=== PATIENT | female | born 1965 | race Caucasian/White ===

== ENCOUNTER 2017-04-07 17:56 | Observation (INO) ==
--- NOTE | 2017-04-07 18:27 | Emergency Department Note ---
START Narrative - START START: I examined this patient and my medical decision-making was reviewed with the Resident Physician. I agree with the documented findings, disposition and treatment plan as described except to the extent set forth below. 51-year-old female presents emergency room for chest pain and syncope. She states that having chest pain last evening. Worse today. So she with 3 fainting spells that she describes them while attempting to stand. She states she has a history of coronary artery disease with one stent placed in 2012. She had a chemical stress test done on Wednesday. This was done not for chest pain but was done for preoperative clearance for an upcoming gastric bypass surgery. She felt fine up until last evening. She has not had any heart catheterization since 2012. She is having some chest discomfort at this time that radiates to her left jaw and back and left shoulder. I feel in the setting of 3 fainting episodes as well as chest pain today that she needs to be admitted for observation.
[2017-04-07] MEDS ORDERED: 0.9 % Sodium Chloride 1,000 ML IVC ONE (18:29)
[2017-04-07] MEDS ORDERED: Aspirin 325 MG TABLET PO ONE (18:29)
--- NOTE | 2017-04-07 18:54 | Emergency Department Note ---
Disposition Clinical Impression: Chest pain Qualifiers: Chest pain type: unspecified Qualified Code(s): R07.9 - Chest pain, unspecified Syncope Qualifiers: Syncope type: unspecified Qualified Code(s): R55 - Syncope and collapse Disposition: Still a Patient Condition: Good Referrals: Gonzalo Jones DO [Primary Care Provider] - Forms: ED Satisfaction Letter Chest Pain HPI - General Chief Complaint: ED Chest Pain Stated Complaint: Chest pain Time Seen by Provider: 04/07/17 18:06 Source: patient Limitations: no limitations Vital Signs Reviewed: Yes Nursing Notes Reviewed: Yes - History of Present Illness HPI Narrative: Ms. Maldonado is 51-year-old female with a past medical history of hypertension, CVA, and SVT presents to the ED for chest pain and syncope. She also states she has a history of coronary artery disease with one stent placed in 2012. She states that she had chest pain last evening that worsened today. She describes the chest pain as heavy pressure in the middle of her chest that radiates to her back and up to the left side of her jaw. She also stated that she had three fainting episodes last night after she had sex with her . She denies any head trauma and stated that each fainting spell lasted for no more than 30 seconds. She also had a chemical stress test done on Wednesday for preoperative clearance for an upcoming gastric bypass surgery. 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 Del Rio, and he recommended that she comes to the ED. She admits continued chest pain and shortness of breath. She denies any fever, headaches, palpitations, abdominal pain, nausea and vomiting, constipation, diarrhea,and weaknesses. Onset (ago): day(s) (one day) Duration: constant Onset: during rest Severity scale (1-10): 8 Pain Radiation: back, jaw/teeth Improves with: nothing Worsens with: nothing Associated symptoms: Reports: dyspnea. Denies: nausea, vomiting, diaphoresis, palpitations, fever - Related Data Home Medications Medication Instructions Recorded Confirmed Atenolol [Tenormin] 25 mg PO DAILY 04/23/15 03/22/17 Escitalopram [Lexapro] 20 mg PO HS 04/23/15 03/22/17 Fenofibrate [Tricor] 54 mg PO BID 04/23/15 03/22/17 Insulin Glargine,Hum.rec.anlog 30 unit SQ HS 04/23/15 03/22/17 [Lantus Solostar] Lamotrigine [Lamictal] 100 mg PO HS 04/23/15 03/22/17 Levothyroxine [Synthroid] 25 mcg PO QAM 04/23/15 03/22/17 Liraglutide [Victoza 2-Aravind] 1.8 mg SQ DAILY 04/23/15 03/22/17 Loxapine Succinate [Loxapine] 10 mg PO HS 04/23/15 03/22/17 Pravastatin Sodium [Pravachol] 40 mg PO HS 04/23/15 03/22/17 Topiramate [Topamax] 50 mg PO BID 04/23/15 03/22/17 Trospium Chloride 20 mg PO HS 04/23/15 03/22/17 Aspirin 81 mg PO DAILY 01/06/16 03/22/17 Benztropine [Cogentin] 0.5 mg PO BID 01/06/16 03/22/17 Insulin ASPART [Novolog Flexpen] 5 unit SQ TIDWM 01/06/16 03/22/17 Etanercept [Enbrel] 50 mg SQ MO 03/08/16 03/22/17 Folic Acid 1 mg PO DAILY 03/08/16 03/22/17 Pioglitazone [Actos] 30 mg PO DAILY 07/06/16 03/22/17 Famotidine [Pepcid] 40 mg PO BID 10/14/16 03/22/17 LORazepam [Ativan] 0.5 mg PO DAILY PRN 10/14/16 03/22/17 Loratadine [Claritin] 10 mg PO DAILY 10/14/16 03/22/17 Meclizine HCl [Verticalm] 25 mg PO BID PRN 10/14/16 03/22/17 Montelukast [Singulair] 10 mg PO QPM 10/14/16 03/22/17 Multivitamin [Multi-Day Vitamins] 1 each PO DAILY 10/14/16 03/22/17 Nitroglycerin [Nitrostat] 0.4 mg SL Q3MIN PRN 10/14/16 03/22/17 SUMAtriptan succinate [Imitrex] 50 - 100 mg PO DAILY PRN 10/14/16 03/22/17 Cholecalciferol (Vitamin D3) 4,000 unit PO QDPC 12/25/16 03/22/17 [Vitamin D3] Methotrexate [Otrexup] 15 mg PO TH 12/25/16 03/22/17 Promethazine HCl 12.5 mg PO Q4-6H PRN 12/25/16 03/22/17 Allergies Allergy/AdvReac Type Severity Reaction Status Date / Time adenosine [From Adenocard] AdvReac Hypertensio Verified 03/22/17 12:35 n azithromycin AdvReac Nausea, Verified 03/22/17 12:35 rash diazepam AdvReac See Verified 03/22/17 12:35 Comments diltiazem AdvReac See Verified 03/22/17 12:35 Comments duloxetine [From Cymbalta] AdvReac See Verified 03/22/17 12:35 Comments Erythromycin Base AdvReac See Verified 03/22/17 12:35 [From Rolando-Tab] Comments metformin AdvReac flu like Verified 03/22/17 12:35 symptoms sertraline [From Zoloft] AdvReac "makes me Verified 03/22/17 12:35 cry" Verapamil AdvReac Hypertensio Verified 03/22/17 12:35 n Constitutional: Denies: fever, chills, weakness, weight change Eyes: Denies: eye pain, eye discharge, vision change ENT ED: Denies: ear pain, throat pain, dental pain, hearing loss, epistaxis, congestion, dysphagia Cardiovascular: Reports: as per HPI, chest pain. Denies: palpitations, syncope Respiratory: Reports: dyspnea. Denies: cough, wheezes, hemoptysis, stridor Gastrointestinal: Denies: abdominal pain, nausea, vomiting, diarrhea, constipation, hematemesis, melena, hematochezia Genitourinary: Denies: dysuria, frequency, hematuria, discharge Musculoskeletal: Denies: back pain, neck pain, arthralgia, myalgia Integumentary: Denies: rash, abrasion, lesions Neurological: Denies: headache, weakness, numbness, paresthesias, confusion, abnormal gait, vertigo Psychiatric: Denies: anxiety, depression, suicidal thoughts, homicidal thoughts , auditory hallucinations, visual hallucinations Endocrine: Denies: fatigue Hematological/Lymphatic: Denies: easy bleeding, easy bruising Allergic/Immunologic: Denies: facial swelling, urticaria Chest Pain PMH - Past Medical History Medical history: Reports: arthritis, asthma, coronary artery disease, diabetes, fibromyalgia, GERD, hyperlipidemia, hypertension, migraine, thyroid disease, valvular heart disease, other Surgical history: Reports: angioplasty/stent, breast surgery, cholecystectomy, herniorrhaphy, hip replacement, hysterectomy, orthopedic, other, pacemaker/AICD Psychiatric history: Reports: anxiety, depression 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 - Social History Smoking Status: Never smoker Alcohol use: Reports: none Drug use: Reports: none Physical Exam - General Limitations: no limitations General appearance: alert - Head Head exam: atraumatic, normocephalic, normal inspection - Eye Eye exam: Present: normal appearance, PERRL, EOMI - Expanded Eye Exam Pupils: Left: reactive - ENT ENT exam: normal exam, normal oropharynx, mucous membranes moist - Expanded ENT Exam External ear exam: Present: normal external inspection Mouth exam: Present: normal external inspection Teeth exam: Present: normal inspection Throat exam: Present: normal inspection - Neck Neck exam: Present: normal inspection, full ROM, trachea midline - Chest Chest inspection: Present: normal inspection, symmetric chest wall rise - Respiratory Respiratory exam: Present: normal lung sounds bilaterally. Absent: respiratory distress, wheezes - Cardiovascular Cardiovascular exam: Present: regular rate, normal rhythm, normal heart sounds. Absent: rubs, gallop, clicks - Abdominal Exam Abdominal exam: Present: soft, Non-Tender. Absent: tenderness, distention, guarding, rebound, rigidity - Extremities Exam Extremities exam: Present: normal inspection, full ROM. Absent: tenderness, pedal edema - Expanded Upper Extremity Exam Shoulder exam: Present: normal inspection, full ROM Arm exam: Present: normal inspection, full ROM Elbow exam: Present: normal inspection, full ROM Forearm/Wrist exam: Present: normal inspection, full ROM Hand exam: Present: normal inspection, full ROM Vascular exam: Normal: capillary refill, radial pulse - Expanded Lower Extremity Exam Hip/Pelvis exam: Present: normal inspection, full ROM Upper leg exam: Present: normal inspection, full ROM Knee exam: Present: normal inspection, full ROM Lower leg exam: Present: full ROM, swelling (+1 pitting edema in the bilateral lower extremities) Ankle exam: Present: normal inspection, full ROM Foot/toe exam: Present: normal inspection, full ROM Neurovascular/Tendon exam: Absent: motor deficit, sensory deficit, tendon deficit - Back Exam Back exam: Present: normal inspection, full ROM. Absent: tenderness - Neurological Exam Neurological exam: Present: alert, oriented X3, CN II-XII intact - Expanded Neurological Exam Patient oriented to: Present: person, place, time Cranial nerves: EOM function (II, III, IV, ): Normal, facial sensation (V): Normal, facial palsy (VII): Normal Cerebellar function: finger to nose: Normal Coma Scale Eye Opening: Spontaneous Coma Scale Motor Response: Obeys Commands Coma Scale Verbal Response: Oriented Coma Scale Total: 15 - Psychiatric Psychiatric exam: Present: normal affect, normal mood - Skin Skin exam: Present: warm, dry, intact, normal color Course Vital Signs Temperature 97.4 F L 04/07/17 17:59 Pulse Rate 83 04/07/17 17:59 Respiratory Rate 18 04/07/17 17:59 Blood Pressure 152/104 04/07/17 17:59 O2 Sat by Pulse Oximetry 100 04/07/17 17:59 Temperature 97.4 F L 04/07/17 17:59 Pulse Rate 83 04/07/17 17:59 Respiratory Rate 18 04/07/17 17:59 Blood Pressure 152/104 04/07/17 17:59 O2 Sat by Pulse Oximetry 100 04/07/17 17:59 Oxygen Delivery Oxygen Delivery Room Air Chest Pain - MDM Narrative Medical decision making narrative: Ms. Maldonado is 51-year-old female with a past medical history of hypertension, CVA, and SVT presents to the ED for chest pain and syncope. She also states she has a history of coronary artery disease with one stent placed in 2012. She states that she had chest pain last evening that worsened today. She describes the chest pain as heavy pressure in the middle of her chest that radiates to her back and up to the left side of her jaw. Imaging is still pending. Will sign out patient to night team. - Medical Records Medical records reviewed: Yes I reviewed the patient's medical records. - EKG Data EKG attestation: Yes I reviewed and interpreted this EKG. EKG shows normal: sinus rhythm Rate: normal Rhythm: NSR [place]/QRS: normal Interpretation: no acute changes
[2017-04-07] MEDS: Nitroglycerin 0.4 MG TAB.SUBL SL PRN ×3 (19:00→19:31)
[2017-04-07 19:06] LABS: Basophils % 0.4 %; Eosinophils # 0.2 K/mcL (0.0-0.6); Eosinophils % 3.1 %; Hematocrit 38.5 % (35.3-44.9); Hemoglobin 12.2 g/dL (11.5-15.4); Immature Granulocytes % 0.4 % (0-4); Lymphocytes # 2.4 K/mcL (0.6-4.6); Lymphocytes % 48.9 %; Mean Corpuscular HGB Conc 31.7 g/dL (31.6-35.5); Mean Corpuscular Hemoglobin 30.4 pg (28.0-33.3); Mean Platelet Volume 10.6 fL (9.4-12.4); Monocytes # 0.5 K/mcL (0.0-1.3); Monocytes % 9.2 %; Neutrophils # 1.9 K/mcL (1.6-8.9); Platelet Count 138 K/mcL (140-400); Red Blood Count 4.01 M/mcL (3.82-4.97); Red Cell Distribution Width 13.9 % (11.5-14.5)
[2017-04-07 19:11] LABS: Prothrombin Time 10.4 Seconds (9.4-12.1)
[2017-04-07 19:13] LABS: Activated Partial Thrombo Time 29.4 Seconds (26.0-36.0)
[2017-04-07 19:18] LABS: BUN/Creatinine Ratio 14 (6-26); Blood Urea Nitrogen 16 mg/dL (7-20); Calcium 9.3 mg/dL (8.6-10.8); Carbon Dioxide 22 mEq/L (19-29); Chloride 110 mEq/L (98-109); Glucose 190 mg/dL (70-99); Osmolality,Calculated 298 (280-300); Sodium 141 mEq/L (136-145); eGFR For African Americans > 60 (> 60); eGFR For Non-African Americans 50 (> 60)
[2017-04-07 19:28] LABS: Platelet Clumps Few (Not Present); Platelet Estimate Normal (Normal)
[2017-04-07 19:55] LABS: Bilirubin,Urine Negative (Negative); Blood,Urine Negative (Negative); Clarity,Urine Clear (Clear); Color,Urine Yellow (Yellow); Glucose,Urine (UA) 100 mg/dL (Normal); Ketones,Urine Negative (Negative); Leukocyte Esterase,Urine Negative (Negative); Nitrite,Urine Negative (Negative); Protein,Urine Negative (Neg-Trace); Specific Gravity,Urine 1.011 (1.010-1.025); Urobilinogen,Urine Normal (Normal)
--- NOTE | 2017-04-07 20:05 | Emergency Department Note ---
Disposition Clinical Impression: Chest pain Qualifiers: Chest pain type: unspecified Qualified Code(s): R07.9 - Chest pain, unspecified Syncope Qualifiers: Syncope type: unspecified Qualified Code(s): R55 - Syncope and collapse Disposition: Admitted As Inpatient Condition: Good Referrals: Gonzalo Jones DO [Primary Care Provider] - Forms: ED Satisfaction Letter Time of Disposition: 20:56 General Adult HPI - General Chief complaint: ED Chest Pain Stated complaint: Chest pain Time Seen by Provider: 04/07/17 18:06 Source: patient Limitations: no limitations Nursing Notes Reviewed: Yes Vital Signs Reviewed: Yes - History of Present Illness Pain Scale: 6 - Related Data Home Medications Medication Instructions Recorded Confirmed Atenolol [Tenormin] 25 mg PO DAILY 04/23/15 04/07/17 Escitalopram [Lexapro] 20 mg PO HS 04/23/15 04/07/17 Fenofibrate [Tricor] 54 mg PO BID 04/23/15 04/07/17 Insulin Glargine,Hum.rec.anlog 30 unit SQ HS 04/23/15 04/07/17 [Lantus Solostar] Lamotrigine [Lamictal] 100 mg PO HS 04/23/15 04/07/17 Levothyroxine [Synthroid] 25 mcg PO QAM 04/23/15 04/07/17 Liraglutide [Victoza 2-Aravind] 1.8 mg SQ DAILY 04/23/15 04/07/17 Loxapine Succinate [Loxapine] 10 mg PO HS 04/23/15 04/07/17 Pravastatin Sodium [Pravachol] 40 mg PO HS 04/23/15 04/07/17 Topiramate [Topamax] 50 mg PO BID 04/23/15 04/07/17 Trospium Chloride 20 mg PO HS 04/23/15 04/07/17 Aspirin 81 mg PO DAILY 01/06/16 04/07/17 Benztropine [Cogentin] 0.5 mg PO BID 01/06/16 04/07/17 Insulin ASPART [Novolog Flexpen] 5 unit SQ TIDWM 01/06/16 04/07/17 Etanercept [Enbrel] 50 mg SQ MO 03/08/16 04/07/17 Folic Acid 1 mg PO DAILY 03/08/16 04/07/17 Pioglitazone [Actos] 30 mg PO DAILY 07/06/16 04/07/17 Famotidine [Pepcid] 40 mg PO BID 10/14/16 04/07/17 LORazepam [Ativan] 0.5 mg PO DAILY PRN 10/14/16 04/07/17 Loratadine [Claritin] 10 mg PO DAILY 10/14/16 04/07/17 Meclizine HCl [Verticalm] 25 mg PO BID PRN 10/14/16 04/07/17 Montelukast [Singulair] 10 mg PO QPM 10/14/16 04/07/17 Multivitamin [Multi-Day Vitamins] 1 each PO DAILY 10/14/16 04/07/17 Nitroglycerin [Nitrostat] 0.4 mg SL Q5M PRN 10/14/16 04/07/17 SUMAtriptan succinate [Imitrex] 50 mg PO DAILY PRN MDD 100 mg 10/14/16 04/07/17 Cholecalciferol (Vitamin D3) 4,000 unit PO DAILY 12/25/16 04/07/17 [Vitamin D3] Methotrexate [Otrexup] 15 mg PO TH 12/25/16 04/07/17 Promethazine HCl 12.5 mg PO Q4-6H PRN 12/25/16 04/07/17 Amitriptyline [Elavil] 25 mg PO HS 04/07/17 04/07/17 Meloxicam [Meloxicam] 15 mg PO DAILY 04/07/17 04/07/17 Orphenadrine Citrate 100 mg PO HS 04/07/17 04/07/17 SUMAtriptan succinate [Imitrex] 6 mg SQ DAILY PRN 04/07/17 04/07/17 Allergies Allergy/AdvReac Type Severity Reaction Status Date / Time adenosine [From Adenocard] AdvReac Hypertensio Verified 03/22/17 12:35 n azithromycin AdvReac Nausea, Verified 03/22/17 12:35 rash diazepam AdvReac See Verified 03/22/17 12:35 Comments diltiazem AdvReac See Verified 03/22/17 12:35 Comments duloxetine [From Cymbalta] AdvReac See Verified 03/22/17 12:35 Comments Erythromycin Base AdvReac See Verified 09/11/17 12:35 [From Rolando-Tab] Comments metformin AdvReac flu like Verified 03/22/17 12:35 symptoms sertraline [From Zoloft] AdvReac "makes me Verified 03/22/17 12:35 cry" Verapamil AdvReac Hypertensio Verified 03/22/17 12:35 n All systems ED: reviewed and negative except as stated. Constitutional: Denies: fever, chills, weakness, weight change Eyes: Denies: eye pain, eye discharge, vision change ENT ED: Denies: ear pain, throat pain, dental pain, hearing loss, epistaxis, congestion, dysphagia Cardiovascular: Reports: as per HPI, chest pain. Denies: palpitations, syncope Respiratory: Reports: dyspnea. Denies: cough, wheezes, hemoptysis, stridor Gastrointestinal: Denies: abdominal pain, nausea, vomiting, diarrhea, constipation, hematemesis, melena, hematochezia Genitourinary: Denies: dysuria, frequency, hematuria, discharge Musculoskeletal: Denies: back pain, neck pain, arthralgia, myalgia Integumentary: Denies: rash, abrasion, lesions Neurological: Denies: headache, weakness, numbness, paresthesias, confusion, abnormal gait, vertigo Psychiatric: Denies: anxiety, depression, suicidal thoughts, homicidal thoughts , auditory hallucinations, visual hallucinations Endocrine: Denies: fatigue Hematological/Lymphatic: Denies: easy bleeding, easy bruising Allergic/Immunologic: Denies: facial swelling, urticaria Past Medical History - Past Medical History Attestation: Yes The following information was validated with the patient. 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 Cardiac workup has been ordered and was pending. Her workup is basically normal. Patient advised that she had 3 episodes of postcoital syncope yesterday. She denies any seizure-like activity. She states she does have a history of pseudoseizures however has not had one of these in 3 years. She also has a history of tachycardia that she takes a beta florin for. She denies feeling like her heart was racing or a fluttering feeling prior to the syncope. She did have full resolution and was completely awake between syncopal episodes. She states ever since she has had a chest pain that is a heaviness to the left side of her chest. This was partially relieved by nitroglycerin here. She did receive aspirin. She refuses any additional nitroglycerin at this time. She does have a history of one stent and a CVA. She had a cardiac stress test approximately 3 months ago. She states this was normal however she got very dizzy and was lightheaded afterwards. She states that she does have a known 40% stenosis to one of her arteries. Patient is resting comfortably in bed at this time. Due to patient' s known ACS and continue chest pain we will admit her to the hospital. She is agreeable to this. Vital Signs Temperature 97.4 F L 04/07/17 17:59 Pulse Rate 83 04/07/17 17:59 Respiratory Rate 18 04/07/17 17:59 Blood Pressure 152/104 04/07/17 17:59 O2 Sat by Pulse Oximetry 100 04/07/17 17:59 Temperature 97.4 F L 04/07/17 17:59 Pulse Rate 75 04/07/17 19:56 Respiratory Rate 14 04/07/17 19:56 Blood Pressure 129/80 04/07/17 19:56 O2 Sat by Pulse Oximetry 100 04/07/17 19:56 Oxygen Delivery Oxygen Delivery Room Air Medical Decision Making - Medical Records Medical records reviewed: Yes I reviewed the patient's medical records. - Lab Data Lab results reviewed: Yes I reviewed the patient's lab results. Result diagrams: 04/07/17 18:59 04/07/17 18:59 Lab Results 04/07/17 04/07/17 04/07/17 Range/Units 18:59 18:59 18:59 WBC 4.9 (4.3-11.1) K/mcL RBC 4.01 (3.82-4.97) M/mcL Hgb 12.2 (11.5-15.4) g/dL Hct 38.5 (35.3-44.9) % MCV 96.0 (83.0-100.0) fL MCH 30.4 (28.0-33.3) pg MCHC 31.7 (31.6-35.5) g/dL RDW 13.9 (11.5-14.5) % Plt Count 138 L (140-400) K/mcL MPV 10.6 (9.4-12.4) fL Immature Gran % 0.4 (0-4) % Seg Neutrophils % 38.0 % Lymphocytes % 48.9 % Monocytes % 9.2 % Eosinophils % 3.1 % Basophils % 0.4 % Neutrophils # 1.9 (1.6-8.9) K/mcL Lymphocytes # 2.4 (0.6-4.6) K/mcL Monocytes # 0.5 (0.0-1.3) K/mcL Eosinophils # 0.2 (0.0-0.6) K/mcL Basophils # 0.0 (0.0-0.2) K/mcL Platelet Estimate Normal (Normal) Clumped Platelets Few A (Not Present) PT 10.4 (9.4-12.1) Seconds INR 1.0 APTT 29.4 (26.0-36.0) Seconds Sodium 141 (136-145) mEq/L Potassium 4.0 (3.5-4.5) mEq/L Chloride 110 H (98-109) mEq/L Carbon Dioxide 22 (19-29) mEq/L BUN 16 (7-20) mg/dL Creatinine 1.15 H (0.57-1.11) mg/dL Est GFR ( Amer) > 60 (> 60) Est GFR (Non-Af Amer) 50 L (> 60) BUN/Creatinine Ratio 14 (6-26) Glucose 190 H (70-99) mg/dL Calculated Osmolality 298 (280-300) Calcium 9.3 (8.6-10.8) mg/dL Troponin I (0-0.03) ng/mL Urine Color (Yellow) Urine Clarity (Clear) Urine pH (5.0-8.0) pH Units Ur Specific [place] (1.010-1.025) Urine Protein (Neg-Trace) mg/dL Urine Glucose (UA) (Normal) mg/dL Urine Ketones (Negative) mg/dL Urine Blood (Negative) Urine Nitrite (Negative) Urine Bilirubin (Negative) Urine Urobilinogen (Normal) mg/dL Ur Leukocyte Esterase (Negative) Ur Culture Indicated? (NO) Urine Test (Negative) 04/07/17 04/07/17 04/07/17 Range/Units 18:59 19:45 19:45 WBC (4.3-11.1) K/mcL RBC (3.82-4.97) M/mcL Hgb (11.5-15.4) g/dL Hct (35.3-44.9) % MCV (83.0-100.0) fL MCH (28.0-33.3) pg MCHC (31.6-35.5) g/dL RDW (11.5-14.5) % Plt Count (140-400) K/mcL MPV (9.4-12.4) fL Immature Gran % (0-4) % Seg Neutrophils % % Lymphocytes % % Monocytes % % Eosinophils % % Basophils % % Neutrophils # (1.6-8.9) K/mcL Lymphocytes # (0.6-4.6) K/mcL Monocytes # (0.0-1.3) K/mcL Eosinophils # (0.0-0.6) K/mcL Basophils # (0.0-0.2) K/mcL Platelet Estimate (Normal) Clumped Platelets (Not Present) PT (9.4-12.1) Seconds INR APTT (26.0-36.0) Seconds Sodium (136-145) mEq/L Potassium (3.5-4.5) mEq/L Chloride (98-109) mEq/L Carbon Dioxide (19-29) mEq/L BUN (7-20) mg/dL Creatinine (0.57-1.11) mg/dL Est GFR ( Amer) (> 60) Est GFR (Non-Af Amer) (> 60) BUN/Creatinine Ratio (6-26) Glucose (70-99) mg/dL Calculated Osmolality (280-300) Calcium (8.6-10.8) mg/dL Troponin I 0.01 (0-0.03) ng/mL Urine Color Yellow (Yellow) Urine Clarity Clear (Clear) Urine pH 7.0 (5.0-8.0) pH Units Ur Specific [place] 1.011 (1.010-1.025) Urine Protein Negative (Neg-Trace) mg/dL Urine Glucose (UA) 100 H (Normal) mg/dL Urine Ketones Negative (Negative) mg/dL Urine Blood Negative (Negative) Urine Nitrite Negative (Negative) Urine Bilirubin Negative (Negative) Urine Urobilinogen Normal (Normal) mg/dL Ur Leukocyte Esterase Negative (Negative) Ur Culture Indicated? NO (NO) Urine Test Negative (Negative) - Radiology Data Radiology results reviewed: Yes I reviewed the patient's radiology results. Chest X-Ray 04/07/17 18:19 IMPRESSION: No acute abnormality. D/ / 04/07/2017 18:46:58 Shiraz Ruffin MD / norman Interpreting Provider: Shiraz Ruffin MD - EKG Data EKG #1 EKG attestation: Yes I reviewed and interpreted this EKG. EKG results narrative: Normal sinus rhythm at a rate of 80. LA interval is 189. QRS duration is 89. QT is 385. QTC is 421. No signs of acute ischemia. No previous EKG to compare to. No delta waves consistent with the WPW or any signs of [place]. Attestation Statement - Attestation Attestation: I, Marcell Walter MD, personally evaluated this patient and discussed their management with the resident physician. I reviewed the resident's note and agree with the documented findings, medical decision making, and plan of care. This patient was signed out at shift change from Dr. Louie and Dr. Carl. Please refer to their notes for complete details of history and physical examination. At shift change patient is awaiting lab results. Patient presented with a complaint of 3 syncopal episodes last night over a 30 minute period. She also complains of some left-sided chest pain radiating to the left side of the neck. Chest pain was improved with nitroglycerin and aspirin. Patient has a known history of coronary artery disease and has a coronary artery stent. She also has a history of syncope in the distant past secondary to tachycardia. She did not notice any palpitations with the syncopal episodes last night. She states that she just became very weak and dizzy and lightheaded and passed out for several seconds. No fall or injury from the passing out episodes. On examination patient is a well-developed obese female in no acute distress. She is alert and oriented 3. There is no cyanosis or diaphoresis. Chest is nontender to palpation. Breath sounds are clear and equal bilaterally. Heart regular rate and rhythm. Abdomen soft and nontender with normal bowel sounds. No gross focal neurological deficits. Labs reviewed. Chest x-ray negative. No acute abnormality on EKG. Dr. Clark discussed with neurology, Dr. Desir, and he recommended admission by the hospitalist. The hospitalist, Dr. Rodriguez, was consulted and accepted admission of the patient.
[2017-04-07] MEDS ORDERED: Ketorolac 30 MG/ML VIAL IVP PRN (21:25)
[2017-04-07] MEDS ORDERED: *HR* Morphine 2 MG/ML SYRINGE IVP PRN (21:25)
[2017-04-07] MEDS ORDERED: Naloxone 0.4 MG/ML INJ IVP PRN (21:25)
[2017-04-07] MEDS ORDERED: 0.9 % Sodium Chloride 1,000 ML IVC SCH (21:30)
--- NOTE | 2017-04-07 21:56 | Internal Med History&Physical ---
Date of Encounter: 04/07/17 Time of Encounter: 21:30 Assessment and Plan (1) Syncope Current visit: Yes Status: Acute patient presented to the hospital with 3 episodes of syncope. These episodes happened after patient had intercourse with her . -Patient admits to having one prior syncopal episode in 1993 due to a rapid heart rate. -Carotid ultrasound -Echocardiogram -EEG -Orthostatic vital signs -Fluids; saline 100 mL/h -Consult to cardiology. Qualifiers: Syncope type: unspecified Qualified Code(s): R55 - Syncope and collapse (2) Chest pain Current visit: No Status: Resolved Chest pain improved with the administration of ventricles are in. -EKG showed no acute abnormalities. -Chest x-ray showed no acute findings. -Continue to monitor. -Cardiology has been consulted. Qualifiers: Chest pain type: chest pain due to myocardial ischemia Qualified Code(s): I20.8 - Other forms of angina pectoris (3) Diabetes Current visit: No Status: Acute Continue patient's home insulin. -Patient presented with a glucose of 190. -Hemoglobin A1c has been ordered. Qualifiers: Diabetes mellitus type: type 2 Diabetes mellitus complication status: with circulatory complication Diabetes mellitus complication detail: with other circulatory complications Diabetes mellitus terminal worker insulin use: with terminal worker use Qualified Code(s): E11.59 - Type 2 diabetes mellitus with other circulatory complications; Z79.4 - superintendent terminal (current) use of insulin (4) Hypertension Current visit: No Status: Acute Patient presented to the hospital with a blood pressure of 152/104. -Continue home meds. Qualifiers: Hypertension type: essential hypertension Qualified Code(s): I10 - Essential (primary) hypertension (5) DVT prophylaxis Current visit: No Status: Acute Internal Medicine - H&P: HPI Chief complaint: chest pain Admitted From: Home History of present illness: Jose Antonio Maldonado is a 51 year old female with a past medical history of hypertension , CVA, and SVT who presented to the emergency department this evening with a chief complaint of chest pain and syncope. Patient states that when she was at home, she experienced 3 episodes of syncope after intercourse with her . She also began to experience chest pain which she described as a crushing, pressure-like pain that radiated into her back and up into the left side of her jaw. Her fainting episodes lasted approximately 30 seconds. She states that right before she experienced a syncopal episodes, she felt as though she was spinning. She did not have any memory loss after the incident, and did not have any neurologic deficits. Patient does admit that this syncopal episode has happened to her once before in 1993. She states that when it happened back then, it was due to a rapid heart rate. Patient was given nitroglycerin, which did improve her chest pain. Patient states that since her arrival at the hospital she has gotten better. She denies feeling any dizziness or weakness. Admission vitals were as follows: Temperature was 97.4, pulse was 83 bpm, respiratory rate was 18, blood pressure was 152/104, and O2 saturation was 100. Patient had an elevated glucose at 190. Chest x-ray was performed and showed no acute findings. Full cardiac workup was ordered. EKG is now pending. Patient does have a history of coronary artery disease. Patient received a chemical stress test on Wednesday for preoperative clearance for an upcoming gastric bypass surgery. Her chest pain began, patient contacted her clinical safety specialist, Dr. Del Rio, who told her to come to the ER. Patient denies any nausea, vomiting, diaphoresis, weakness, visual changes, or palpitations. Past Med Surg Social Fam HX - Past Medical History Medical history: arthritis, asthma, coronary artery disease, diabetes, fibromyalgia, GERD, hyperlipidemia, hypertension, migraine, thyroid disease, valvular heart disease, other Psychiatric history: anxiety, depression - Past Surgical History Surgical History: angioplasty/stent, breast surgery, cholecystectomy, herniorrhaphy, hip replacement, hysterectomy, orthopedic, other, pacemaker/AICD - Social History Smoking Status: Never smoker Smokeless Tobacco Status: No Alcohol use: none Drug use: none - Family History Mother Living Status: Hx Family Cardiac Disorders: Yes (HTN, CHF) Hx Family Respiratory Disorders: Yes (copd) Hx Family Cancer: Yes (leukemia) Hx Family Endocrine Disorder: Yes (dm) Father Hx Family Cardiac Disorders: Yes (HTN) Hx Family Respiratory Disorders: Yes (copd, emphysema) Hx Family Cancer: Yes (prostate cancer) Internal Medicine - H&P: Meds Atenolol [Tenormin] 25 mg PO DAILY 04/23/15 [History] Escitalopram [Lexapro] 20 mg PO HS 04/23/15 [History] Fenofibrate [Tricor] 54 mg PO BID 04/23/15 [History] Insulin Glargine,Hum.rec.anlog [Lantus Solostar] 30 unit SQ HS 04/23/15 [History ] Lamotrigine [Lamictal] 100 mg PO HS 04/23/15 [History] Levothyroxine [Synthroid] 25 mcg PO QAM 04/23/15 [History] Liraglutide [Victoza 2-Aravind] 1.8 mg SQ DAILY 04/23/15 [History] Loxapine Succinate [Loxapine] 10 mg PO HS 04/23/15 [History] Pravastatin Sodium [Pravachol] 40 mg PO HS 04/23/15 [History] Topiramate [Topamax] 50 mg PO BID 04/23/15 [History] Trospium Chloride 20 mg PO HS 04/23/15 [History] Aspirin 81 mg PO DAILY 01/06/16 [History] Benztropine [Cogentin] 0.5 mg PO BID 01/06/16 [History] Insulin ASPART [Novolog Flexpen] 5 unit SQ TIDWM 01/06/16 [History] Etanercept [Enbrel] 50 mg SQ MO 03/08/16 [History] Folic Acid 1 mg PO DAILY 03/08/16 [History] Pioglitazone [Actos] 30 mg PO DAILY 07/06/16 [History] Famotidine [Pepcid] 40 mg PO BID 10/14/16 [History] LORazepam [Ativan] 0.5 mg PO DAILY PRN 10/14/16 [History] Loratadine [Claritin] 10 mg PO DAILY 10/14/16 [History] Meclizine HCl [Verticalm] 25 mg PO BID PRN 10/14/16 [History] Montelukast [Singulair] 10 mg PO QPM 10/14/16 [History] Multivitamin [Multi-Day Vitamins] 1 each PO DAILY 10/14/16 [History] Nitroglycerin [Nitrostat] 0.4 mg SL Q5M PRN 10/14/16 [History] SUMAtriptan succinate [Imitrex] 50 mg PO DAILY PRN MDD 100 mg 10/14/16 [History] Cholecalciferol (Vitamin D3) [Vitamin D3] 4,000 unit PO DAILY 12/25/16 [History] Methotrexate [Otrexup] 15 mg PO TH 12/25/16 [History] Promethazine HCl 12.5 mg PO Q4-6H PRN 12/25/16 [History] Amitriptyline [Elavil] 25 mg PO HS 04/07/17 [History] Meloxicam [Meloxicam] 15 mg PO DAILY 04/07/17 [History] Orphenadrine Citrate 100 mg PO HS 04/07/17 [History] SUMAtriptan succinate [Imitrex] 6 mg SQ DAILY PRN 04/07/17 [History] 3 Allergy/AdvReac Type Severity Reaction Status Date / Time adenosine [From Adenocard] AdvReac Hypertensio Verified 03/22/17 12:35 n azithromycin AdvReac Nausea, Verified 03/22/17 12:35 rash diazepam AdvReac See Verified 03/22/17 12:35 Comments diltiazem AdvReac See Verified 03/22/17 12:35 Comments duloxetine [From Cymbalta] AdvReac See Verified 03/22/17 12:35 Comments Erythromycin Base AdvReac See Verified 03/22/17 12:35 [From Rolando-Tab] Comments metformin AdvReac flu like Verified 03/22/17 12:35 symptoms sertraline [From Zoloft] AdvReac "makes me Verified 03/22/17 12:35 cry" Verapamil AdvReac Hypertensio Verified 03/22/17 12:35 n All Systems PM: A 10-system review of systems was performed and is negative for pertinent findings except as documented above in the HPI. - Constitutional Constitutional: no chills, no fever(s), no night sweats - EENT Eyes: no change in vision, no discharge, no pain, no photophobia Nose, mouth and throat: no neck pain - Cardiovascular Cardiovascular ROS IM: chest pain, no diaphoresis, no dyspnea, no palpitations - Respiratory Respiratory: no cough, no dyspnea, no dyspnea on exertion, no wheezing - Gastrointestinal Gastrointestinal: no nausea, no vomiting - Neurological Neurological ROS: no dizziness, no vertigo, no weakness - Constitutional Vitals: Temp Pulse Resp BP Pulse Ox 97.6 F 77 16 145/83 98 04/07/17 21:45 04/07/17 21:45 04/07/17 21:45 04/07/17 21:45 04/07/17 21:45 General appearance: Present: A&O X 3 - Expanded Neck Exam Neck exam: Absent: carotid bruit - Respiratory Respiratory exam: Present: CTAB. Absent: accessory muscle use, rales, rhonchi, wheezes - Cardiovascular Cardiovascular exam: Present: RRR, +S1, +S2. Absent: diastolic murmur, gallop, rubs, systolic murmur - Psychiatric Psychiatric exam: Present: normal mood Internal Med - H&P Results - Labs CBC & Chem 7: 04/07/17 18:59 04/07/17 18:59
--- NOTE | 2017-04-07 22:24 | Event Note ---
Date of Encounter: 04/07/17 Time of Encounter: 22:22 Patient seen and examined with bacteriologist medical. Patient presents with 3 syncopal episodes and intermittent chest pain. Will rule out acute coronary syndrome. r/o arrhythmias. EKG shows no ST segment shifts and initial troponin is normal . check Serial troponin. Cardiology consultation. For the syncopal episodes, did not seem to have a prodrome. Will also check echocardiogram carotid Doppler's, EEG, orthostatic vitals. Gentle hydration. Patient is full code. Observation admission
[2017-04-07] MEDS: 0.9 % Sodium Chloride 1,000 ML IVC SCH (23:34)
[2017-04-08] MEDS ORDERED: lamoTRIgine 100 MG TABLET PO ONE ×2 (00:47→01:45)
[2017-04-08] MEDS ORDERED: *HR* Enoxaparin 100 MG/ML SYRINGE SQ ONE (01:00)
[2017-04-08 01:30] LABS: Basophils % 0.6 %; Eosinophils # 0.2 K/mcL (0.0-0.6); Eosinophils % 3.5 %; Hemoglobin 11.3 g/dL (11.5-15.4); Immature Granulocytes % 0.2 % (0-4); Lymphocytes # 2.6 K/mcL (0.6-4.6); Lymphocytes % 53.4 %; Mean Corpuscular HGB Conc 32.3 g/dL (31.6-35.5); Mean Corpuscular Hemoglobin 30.7 pg (28.0-33.3); Mean Corpuscular Volume 95.1 fL (83.0-100.0); Monocytes # 0.4 K/mcL (0.0-1.3); Monocytes % 8.6 %; Neutrophils # 1.7 K/mcL (1.6-8.9); Platelet Count 209 K/mcL (140-400); Red Blood Count 3.68 M/mcL (3.82-4.97); Segmented Neutrophils % 33.7 %
[2017-04-08 01:36] LABS: BUN/Creatinine Ratio 16 (6-26); Blood Urea Nitrogen 18 mg/dL (7-20); Calcium 8.6 mg/dL (8.6-10.8); Carbon Dioxide 21 mEq/L (19-29); Chloride 112 mEq/L (98-109); Glucose 232 mg/dL (70-99); Magnesium 1.8 mg/dL (1.6-2.6); Osmolality,Calculated 303 (280-300); Potassium 3.7 mEq/L (3.5-4.5); Sodium 142 mEq/L (136-145); eGFR For African Americans > 60 (> 60); eGFR For Non-African Americans 51 (> 60)
[2017-04-08 01:40] LABS: Hemoglobin A1C 7.4 %
[2017-04-08] MEDS ORDERED: NON-FORMULARY MEDICATION 1 EACH EACH (Insulin Aspart [Novolog Flexpen] 5 UNIT) SQ SCH (08:00)
[2017-04-08] MEDS: Insulin LISPRO 300 UNITS/3 ML VIAL SQ SCH ×3 (08:02→17:51)
[2017-04-08] MEDS: Levothyroxine 25 MCG TABLET PO SCH (08:14)
[2017-04-08] MEDS: Topiramate 25 MG TABLET PO SCH ×2 (08:14→22:01)
[2017-04-08] MEDS: Fenofibrate 54 MG TABLET PO SCH ×2 (08:14→21:46)
[2017-04-08] MEDS: Aspirin 81 MG TAB.CHEW PO SCH (08:14)
[2017-04-08] MEDS: Famotidine 20 MG TABLET PO SCH ×2 (08:14→21:47)
[2017-04-08] MEDS: Folic Acid 1 MG TABLET PO SCH (08:14)
--- NOTE | 2017-04-08 09:30 | Cardiology Consult Note ---
<Kiran Berumen - Last Filed: 04/08/17 12:21> Date of Encounter: 04/08/17 Time of Encounter: 08:30 Assessment and Plan (1) Chest pain Current Visit: Yes Status: Acute Per Cardiology: History of CAD with stenting to OM2 2012, negative stress test April 2015, repeat catheterization in May 2015 for recurrent chest pain which showed patent stent and otherwise nonobstructive CAD with mid-distal OM1 50% and proximal RCA 20% lesions. Patient seen again in March 2016 with recurrent chest pain and had pending outpatient catheterization ordered-- catheterization at that time showed mid LAD 40%, patent OM2 stenting. Now with negative nuclear stress test March 2017. Troponins negative 3. Atypical chest pain symptoms occurring at rest. Reports recent 2 falls and reported rib fxs x 2 to right chest wall. We had discussion regarding potential further ischemic evaluation, however patient and family agreeable to monitor and observe and f/u as outpatient. On aspirin, statin, beta florin. Intolerant to nitrates due to headaches. Previous inability to take Ranexa due to cost constraints. Discussed with Dr. Fernández, Cardiology to s/o, re-consult PRN, f/u scheduled. Qualifiers: Chest pain type: unspecified Qualified Code(s): R07.9 - Chest pain, unspecified (2) Syncope Current Visit: Yes Status: Acute Per Cardiology: Orthostatics pending. Carotid duplex and EEG pending-- ordered by primary service. Last echo February 2016 showed EF 60-65%, mild diastolic dysfunction, no significant valvular abnormality, NSWMA. Current echo with no significant findings and EF 60%, mild MR. Symptoms appear to be vasovagal in nature-- occurred with position changes after sexual intercourse and had had some dizziness with position changes. No events on tele. Cardiology will s/o. Qualifiers: Syncope type: unspecified Qualified Code(s): R55 - Syncope and collapse (3) Elevated d-dimer Current Visit: Yes Status: Acute Per Cardiology: Mild D-Dimer elevated in the 500's-- hx of mild D-dimer in the past. Has VQ pending per primary service. Has CKD stage 3A. Had recent falls an trauma. Discussion w patient/family: The assessment and plan as outlined above was discussed with the patient and/or family members who expressed understanding and agreement. All questions were answered. Thank you for involving us in the care of your patient. Please call with any questions. History of Present Illness Consult date: 04/08/17 Consult reason: CP, Syncope Chief complaint: Dizziness, CP History of present illness: Ms. Maldonado is a 51 year old female with a relevant past medical history of CAD , diabetes mellitus type 2, hypothyroidism, GERD, hypertension, hyperlipidemia, chronic back pain with stimulator, and history of CVA September 2015. Cardiology consult for chest pain and dizziness and syncope 3. Patient had recent trauma with reported rib fractures 2 to her right side over the past few weeks when she was tripped and pulled by her dog. She had recurrence of this event week later with subsequent reported finger fracture as well. She reports this past weekend with active shopping with friends with no symptoms. After sexual intercourse with her she developed episode of dizziness with loss of consciousness for about 30 seconds upon standing. This occurred on 2 other occasions within the same time frame and she reportedly came to within about 30 seconds according to . Denies any loss of bowel or bladder, denies any seizure-like activity. Blood sugar was in the 130s and systolic blood pressure in the 150s. The next day patient reported left-sided midsternal chest heaviness that lasted for a few hours and eventually subsided. She denied any accompanying symptomatology at that time. She reports hospital stay 2 episodes of lightheadedness upon standing. She has been off asa and plavix for the past 6 months-- reportedly not resumed after a surgery. They confirm last stenting in 2012. Denies any active bleeding or blood loss. Past Med Surg Social Fam HX - Past Medical History Attestation: Yes The following information was validated with the patient. Source: patient, old records reviewed, obtained from family Medical history: arthritis, asthma, coronary artery disease, diabetes, fibromyalgia, GERD, hyperlipidemia, hypertension, migraine, thyroid disease, valvular heart disease, other Psychiatric history: anxiety, depression - Past Surgical History Surgical History: angioplasty/stent, breast surgery, cholecystectomy, herniorrhaphy, hip replacement, hysterectomy, orthopedic, other, pacemaker/AICD - Social History Smoking Status: Never smoker Smokeless Tobacco Status: No Alcohol use: none Drug use: none - Family History Mother Living Status: Age at : 79 Cause of : COPD Hx Family Cardiac Disorders: Yes (HTN, CHF) Hx Family Respiratory Disorders: Yes (copd) Hx Family Cancer: Yes (leukemia) Hx Family GI Disorders: No Hx Family Genitourinary Disorders: No Hx Family Endocrine Disorder: Yes (dm) Hx Family Musculoskeletal Disorders: No Hx Family Neuromuscular Disorders: No Hx Family Neurologic Disorders: No Hx Family HEENT Disorders: No Hx Family Autoimmune Disorders: No Hx Family Reproductive Disorders: No Hx Family Psychosocial Disorders: No Hx Family Medical Disorders: No Father Living Status: Still Living Hx Family Cardiac Disorders: Yes (HTN) Hx Family Respiratory Disorders: Yes (copd, emphysema) Hx Family Cancer: Yes (prostate cancer) Hx Family GI Disorders: No Hx Family Genitourinary Disorders: No Hx Family Endocrine Disorder: No Hx Family Musculoskeletal Disorders: No Hx Family Neuromuscular Disorders: No Hx Family Neurologic Disorders: No Hx Family HEENT Disorders: No Hx Family Autoimmune Disorders: No Hx Family Reproductive Disorders: No Hx Family Psychosocial Disorders: No Hx Family Medical Disorders: No Medications and Allergies Atenolol [Tenormin] 25 mg PO DAILY 04/23/15 [History] Escitalopram [Lexapro] 20 mg PO HS 04/23/15 [History] Fenofibrate [Tricor] 54 mg PO BID 04/23/15 [History] Insulin Glargine,Hum.rec.anlog [Lantus Solostar] 30 unit SQ HS 04/23/15 [History ] Lamotrigine [Lamictal] 100 mg PO HS 04/23/15 [History] Levothyroxine [Synthroid] 25 mcg PO QAM 04/23/15 [History] Liraglutide [Victoza 2-Aravind] 1.8 mg SQ DAILY 04/23/15 [History] Loxapine Succinate [Loxapine] 10 mg PO HS 04/23/15 [History] Pravastatin Sodium [Pravachol] 40 mg PO HS 04/23/15 [History] Topiramate [Topamax] 50 mg PO BID 04/23/15 [History] Trospium Chloride 20 mg PO HS 04/23/15 [History] Aspirin 81 mg PO DAILY 01/06/16 [History] Benztropine [Cogentin] 0.5 mg PO BID 01/06/16 [History] Insulin ASPART [Novolog Flexpen] 5 unit SQ TIDWM 01/06/16 [History] Etanercept [Enbrel] 50 mg SQ MO 03/08/16 [History] Folic Acid 1 mg PO DAILY 03/08/16 [History] Pioglitazone [Actos] 30 mg PO DAILY 07/06/16 [History] Famotidine [Pepcid] 40 mg PO BID 10/14/16 [History] LORazepam [Ativan] 0.5 mg PO DAILY PRN 10/14/16 [History] Loratadine [Claritin] 10 mg PO DAILY 10/14/16 [History] Meclizine HCl [Verticalm] 25 mg PO BID PRN 10/14/16 [History] Montelukast [Singulair] 10 mg PO QPM 10/14/16 [History] Multivitamin [Multi-Day Vitamins] 1 each PO DAILY 10/14/16 [History] Nitroglycerin [Nitrostat] 0.4 mg SL Q5M PRN 10/14/16 [History] SUMAtriptan succinate [Imitrex] 50 mg PO DAILY PRN MDD 100 mg 10/14/16 [History] Cholecalciferol (Vitamin D3) [Vitamin D3] 4,000 unit PO DAILY 12/25/16 [History] Methotrexate [Otrexup] 15 mg PO TH 12/25/16 [History] Promethazine HCl 12.5 mg PO Q4-6H PRN 12/25/16 [History] Amitriptyline [Elavil] 25 mg PO HS 04/07/17 [History] Meloxicam [Meloxicam] 15 mg PO DAILY 04/07/17 [History] Orphenadrine Citrate 100 mg PO HS 04/07/17 [History] SUMAtriptan succinate [Imitrex] 6 mg SQ DAILY PRN 04/07/17 [History] 3 Allergy/AdvReac Type Severity Reaction Status Date / Time adenosine [From Adenocard] AdvReac Hypertensio Verified 03/22/17 12:35 n azithromycin AdvReac Nausea, Verified 03/22/17 12:35 rash diazepam AdvReac See Verified 03/22/17 12:35 Comments diltiazem AdvReac See Verified 03/22/17 12:35 Comments duloxetine [From Cymbalta] AdvReac See Verified 03/22/17 12:35 Comments Erythromycin Base AdvReac See Verified 03/22/17 12:35 [From Rolando-Tab] Comments metformin AdvReac flu like Verified 03/22/17 12:35 symptoms sertraline [From Zoloft] AdvReac "makes me Verified 03/22/17 12:35 cry" Verapamil AdvReac Hypertensio Verified 03/22/17 12:35 n All Systems Review: A 10-system review of systems was performed and is negative for pertinent findings except as documented above in the HPI. - Cardiovascular Cardiovascular: as per HPI, chest pain at rest, lightheadedness, syncope Physical Examination Vital Signs, Last 4 Hours Temp Pulse Resp BP Pulse Ox 04/08/17 07:50 97.8 F 82 16 144/89 96 General: Conversant, No Apparent Distress HEENT: Atraumatic, Normocephaly, Mucus Membranes Moist Neck: No JVD, Normal carotid pulses Cardiac: Reg Rate and Rhythm, Normal S1 and S2, No Murmur Lungs: Normal Breath Sounds, No Wheeze, Rales, Rhonchi Neuro: Alert and responsive, No focal deficits noted Abdomen: Soft, Non-Tender Skin: No rashes noted on visualized skin Musculoskeletal: No Chest Wall Tenderness Extremities: No Clubbing, No Cyanosis, No Edema, Normal Pulses Results 04/08/17 01:06 04/08/17 01:06 Lab Results Laboratory Tests 04/07/17 04/07/17 04/07/17 18:59 18:59 22:49 INR 1.0 D-Dimer 508 H Creatinine Est GFR (Non-Af Amer) Hemoglobin A1c Magnesium Troponin I 0.01 04/08/17 04/08/17 04/08/17 01:06 01:06 01:06 INR D-Dimer Creatinine 1.13 H Est GFR (Non-Af Amer) 51 L Hemoglobin A1c 7.4 H Magnesium 1.8 Troponin I 0.00 04/08/17 06:32 INR D-Dimer Creatinine Est GFR (Non-Af Amer) Hemoglobin A1c Magnesium Troponin I 0.02 ITS Impressions Chest X-Ray 04/07/17 18:19 IMPRESSION: No acute abnormality. D/ / 04/07/2017 18:46:58 Shiraz Ruffin MD / norman Interpreting Provider: Shiraz Ruffin MD Active Medications Amitriptyline HCl (Elavil) 25 mg PO HS [facility] Stop: 10/08/17 21:01 Aspirin (Aspirin) 81 mg PO DAILY REJI Stop: 10/08/17 09:01 Last Admin: 04/08/17 08:14 Dose: 81 mg Atenolol (Tenormin) 25 mg PO DAILY REJI Stop: 10/08/17 09:01 Last Admin: 04/08/17 08:14 Dose: 25 mg Famotidine (Pepcid) 40 mg PO BID [facility] PRN Reason: Protocol Stop: 10/08/17 09:01 Last Admin: 04/08/17 08:14 Dose: 40 mg Fenofibrate (Tricor) 54 mg PO BID [facility] PRN Reason: Protocol Stop: 10/08/17 09:01 Last Admin: 04/08/17 08:14 Dose: 54 mg Folic Acid (Folic Acid) 1 mg PO DAILY [facility] Stop: 10/08/17 09:01 Last Admin: 04/08/17 08:14 Dose: 1 mg Sodium Chloride (0.9 % Sodium Chloride) 1,000 mls @ 100 mls/hr IVC .Q10H [facility] Stop: 10/07/17 22:31 Last Admin: 04/07/17 23:34 Dose: 100 mls/hr Insulin Detemir (Levemir) 20 unit SQ HS [facility] Stop: 10/08/17 21:01 Insulin Human Lispro (Humalog) 0 units SQ TIDAC [facility] PRN Reason: Protocol Stop: 10/08/17 07:31 Lamotrigine (Lamictal) 100 mg PO HS [facility] Stop: 10/08/17 21:01 Levothyroxine Sodium (Synthroid) 25 mcg PO QAM [facility] Stop: 10/08/17 09:01 Last Admin: 04/08/17 08:14 Dose: 25 mcg Nitroglycerin (Nitroglycerin) 0.4 mg SL Q5MIN PRN PRN Reason: Chest Pain Stop: 10/07/17 18:28 Last Admin: 04/07/17 19:31 Dose: 0.4 mg Simvastatin (Zocor) 20 mg PO HS [facility] Stop: 10/08/17 21:01 Topiramate (Topamax) 50 mg PO BID [facility] Stop: 10/08/17 09:01 Last Admin: 04/08/17 08:14 Dose: 50 mg - Imaging and Cardiology Stress Test: report reviewed Echo: report reviewed Cardiac cath: report reviewed - EKG Interpretation EKG results cardiology: personally reviewed, normal ECG, sinus rhythm, no diagnostic ischemia, other (24-hour tele reviewed: avg heart rate 81, lowest heart rate 64, sinus rhythm, no significant events noted) Consult Discharge Plan - Plan Referrals: Gonzalo Jones, [Primary Care Provider] - <Brady Fernández Liudmila - Last Filed: 04/08/17 16:59> Date of Encounter: 04/08/17 Assessment and Plan Discussion w patient/family: The assessment and plan as outlined above was discussed with the patient and/or family members who expressed understanding and agreement. All questions were answered. Thank you for involving us in the care of your patient. Please call with any questions. History of Present Illness History of present illness: Ms. Maldonado is a 51 year old female All Systems Review: A 10-system review of systems was performed and is negative for pertinent findings except as documented above in the HPI. Physical Examination Vital Signs, Last 4 Hours Temp Pulse Pulse Pulse Pulse Resp BP 04/08/17 15:49 74 80 81 04/08/17 14:48 97.8 F 81 18 143/83 BP BP BP Pulse Ox 04/08/17 15:49 146/87 127/79 129/81 04/08/17 14:48 95 Results 04/08/17 01:06 04/08/17 01:06 Lab Results 04/07/17 04/08/17 04/08/17 22:49 01:06 01:06 WBC 4.9 Hgb 11.3 L Hct 35.0 L Plt Count 209 D D-Dimer 508 H Sodium 142 Potassium 3.7 Chloride 112 H Carbon Dioxide 21 BUN 18 Creatinine 1.13 H Glucose 232 H Calcium 8.6 Magnesium 1.8 Troponin I 04/08/17 04/08/17 01:06 06:32 WBC Hgb Hct Plt Count D-Dimer Sodium Potassium Chloride Carbon Dioxide BUN Creatinine Glucose Calcium Magnesium Troponin I 0.00 0.02 - Attending Attestation PT seen and examined, chart reviewed independently, essentially agree with findings documented, my evaluation as follows: IMP/Plan 1. Syncope: Pt had several syncopal events after changing position from lying to standing on way to restroom. Orthostatics positive for 26 mm drop in systolic pressure lying to standing, mildly symptomatic. Suspect orthostatic hypotension etiology of syncopal events. Symptoms have resolved over the course of testing today. Long conversation with pt and about increasing fluid intake, monitoring daily weights, suggested compression stockings, pt declines. Will monitor symptoms closely with postional changed. 2. CAD - stable class 1 angina, negative stress imaging 2016, has ruled out for acute myocardial necrosis by EKG and enzematic criteria. 3. BEH: contolled on current medication 4. GERD - well controlled on current PPI 5. Hyperlipidemia, reports is at goal on current meds.
--- NOTE | 2017-04-08 11:38 | Internal Med Progress Note ---
Date of Encounter: 04/08/17 Time of Encounter: 11:22 - Assessment and plan (1) CAD (coronary artery disease) Current Visit: No Status: Chronic Assessment and plan: Jose Antonio Maldonado is a 51 y/o female with PMH CAD, HTN, diabetes and hx syncope secondary to tachycardia who presented to [facility] 04/07/2017 with complaints of syncope and chest pain. She was placed in observation status for Cardiology evaluation and further work-up of syncope. CAD: with stenting in 2012; most recent [facility] 03/2016 showed mid LAD 40%, patent stent . Outpatient nuclear stress test 04/05/2017 negative. Presented with chest pain that occurred after sexual intercourse. ASA given in ED. Has been off antiplatelets for 6 months (had hernia repair and nerve stimulator placed and did not know to restart ASA, plavix). Serial troponins negative. EKG without acute ST changes. Cont home ASA, statin. Cardiology consulted. Qualifiers: Coronary Disease-Associated Artery/Lesion type: [place] artery [place] vs. transplanted heart: [place] heart Associated angina: with unstable angina Qualified Code(s): I25.110 - Atherosclerotic heart disease of [place] coronary artery with unstable angina pectoris (2) Syncope Current Visit: Yes Status: Acute Assessment and plan: presented with 3 syncopal episodes with witnessed + LOC on day of presentation. Hx similar sx;s in 1995, had + tilt table test at [facility] at that time. Was placed on BB with no sx recurrence until now. Head CT negative. Etiology unknown at this time. Echo, carotids, EEG, V/Q scan pending. Cont home BB Qualifiers: Syncope type: unspecified Qualified Code(s): R55 - Syncope and collapse (3) CKD (chronic kidney disease) stage 3, GFR 30-59 ml/min Current Visit: No Status: Chronic Assessment and plan: per hx. Cr 1.13 which appears at baseline. Avoid nephrotoxic agents. Intermittently monitor (4) Diabetes Current Visit: No Status: Acute Assessment and plan: per hx. Hgb A1c 7.4. Cont home long-acting. Add SSI. Monitor blood sugars and titrate PRN Qualifiers: Diabetes mellitus type: type 2 Diabetes mellitus complication status: with circulatory complication Diabetes mellitus complication detail: with other circulatory complications Diabetes mellitus skilled nursing insulin use: with skilled nursing use Qualified Code(s): E11.59 - Type 2 diabetes mellitus with other circulatory complications; Z79.4 - detention (current) use of insulin (5) DVT prophylaxis Current Visit: No Status: Acute Assessment and plan: heparin - Time Spent With Patient less than 15 minutes - Subjective Interval history: Seen and examined at bedside, says she feels better, no chest pain, no SOB. Still with some lightheadedness and dizziness with standing. - Constitutional Vitals: Temp Pulse Resp BP Pulse Ox 97.6 F 72 16 152/85 99 04/08/17 10:48 04/08/17 10:48 04/08/17 10:48 04/08/17 10:48 04/08/17 10:48 General appearance: Present: A&O X 3, morbidly obese - Head Head exam: Present: atraumatic, normocephalic - Eye Eye exam: Present: PERRL, conjuntiva pink, sclera anicteric Pupils: Present: PERRL - Neck Neck exam general surgery: Present: supple, trachea midline. Absent: lymphadenopathy - Respiratory Respiratory exam: Present: CTAB. Absent: accessory muscle use, rales, rhonchi, wheezes - Cardiovascular Cardiovascular exam: Present: RRR, +S1, +S2. Absent: diastolic murmur, gallop, rubs, systolic murmur - GI/Abdominal GI/Abdominal exam: Present: normal bowel sounds, soft, no peritoneal signs. Absent: distended, tenderness - Extremities Exam Extremities exam: Present: warm, radial pulses palpable and symmetrical. Absent : calf tenderness, cyanotic, pedal edema - Neurological Exam Neurological exam: Present: CN II-XII intact, oriented X3, no focal deficits. Absent: pronater drift, facial droop, speech deficit - Skin Skin exam: Present: dry, intact Internal Medicine: Result - Labs CBC & Chem 7: 04/08/17 01:06 04/08/17 01:06 Labs: Short CBC 04/08/17 Range/Units 01:06 WBC 4.9 (4.3-11.1) K/mcL Hgb 11.3 L (11.5-15.4) g/dL Hct 35.0 L (35.3-44.9) % Plt Count 209 D (140-400) K/mcL Neutrophils # 1.7 (1.6-8.9) K/mcL BMP 04/08/17 01:06 Sodium 142 Potassium 3.7 Chloride 112 H Carbon Dioxide 21 BUN 18 Creatinine 1.13 H Glucose 232 H Calcium 8.6 Cardiac Enzymes 04/08/17 04/08/17 Range/Units 01:06 06:32 Troponin I 0.00 0.02 (0-0.03) ng/mL - ABG Interpretation ABG results: PT/INR, D-dimer PT 10.4 Seconds (9.4-12.1) 04/07/17 18:59 D-Dimer 508 ng/mLFEU (0-500) H 04/07/17 22:49 Consult Discharge Plan - Plan Referrals: Gonzalo Jones DO [Primary Care Provider] -
[2017-04-08] MEDS ORDERED: Lidocaine -MPF 1% 2 ML VIAL ID PRN (12:08)
--- NOTE | 2017-04-08 14:57 | Carotid Imaging Report ---
Carotid Duplex Patient Name:Jose Antonio Maldonado Order Number:[id number] Procedure Date:04/08/2017 Date:1965Age:51 yrs Gender:Female Location:[facility] Room #: 3B37 Jazz Musician:Lily Whiting Referring MD:Brett Reich MD Reading MD:Jaret Foster MD , [facility] Risk Factors Yes/No Hypertension Yes Diabetes Yes Hypercholesterolemia Yes Smoking Current No Hx of TIA Yes Hx of CVA Yes Impressions: Findings: Bilateral carotid systems essentially normal. Findings Carotid Duplex: Right: The right proximal common carotid artery has a PSV of 60 cm/s and a EDV of 16 cm/s. The right mid common carotid artery has a PSV of 53 cm/s and a EDV of 20 cm/s. The right distal common carotid artery has a PSV of 54 cm/s and a EDV of 19 cm/s. The right bifurcation has a PSV of 52 cm/s and a EDV of 20 cm/s. The right proximal internal carotid artery has a PSV of 65 cm/s and a EDV of 18 cm/s. The right mid internal carotid artery has a PSV of 68 cm/s and a EDV of 27 cm/s. The right distal internal carotid artery has a PSV of 68 cm/s and a EDV of 27 cm/s. The right eca has a PSV of 59 cm/s and a EDV of 12 cm/s. The right vertebral artery has a PSV of 39 cm/s and a EDV of 15 cm/s. Left: The left proximal common carotid artery has a PSV of 56 cm/s and a EDV of 18 cm/s. The left mid common carotid artery has a PSV of 76 cm/s and a EDV of 30 cm/s. The left distal common carotid artery has a PSV of 68 cm/s and a EDV of 25 cm/s. The left bifurcation has a PSV of 70 cm/s and a EDV of 27 cm/s. The left proximal internal carotid artery has a PSV of 73 cm/s and a EDV of 30 cm/s. The left mid internal carotid artery has a PSV of 83 cm/s and a EDV of 32 cm/s. The left distal internal carotid artery has a PSV of 85 cm/s and a EDV of 39 cm/s. The left eca has a PSV of 64 cm/s and a EDV of 15 cm/s. The left vertebral artery has a PSV of 35 cm/s and a EDV of 13 cm/s. Carotid Results Right PSV EDV Assessment Proximal CCA 60 16 Normal Mid CCA 53 20 Normal Distal CCA 54 19 Normal Bifurcation 52 20 Normal Proximal ICA 65 18 Normal Mid ICA 68 27 Normal Distal ICA 68 27 Normal ECA 59 12 Normal Vertebral Artery 39 15 Normal Left PSV EDV Assessment Proximal CCA 56 18 Normal Mid CCA 76 30 Normal Distal CCA 68 25 Normal Bifurcation 70 27 Normal Proximal ICA 73 30 Normal Mid ICA 83 32 Normal Distal ICA 85 39 Normal ECA 64 15 Normal Vertebral Artery 35 13 Normal Ratio's Right ICA/CCA Ratio: 1.30 ICA/CCA Values: 68/53 Left ICA/CCA Ratio: 1.12 ICA/CCA Values: 85/76 Updated by Jaret Foster MD, FACS on 04/08/2017 2:50:59 PM Jaret Foster MD electronically signed on 04/08/2017 2:51:53 PM with status of Final
--- NOTE | 2017-04-08 15:10 | EEG/EMG/Oth Biometrics Report ---
EEG Procedure Report Date of procedure: 04/08/17 EEG Procedure: Routine EEG Procedure Note: This is a report of a 21 channel bipolar and referential montage EEG. Posterior dominant rhythm of 8 Hz moderate voltage alpha frequencies at an apartment symmetrically in the posterior head regions. This rhythm attenuates symmetrically to eye opening. Hyperventilation is not performed any recording. Periods of drowsiness and stage II sleep were identified as reference by dropout of the posterior dominant rhythm and emergence of vertex activity K complexes and spindles. Photic stimulation is performed and produces a symmetric driving response. The EKG rhythm strip reveals normal sinus rhythm at 66 bpm. Impressions: This EEG recording is within normal limits. There is no evidence of epileptiform activity identified during the study. Comment: A normal EEG does not preclude a diagnosis of seizure or epilepsy. If the clinical suspicion for seizure activity is high, serial EEGs perhaps a prolonged recording may increase the yield. Please correlate clinically.
--- NOTE | 2017-04-08 15:31 | Event Note ---
Date of Encounter: 04/08/17 Time of Encounter: 15:30 - Cardiology Event Note Carotid duplex noted to show bilateral normal findings. EEG results noted-- Impressions: This EEG recording is within normal limits. There is no evidence of epileptiform activity identified during the study. VQ scan low probability for PE. Recommend obtain orthostatics as ordered and record.
[2017-04-08] MEDS: *HR* Heparin 5,000 UNIT/ML VIAL SQ SCH ×2 (15:56→21:47)
[2017-04-08] MEDS: 0.9 % Sodium Chloride 1,000 ML IVC SCH (15:56)
--- NOTE | 2017-04-08 17:28 | Event Note ---
Date of Encounter: 04/08/17 Time of Encounter: 17:27 She was evaluated by cardiology and cardiac etiology ruled out. She does have history of CVA and has been off antiplatelets for approximately 6 months. Obtain brain MRI to rule out acute infarct. Neurology consulted as well
--- NOTE | 2017-04-08 17:56 | Neurology - Consult Note ---
Date of Encounter: 04/08/17 Time of Encounter: 17:52 Assessment and Plan (1) Spell of altered consciousness Current Visit: Yes Status: Acute Patient has experienced apparently a few episodes of altered consciousness of unknown etiology. Not certain however whether or not she completely lost consciousness. The differential diagnosis in this instance I believe would include syncope, versus a nonepileptic seizure. Certainly does not seem to be consistent with a tonic-clonic or partial seizure. Apparently she was not hypoglycemic. There is no trauma involved. She states that she was not particularly winded however one might expect that after intercourse she might at least be tachycardic. Perhaps this was simply a hyperventilation type syndrome. In regard I will obtain a CTA of the head and neck. She cannot have an MRI because she has a spinal stimulator. We will rule out a tortuous basilar artery. She is on telemetry hopefully if she has any arrhythmias we might be able to identify this. Ultimately if these events persist perhaps a loop recorder might be considered. (2) Syncope Current Visit: Yes Status: Acute Qualifiers: Syncope type: unspecified Qualified Code(s): R55 - Syncope and collapse History of Present Illness HPI: Ms. Maldonado is a 51 year old female who is being seen for neurologic consultation secondary to syncope. She states that she passed out the first time on Wednesday night which was 2 nights ago. This occurred at about 9:30 in the evening. She states that she had a normal day all day long that day. She states that the episode of syncope occurred right after she has been at intercourse. She states that afterwards she sat up at the side of the bed". She was rocking back and forth" she denied any nausea denied any diaphoresis denied chest pain or palpitations or headache. She denied extreme exertion. She states that she was unconscious for roughly 1 minute. Then her was able to arouse her and apparently she fell unconscious again for about a minute. He checked her blood sugar after the second time she lost consciousness apparently was normal. Then she arouse and passed out a third time for about a minute. No seizure activity was witnessed. He did manage to check her vital signs and her blood pressure was 157/78, heart rate was 80. She states that prior to the episode she had a slight headache however is nothing intense. She states that she still feels woozy and has felt like this all day. She denies any new stressors. She is however on Lexapro for depression, she is on Topamax for migraine headaches. She does have a history of psychogenic nonepileptic seizures. I did read an EEG recorded on her earlier today and it was normal. Past Med Surg Social Fam HX - Past Medical History Medical history: arthritis, asthma, coronary artery disease, diabetes, fibromyalgia, GERD, hyperlipidemia, hypertension, migraine, thyroid disease, valvular heart disease, other Psychiatric history: anxiety, depression - Past Surgical History Surgical History: angioplasty/stent, breast surgery, cholecystectomy, herniorrhaphy, hip replacement, hysterectomy, orthopedic, other, pacemaker/AICD - Social History Smoking Status: Never smoker Smokeless Tobacco Status: No Alcohol use: none Drug use: none - Family History Mother Living Status: Age at : 79 Cause of : COPD Hx Family Cardiac Disorders: Yes (HTN, CHF) Hx Family Respiratory Disorders: Yes (copd) Hx Family Cancer: Yes (leukemia) Hx Family GI Disorders: No Hx Family Genitourinary Disorders: No Hx Family Endocrine Disorder: Yes (dm) Hx Family Musculoskeletal Disorders: No Hx Family Neuromuscular Disorders: No Hx Family Neurologic Disorders: No Hx Family HEENT Disorders: No Hx Family Autoimmune Disorders: No Hx Family Reproductive Disorders: No Hx Family Psychosocial Disorders: No Hx Family Medical Disorders: No Father Living Status: Still Living Hx Family Cardiac Disorders: Yes (HTN) Hx Family Respiratory Disorders: Yes (copd, emphysema) Hx Family Cancer: Yes (prostate cancer) Hx Family GI Disorders: No Hx Family Genitourinary Disorders: No Hx Family Endocrine Disorder: No Hx Family Musculoskeletal Disorders: No Hx Family Neuromuscular Disorders: No Hx Family Neurologic Disorders: No Hx Family HEENT Disorders: No Hx Family Autoimmune Disorders: No Hx Family Reproductive Disorders: No Hx Family Psychosocial Disorders: No Hx Family Medical Disorders: No Medications and Allergies Atenolol [Tenormin] 25 mg PO DAILY 04/23/15 [History] Escitalopram [Lexapro] 20 mg PO HS 04/23/15 [History] Fenofibrate [Tricor] 54 mg PO BID 04/23/15 [History] Insulin Glargine,Hum.rec.anlog [Lantus Solostar] 30 unit SQ HS 04/23/15 [History ] Lamotrigine [Lamictal] 100 mg PO HS 04/23/15 [History] Levothyroxine [Synthroid] 25 mcg PO QAM 04/23/15 [History] Liraglutide [Victoza 2-Aravind] 1.8 mg SQ DAILY 04/23/15 [History] Loxapine Succinate [Loxapine] 10 mg PO HS 04/23/15 [History] Pravastatin Sodium [Pravachol] 40 mg PO HS 04/23/15 [History] Topiramate [Topamax] 50 mg PO BID 04/23/15 [History] Trospium Chloride 20 mg PO HS 04/23/15 [History] Aspirin 81 mg PO DAILY 01/06/16 [History] Benztropine [Cogentin] 0.5 mg PO BID 01/06/16 [History] Insulin ASPART [Novolog Flexpen] 5 unit SQ TIDWM 01/06/16 [History] Etanercept [Enbrel] 50 mg SQ MO 03/08/16 [History] Folic Acid 1 mg PO DAILY 03/08/16 [History] Pioglitazone [Actos] 30 mg PO DAILY 07/06/16 [History] Famotidine [Pepcid] 40 mg PO BID 10/14/16 [History] LORazepam [Ativan] 0.5 mg PO DAILY PRN 10/14/16 [History] Loratadine [Claritin] 10 mg PO DAILY 10/14/16 [History] Meclizine HCl [Verticalm] 25 mg PO BID PRN 10/14/16 [History] Montelukast [Singulair] 10 mg PO QPM 10/14/16 [History] Multivitamin [Multi-Day Vitamins] 1 each PO DAILY 10/14/16 [History] Nitroglycerin [Nitrostat] 0.4 mg SL Q5M PRN 10/14/16 [History] SUMAtriptan succinate [Imitrex] 50 mg PO DAILY PRN MDD 100 mg 10/14/16 [History] Cholecalciferol (Vitamin D3) [Vitamin D3] 4,000 unit PO DAILY 12/25/16 [History] Methotrexate [Otrexup] 15 mg PO TH 12/25/16 [History] Promethazine HCl 12.5 mg PO Q4-6H PRN 12/25/16 [History] Amitriptyline [Elavil] 25 mg PO HS 04/07/17 [History] Meloxicam [Meloxicam] 15 mg PO DAILY 04/07/17 [History] Orphenadrine Citrate 100 mg PO HS 04/07/17 [History] SUMAtriptan succinate [Imitrex] 6 mg SQ DAILY PRN 04/07/17 [History] 3 Allergy/AdvReac Type Severity Reaction Status Date / Time adenosine [From Adenocard] AdvReac Hypertensio Verified 03/22/17 12:35 n azithromycin AdvReac Nausea, Verified 03/22/17 12:35 rash diazepam AdvReac See Verified 03/22/17 12:35 Comments diltiazem AdvReac See Verified 03/22/17 12:35 Comments duloxetine [From Cymbalta] AdvReac See Verified 03/22/17 12:35 Comments Erythromycin Base AdvReac See Verified 03/22/17 12:35 [From Rolando-Tab] Comments metformin AdvReac flu like Verified 03/22/17 12:35 symptoms sertraline [From Zoloft] AdvReac "makes me Verified 03/22/17 12:35 cry" Verapamil AdvReac Hypertensio Verified 03/22/17 12:35 n All Systems: A 10-system review of systems was performed and is negative for pertinent findings except as documented above in the HPI. Review of Systems: 10 point review of systems is consistent with a history of present illness and otherwise negative. Physical Examination - Vital Signs Vital Signs: Initial Vital Signs Temp Pulse Resp BP Pulse Ox 97.4 F L 83 18 152/104 100 04/07/17 17:59 04/07/17 17:59 04/07/17 17:59 04/07/17 17:59 04/07/17 17:59 - Neurologic Detailed motor examination: full strength in all major muscle groups Motor examination - right side: 55: deltoids, biceps, triceps, wrist flexion, wrist extension, senior software tester, hip flexors, tibialis Anterior, quadriceps, toe extension (EHL), plantarflexion Motor examination - left side: 5/5: deltoids, biceps, triceps, wrist flexion, wrist extension, hip flexors, senior software tester, quadriceps, tibialis Anterior, toe extension (EHL), plantarflexion Mental Status Examination: awake, alert, oriented to person, oriented to place, oriented to time, follows commands appropriately, answers questions appropriately, no agnosia, no aphasia, no aproxia Cranial nerve examination: PERRL, EOMI, visual cordoba intact, corneal reflexes brisk symmetrically, sensory to face intact, mastication intact, no facial asymmetry is present, no dysarthria, hearing is intact symmetrically, soft palate elevates bilaterally upon phonation, gag reflex intact, flexes SCM and trapezius muscles symmetrically with full power, tongue protrudes midline, no atrophy or facial fasiculations present Cerebellar examination: no dysmetria, performs finger to nose and heel to gama symmetrically without ataxia, no gait ataxia, no truncal ataxia, no difficulty with rapid alternating movements Results - Laboratory Findings CBC and BMP: 04/08/17 01:06 04/08/17 01:06 Abnormal lab findings: Abnormal lab results RBC 3.68 M/mcL (3.82-4.97) L 04/08/17 01:06 Hgb 11.3 g/dL (11.5-15.4) L 04/08/17 01:06 Hct 35.0 % (35.3-44.9) L 04/08/17 01:06 Clumped Platelets Few (Not Present) A 04/07/17 18:59 D-Dimer 508 ng/mLFEU (0-500) H 04/07/17 22:49 Chloride 112 mEq/L (98-109) H 04/08/17 01:06 Creatinine 1.13 mg/dL (0.57-1.11) H 04/08/17 01:06 Est GFR (Non-Af Amer) 51 (> 60) L 04/08/17 01:06 Glucose 232 mg/dL (70-99) H 04/08/17 01:06 POC Glucose 156 (58-89) H 04/08/17 14:52 Hemoglobin A1c 7.4 % (-5.6) H 04/08/17 01:06 Calculated Osmolality 303 (280-300) H 04/08/17 01:06 Urine Glucose (UA) 100 mg/dL (Normal) H 04/07/17 19:45 Consult Discharge Plan - Plan Referrals: Gonzalo Jones DO [Primary Care Provider] -
--- NOTE | 2017-04-08 19:41 | Electrocardiograph Report ---
[place] [id number] Test Date: 2017-04-07 Pat Name: Jose Antonio Maldonado Department: 103 Room: 3B Gender: F Disbursing Officer: MSC : 1965 Requested By: Jefferson Louie Order Number: [id number] Reading MD: Fili Moran MD Measurements Intervals [place] Rate: 80 P: 33 RI: 189 QRS: 30 QRSD: 89 T: 44 QT: 385 QTc: 421 Interpretive Statements SINUS RHYTHM BASELINE ARTIFACT Electronically Signed On 04-08-2017 19:40:19 EDT by Fili Moran MD
[2017-04-08] MEDS ORDERED: lamoTRIgine 100 MG TABLET PO SCH (21:00)
[2017-04-08] MEDS ORDERED: Insulin DETEMIR 100 UNIT/ML X5UNITS SQ SCH (21:00)
[2017-04-09 04:35] LABS: Hematocrit 34.5 % (35.3-44.9); Hemoglobin 11.2 g/dL (11.5-15.4); Mean Corpuscular HGB Conc 32.5 g/dL (31.6-35.5); Mean Corpuscular Volume 95.6 fL (83.0-100.0); Mean Platelet Volume 10.4 fL (9.4-12.4); Platelet Count 206 K/mcL (140-400); Red Blood Count 3.61 M/mcL (3.82-4.97); Red Cell Distribution Width 14.1 % (11.5-14.5)
[2017-04-09 04:51] LABS: Alanine Aminotransferase 22 Units/L (0-55); Albumin 3.1 g/dL (3.5-5.0); Albumin/Globulin Ratio 1.1 (1.1-2.2); Alkaline Phosphatase 74 Units/L (38-126); Aspartate Amino Transferase 14 Units/L (5-34); BUN/Creatinine Ratio 18 (6-26); Bilirubin,Total 0.2 mg/dL (0.2-1.2); Blood Urea Nitrogen 16 mg/dL (7-20); Calcium 8.6 mg/dL (8.6-10.8); Carbon Dioxide 19 mEq/L (19-29); Chloride 113 mEq/L (98-109); Globulin 2.8 g/dL (2.4-3.5); Glucose 111 mg/dL (70-99); Osmolality,Calculated 292 (280-300); Potassium 3.5 mEq/L (3.5-4.5); Sodium 140 mEq/L (136-145); Total Protein 5.9 g/dL (6.0-8.3); eGFR For African Americans > 60 (> 60); eGFR For Non-African Americans > 60 (> 60)
[2017-04-09] MEDS: 0.9 % Sodium Chloride 1,000 ML IVC SCH (05:13)
[2017-04-09] MEDS: *HR* Heparin 5,000 UNIT/ML VIAL SQ SCH (05:14)
[2017-04-09] MEDS: Insulin LISPRO 300 UNITS/3 ML VIAL SQ SCH (08:36)
[2017-04-09] MEDS: Folic Acid 1 MG TABLET PO SCH (08:42)
[2017-04-09] MEDS: Levothyroxine 25 MCG TABLET PO SCH (08:42)
[2017-04-09] MEDS: Topiramate 25 MG TABLET PO SCH (08:42)
[2017-04-09] MEDS: Famotidine 20 MG TABLET PO SCH (08:42)
[2017-04-09] MEDS: Aspirin 81 MG TAB.CHEW PO SCH (08:42)
[2017-04-09] MEDS: Fenofibrate 54 MG TABLET PO SCH (08:42)
[2017-04-09 11:30] VITALS: BP 132/84
--- NOTE | 2017-04-09 11:52 | Internal Med Progress Note ---
Date of Encounter: 04/09/17 Time of Encounter: 11:48 - Constitutional Vitals: Temp Pulse Resp BP Pulse Ox 98.1 F 81 14 132/84 96 04/09/17 11:04/09/17 11:29 04/09/17 11:29 04/09/17 11:04/09/17 11:29 General appearance: Present: A&O X 3, morbidly obese Internal Medicine: Result - Labs CBC & Chem 7: 04/09/17 03:43 04/09/17 03:43 Labs: Short CBC 04/09/17 Range/Units 03:43 WBC 4.6 (4.3-11.1) K/mcL Hgb 11.2 L (11.5-15.4) g/dL Hct 34.5 L (35.3-44.9) % Plt Count 206 (140-400) K/mcL BMP 04/09/17 03:43 Sodium 140 Potassium 3.5 Chloride 113 H Carbon Dioxide 19 BUN 16 Creatinine 0.88 Glucose 111 H Calcium 8.6 Liver Function 04/09/17 Range/Units 03:43 Total Bilirubin 0.2 (0.2-1.2) mg/dL AST 14 (5-34) Units/L ALT 22 (0-55) Units/L Alkaline Phosphatase 74 (38-126) Units/L Albumin 3.1 L (3.5-5.0) g/dL - ABG Interpretation ABG results: PT/INR, D-dimer PT 10.4 Seconds (9.4-12.1) 04/07/17 18:59 D-Dimer 508 ng/mLFEU (0-500) H 04/07/17 22:49 - Impressions Impressions Neck CTA 04/08/17 18:03 IMPRESSION: No flow limiting stenosis or branch occlusion identified within the neck. D/ / Frank Lopez MD / Frank Lopez MD Interpreting Provider: Frank Lopez MD Consult Discharge Plan - Plan Referrals: Gonzalo Jones DO [Primary Care Provider] -
--- NOTE | 2017-04-09 11:56 | Discharge Summary ---
<Vita Damon H - Last Filed: 04/09/17 13:50> Date of Encounter: 04/09/17 Time of Encounter: 10:45 - Discharge Diagnosis (1) Spell of altered consciousness Priority: Primary Status: Acute (2) Diabetes Priority: Secondary Status: Acute Qualifiers: Diabetes mellitus type: type 2 Diabetes mellitus complication status: with circulatory complication Diabetes mellitus complication detail: with other circulatory complications Diabetes mellitus supervisor intermediates insulin use: with supervisor intermediates use Qualified Code(s): E11.59 - Type 2 diabetes mellitus with other circulatory complications; Z79.4 - [facility] (current) use of insulin (3) CAD (coronary artery disease) Priority: Secondary Status: Chronic Qualifiers: Coronary Disease-Associated Artery/Lesion type: ute artery [place] vs. transplanted heart: ute heart Associated angina: with unstable angina Qualified Code(s): I25.110 - Atherosclerotic heart disease of ute coronary artery with unstable angina pectoris (4) GERD (gastroesophageal reflux disease) Priority: Secondary Status: Acute Qualifiers: Esophagitis presence: without esophagitis Qualified Code(s): K21.9 - Gastro -esophageal reflux disease without esophagitis (5) CKD (chronic kidney disease) stage 3, GFR 30-59 ml/min Priority: Secondary Status: Chronic (6) DVT prophylaxis Priority: Secondary Status: Acute - Discharge Medications Prescriptions: Amitriptyline [Elavil] 10 mg PO HS #5 tablet Home Medications: Atenolol [Tenormin] 25 mg PO DAILY 04/23/15 [History] Escitalopram [Lexapro] 20 mg PO HS 04/23/15 [History] Fenofibrate [Tricor] 54 mg PO BID 04/23/15 [History] Insulin Glargine,Hum.rec.anlog [Lantus Solostar] 30 unit SQ HS 04/23/15 [History ] Lamotrigine [Lamictal] 100 mg PO HS 04/23/15 [History] Levothyroxine [Synthroid] 25 mcg PO QAM 04/23/15 [History] Liraglutide [Victoza 2-Aravind] 1.8 mg SQ DAILY 04/23/15 [History] Loxapine Succinate [Loxapine] 10 mg PO HS 04/23/15 [History] Pravastatin Sodium [Pravachol] 40 mg PO HS 04/23/15 [History] Topiramate [Topamax] 50 mg PO BID 04/23/15 [History] Trospium Chloride 20 mg PO HS 04/23/15 [History] Aspirin 81 mg PO DAILY 01/06/16 [History] Benztropine [Cogentin] 0.5 mg PO BID 01/06/16 [History] Insulin ASPART [Novolog Flexpen] 5 unit SQ TIDWM 01/06/16 [History] Etanercept [Enbrel] 50 mg SQ MO 03/08/16 [History] Folic Acid 1 mg PO DAILY 03/08/16 [History] Pioglitazone [Actos] 30 mg PO DAILY 07/06/16 [History] Famotidine [Pepcid] 40 mg PO BID 10/14/16 [History] LORazepam [Ativan] 0.5 mg PO DAILY PRN 10/14/16 [History] Loratadine [Claritin] 10 mg PO DAILY 10/14/16 [History] Meclizine HCl [Verticalm] 25 mg PO BID PRN 10/14/16 [History] Montelukast [Singulair] 10 mg PO QPM 10/14/16 [History] Multivitamin [Multi-Day Vitamins] 1 each PO DAILY 10/14/16 [History] Nitroglycerin [Nitrostat] 0.4 mg SL Q5M PRN 10/14/16 [History] SUMAtriptan succinate [Imitrex] 50 mg PO DAILY PRN MDD 100 mg 10/14/16 [History] Cholecalciferol (Vitamin D3) [Vitamin D3] 4,000 unit PO DAILY 12/25/16 [History] Methotrexate [Otrexup] 15 mg PO TH 12/25/16 [History] Promethazine HCl 12.5 mg PO Q4-6H PRN 12/25/16 [History] Meloxicam 15 mg PO DAILY 04/07/17 [History] Orphenadrine Citrate 100 mg PO HS 04/07/17 [History] SUMAtriptan succinate [Imitrex] 6 mg SQ DAILY PRN 04/07/17 [History] Amitriptyline [Elavil] 10 mg PO HS #5 tablet 04/09/17 [Rx] Allergies/Adverse Reactions: 3 Allergy/AdvReac Type Severity Reaction Status Date / Time adenosine [From Adenocard] AdvReac Hypertensio Verified 03/22/17 12:35 n azithromycin AdvReac Nausea, Verified 03/22/17 12:35 rash diazepam AdvReac See Verified 03/22/17 12:35 Comments diltiazem AdvReac See Verified 03/22/17 12:35 Comments duloxetine [From Cymbalta] AdvReac See Verified 03/22/17 12:35 Comments Erythromycin Base AdvReac See Verified 03/22/17 12:35 [From Rolando-Tab] Comments metformin AdvReac flu like Verified 03/22/17 12:35 symptoms sertraline [From Zoloft] AdvReac "makes me Verified 03/22/17 12:35 cry" Verapamil AdvReac Hypertensio Verified 03/22/17 12:35 n Procedures/tests Complete & Pending: Procedures Performed prior 72 hours Category Date Time Status CT angio neck [CT] Routine Cat Scan 04/08/17 18:03 Completed NM pul vent and perfuse [NM] Routine Exams 04/08/17 10:50 Completed EV carotid duplex imaging BI Routine Y 04/08/17 22:21 Completed EV echocardiogram Routine Y 04/08/17 01:04 Completed Date of admission: 04/07/17 21:19 Primary care physician: Gonzalo Jones DO Consults: 04/07/17 22:21 Consult to Cardiology [CONS] Routine Comment: Consulting Provider: Cardiology [facility] Reason for Consult: chest pain and syncopal episodes Call Completed: No 04/08/17 00:54 Consult to Occupational Therapy [CONS] Routine Comment: Evaluate, develop and implement POC Reason for Consult: weakness Consult to Physical Therapy [CONS] Routine Comment: Evaluate, develop and implement POC Reason for Consult: weakness 04/08/17 12:08 Consult to Invasive Line Access Team [CONS] Routine Reason for Consult: limited vascular access. Curent IV was in axilary area. Line Type: EPIV PICC line indications: Limited vascular access 04/08/17 13:10 Consult to Interpret Exam [CONS] Routine Consulting Provider: Raheem Desir Consult to Interpret Exam: Interpret EEG 04/08/17 17:24 Consult to Neurology [CONS] Routine Consulting Provider: Neurology [facility] Reason for Consult: Syncope with + LOC Call Completed: Yes - Patient Status Disposition: Home, Self-Care Condition: Good Functional capacity at discharge: independent ambulation Overall status at discharge: patient is back to baseline - Discharge Instructions Instructions: Amitriptyline (By mouth) Follow Up With: Gonzalo Jones DO [Primary Care Provider] - 04/14/17 11:30 am Additional Instructions: Please follow-up with your primary care provider in the next week about a Holter monitor. We have decreased your Elavil from 25 mg daily 10 mg daily. After you finish the five-day course of this new lowered dose, you may discontinue this medication. If you have any symptoms, please see your primary care provider. If you develop any recurrence of lightheadedness or dizziness, chest pain or shortness of breath, nausea or vomiting, please return to the emergency department. - Diet and Activity Activity: resume usual activities as tolerated Diet: low fat, low cholesterol Hospital course: Ms. Maldonado is a 51 year old female with past medical history of coronary artery disease, hypertension, diabetes, depression, psychogenic nonepileptic seizures, migraine, and history of syncopal episodes. She presented to the emergency department 2 days ago after having 3 syncopal episodes directly after intercourse. She described these syncopal episodes as less than a minute in time. She does state she lost consciousness, and that her was there to catch her in the bed. Shortly after her syncopal episode, she did describe chest pain which she claimed was crushing and pressure-like and radiated into her back as well as up to the left side of her jaw. In the emergency department , she had a negative cardiac workup including ECG evaluation, chest x-ray, and troponins. Patient's most recent echocardiogram shows no significant findings and an ejection fraction of 60%. Cardiology evaluated the patient and thought her symptoms appear to be vasovagal in nature as they occurred with positional changes after sexual intercourse. There have been no events on telemetry during this hospitalization. Patient had an outpatient stress test on the Wednesday prior to admission which was normal. Patient does have a remote history of CVA, however, she discontinued use of her plavix and ASA 6 months ago as she had back surgery. She never resumed these medications as she is preparing for gastric bypass surgery and possible right hip replacement. As such, neurology was consulted about her apparent syncopal episodes. As patient was not hypoglycemic, there was no trauma involved, and she did not experience any tachycardic after her intercourse, they deduced that it could have perhaps been caused by a hyperventilation type syndrome. They ordered a CTA of the head and neck as patient could not have an MRI due to a spinal stimulator. They aim to rule out a tortuous basilar artery which was ruled out by CT of the neck. As the patient's extensive workup was essentially negative, after discussions with the patient, she made it perfectly clear that she would like to be discharged home. She desired to follow-up with her primary care provider regarding the use of a Holter monitor. We reviewed her medications extensively, and found that perhaps her amitriptyline could be contributing to some orthostatic hypotension, albeit mild. As patient was on a very low dose, we agreed to taper her off this medication on an outpatient basis over the next 5 days. Patient expressed understanding and stated she would follow up with her primary care provider about this taper. All questions were answered and patient was resting comfortably at the time of discharge. - Time Spent with Patient Total time spent providing and/or coordinating discharge services: Greater than 30 minutes (40 minutes.) - Constitutional Vitals: Temp Pulse Resp BP Pulse Ox 98.1 F 81 14 132/84 96 04/09/17 11:29 04/09/17 11:29 04/09/17 11:29 04/09/17 11:29 04/09/17 11:29 General appearance: Present: A&O X 3, morbidly obese - Respiratory Respiratory exam: Present: CTAB. Absent: accessory muscle use, rales, rhonchi, wheezes - Cardiovascular Cardiovascular exam: Present: RRR, +S1, +S2. Absent: diastolic murmur, gallop, rubs, systolic murmur - GI/Abdominal GI/Abdominal exam: Present: soft, no peritoneal signs. Absent: distended, tenderness - Extremities Exam Extremities exam: Present: warm, radial pulses palpable and symmetrical. Absent : calf tenderness, cyanotic, pedal edema - Neurological Exam Neurological exam: Present: alert. Absent: motor sensory deficit, no focal deficits, facial droop - Psychiatric Psychiatric exam: Present: normal affect, normal mood - Skin Skin exam: Present: dry, intact, warm <Jr Mistry - Last Filed: 04/09/17 13:58> Date of Encounter: 04/09/17 Procedures/tests Complete & Pending: Procedures Performed prior 72 hours Category Date Time Status CT angio neck [CT] Routine Cat Scan 04/08/17 18:03 Completed NM pul vent and perfuse [NM] Routine Exams 04/08/17 10:50 Completed EV carotid duplex imaging BI Routine Y 04/08/17 22:21 Completed EV echocardiogram Routine Y 04/08/17 01:04 Completed Date of admission: 04/07/17 21:19 Primary care physician: Gonzalo Jones DO Consults: 04/07/17 22:21 Consult to Cardiology [CONS] Routine Comment: Consulting Provider: Cardiology [facility] Reason for Consult: chest pain and syncopal episodes Call Completed: No 04/08/17 00:54 Consult to Occupational Therapy [CONS] Routine Comment: Evaluate, develop and implement POC Reason for Consult: weakness Consult to Physical Therapy [CONS] Routine Comment: Evaluate, develop and implement POC Reason for Consult: weakness 04/08/17 12:08 Consult to Invasive Line Access Team [CONS] Routine Reason for Consult: limited vascular access. Curent IV was in axilary area. Line Type: EPIV PICC line indications: Limited vascular access 04/08/17 13:10 Consult to Interpret Exam [CONS] Routine Consulting Provider: Raheem Desir Consult to Interpret Exam: Interpret EEG 04/08/17 17:24 Consult to Neurology [CONS] Routine Consulting Provider: Neurology [facility] Reason for Consult: Syncope with + LOC Call Completed: Yes Hospital course: Ms. Maldonado is a 51 year old female - Time Spent with Patient Total time spent providing and/or coordinating discharge services: - Constitutional Vitals: Temp Pulse Resp BP Pulse Ox 98.1 F 81 14 132/84 96 04/09/17 11:29 04/09/17 11:29 04/09/17 11:29 04/09/17 11:29 04/09/17 11:29 - Attending Attestation Syncope Symptoms consistent with orthostatic hypotension although the patiens sbp dropped only 17 points. Advised to taper down and discontinue Elavil. The patient prefers to discuss with her PCP the option of having a Holter. I examined this patient and my medical decision-making was reviewed with the Resident Physician. I agree with the documented findings, disposition and treatment plan as described except to the extent set forth below.
[2017-04-10 19:41] LABS: CK-MB (CK isoenzymes) 0 % (0-4); CK-MM (CK-isoenzymes) 86 % (96-100)
[2017-04-10 19:41] LABS: CK-MB (CK isoenzymes) 0 % (0-4); CK-MM (CK-isoenzymes) 92 % (96-100)
[2017-04-12 09:22] LABS: CK Total (Ck Isoenzymes) 41 U/L (20-180); CK-BB (CK isoenzymes) 6 % (0-0)
[2017-04-12 09:23] LABS: CK Total (Ck Isoenzymes) 38 U/L (20-180); CK-BB (CK isoenzymes) 0 % (0-0)
== END 2017-04-09 12:37 | disposition home or self-care (01) ==
LOC: EMEROO 17:56 → 3BNU 17:56
PROVIDERS: ADMIT Internal Medicine Hematology & Oncology; ATTEND Registered Nurse

== ENCOUNTER 2017-06-05 17:42 | Observation (INO) ==
[2017-06-05] MEDS ORDERED: Aspirin 81 MG TAB.CHEW PO ONE (17:45)
--- NOTE | 2017-06-05 17:50 | Emergency Department Note ---
Disposition Clinical Impression: Chest pain Qualifiers: Chest pain type: unspecified Qualified Code(s): R07.9 - Chest pain, unspecified Disposition: Admitted As Inpatient Condition: Good Time of Disposition: 17:53 Chest Pain HPI - General Chief Complaint: ED Chest Pain Stated Complaint: C/P Time Seen by Provider: 06/05/17 17:45 Source: patient Mode of arrival: ambulatory Limitations: no limitations Vital Signs Reviewed: Yes Nursing Notes Reviewed: Yes - History of Present Illness HPI Narrative: 52-year-old female with a history of previous stent done in 2012 a comes in complaining of chest pain that she says a similar character to what she had prior to requiring a stent. Does have risk factors of previous stent, diabetes, hypertension, high cholesterol, positive family history. Pt complaint: chest pain Onset (ago): Just [employer] Duration: intermittent Onset: during rest Pain Location: left chest Severity: moderate Quality: tightness, aching Pain Radiation: LUE Improves with: nitroglycerin Worsens with: movement Associated symptoms: Denies: diaphoresis, dyspnea, fever, cough Treatments prior to arrival chest pain: none - Related Data Home Medications Medication Instructions Recorded Confirmed Atenolol [Tenormin] 25 mg PO DAILY 04/23/15 05/10/17 Escitalopram [Lexapro] 20 mg PO HS 04/23/15 05/10/17 Insulin Glargine,Hum.rec.anlog 30 unit SQ HS 04/23/15 05/10/17 [Lantus Solostar] Lamotrigine [Lamictal] 100 mg PO HS 04/23/15 05/10/17 Levothyroxine [Synthroid] 25 mcg PO QAM 04/23/15 05/10/17 Liraglutide [Victoza 2-Aravind] 1.8 mg SQ DAILY 04/23/15 05/10/17 Loxapine Succinate [Loxapine] 10 mg PO HS 04/23/15 05/10/17 Pravastatin Sodium [Pravachol] 40 mg PO HS 04/23/15 05/10/17 Topiramate [Topamax] 50 mg PO BID 04/23/15 05/10/17 Trospium Chloride 20 mg PO HS 04/23/15 05/10/17 Insulin ASPART [Novolog Flexpen] 5 unit SQ TIDWM PRN 01/06/16 05/10/17 Etanercept [Enbrel] 50 mg SQ MO 03/08/16 05/10/17 Folic Acid 1 mg PO DAILY 03/08/16 05/10/17 Pioglitazone [Actos] 30 mg PO DAILY 07/06/16 05/10/17 LORazepam [Ativan] 0.5 mg PO DAILY PRN 10/14/16 05/10/17 Loratadine [Claritin] 10 mg PO DAILY 10/14/16 05/10/17 Meclizine HCl [Verticalm] 25 mg PO BID PRN 10/14/16 05/10/17 Multivitamin [Multi-Day Vitamins] 1 each PO DAILY 10/14/16 05/10/17 Nitroglycerin [Nitrostat] 0.4 mg SL Q5M PRN 10/14/16 05/10/17 Cholecalciferol (Vitamin D3) 4,000 unit PO DAILY 12/25/16 05/10/17 [Vitamin D3] Methotrexate [Otrexup] 15 mg PO TH 12/25/16 05/10/17 Orphenadrine Citrate 100 mg PO HS 04/07/17 05/10/17 SUMAtriptan succinate [Imitrex] 6 mg SQ DAILY PRN 04/07/17 05/10/17 Levothyroxine [Synthroid] 25 mcg PO 0630 05/10/17 05/10/17 Oxycodone HCl/Acetaminophen 1 tab PO Q6H PRN 05/10/17 05/10/17 [Percocet 5-325 mg Tablet] Previous Rx's Medication Instructions Recorded Phenazopyridine HCl [Pyridium] 200 mg PO TID #6 tab 05/07/17 Allergies Allergy/AdvReac Type Severity Reaction Status Date / Time diltiazem Allergy See Verified 06/05/17 17:52 Comments adenosine [From Adenocard] AdvReac Hypertensio Verified 06/05/17 17:52 n azithromycin AdvReac Nausea, Verified 06/05/17 17:52 rash diazepam AdvReac See Verified 06/05/17 17:52 Comments duloxetine [From Cymbalta] AdvReac See Verified 06/05/17 17:52 Comments Erythromycin Base AdvReac See Verified 06/05/17 17:52 [From Rolando-Tab] Comments isosorbide [From Imdur] AdvReac Headache Verified 06/05/17 17:52 metformin AdvReac flu like Verified 06/05/17 17:52 symptoms sertraline [From Zoloft] AdvReac "makes me Verified 06/05/17 17:52 cry" Verapamil AdvReac Hypertensio Verified 06/05/17 17:52 n All systems ED: reviewed and negative except as stated. Constitutional: Denies: fever, chills, weakness, weight change Eyes: Denies: eye pain, eye discharge, vision change ENT ED: Denies: ear pain, throat pain, dental pain, hearing loss, epistaxis, congestion, dysphagia Cardiovascular: Reports: chest pain. Denies: palpitations, dyspnea on exertion , edema, syncope Respiratory: Denies: cough, dyspnea, wheezes, hemoptysis, stridor Gastrointestinal: Denies: abdominal pain, nausea, vomiting, diarrhea, constipation, hematemesis, melena, hematochezia Genitourinary: Denies: dysuria, frequency, hematuria, discharge Musculoskeletal: Denies: back pain, neck pain, arthralgia, myalgia Integumentary: Denies: rash, abrasion, lesions Neurological: Denies: headache, weakness, numbness, paresthesias, confusion, abnormal gait, vertigo Psychiatric: Denies: anxiety, depression, suicidal thoughts, homicidal thoughts , auditory hallucinations, visual hallucinations Endocrine: Denies: fatigue Hematological/Lymphatic: Denies: easy bleeding, easy bruising Allergic/Immunologic: Denies: facial swelling, urticaria Chest Pain PMH - Past Medical History Medical history: Reports: arthritis, asthma, diabetes, GERD, hyperlipidemia, hypertension, migraine, RA, seizures, thyroid disease Surgical history: Reports: angioplasty/stent, breast surgery, cholecystectomy, herniorrhaphy, hip replacement, hysterectomy, orthopedic, other Psychiatric history: Reports: anxiety, bipolar, depression 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 - Social History Smoking Status: Never smoker Alcohol use: Reports: none Drug use: Reports: none Physical Exam - General Limitations: no limitations General appearance: alert, in no apparent distress - Head Head exam: atraumatic, normocephalic, normal inspection - Eye Eye exam: Present: normal appearance, PERRL, EOMI - ENT ENT exam: normal exam, normal oropharynx, mucous membranes moist - Neck Neck exam: Present: normal inspection, full ROM, trachea midline - Chest Chest inspection: Present: normal inspection, symmetric chest wall rise - Respiratory Respiratory exam: Present: normal lung sounds bilaterally - Cardiovascular Cardiovascular exam: Present: regular rate, normal rhythm, normal heart sounds - Abdominal Exam Abdominal exam: Present: soft, Non-Tender. Absent: tenderness, distention, guarding, rebound, rigidity - Extremities Exam Extremities exam: Present: normal inspection - Expanded Lower Extremity Exam Neurovascular/Tendon exam: Absent: motor deficit, sensory deficit, tendon deficit Gait: observed and normal - Back Exam Back exam: Present: normal inspection, full ROM. Absent: tenderness - Neurological Exam Neurological exam: Present: alert, oriented X3 - Psychiatric Psychiatric exam: Present: normal affect, normal mood - Skin Skin exam: Present: warm, dry, intact, normal color Course - Reevaluation(s) Reevaluation #1: 52-year-old the cardiac history comes in complaining of chest pain. Initial EKG shows no acute change. Patient will be admitted for further evaluation and treatment. Time: 18:29 - Consultations Consultation #1: Discussed with Dr. Argueta, admit. Time: 18:26 Vital Signs Temperature 97.7 F 06/05/17 17:45 Pulse Rate 75 06/05/17 17:45 Respiratory Rate 18 06/05/17 17:45 Blood Pressure 153/87 06/05/17 17:45 O2 Sat by Pulse Oximetry 100 06/05/17 17:45 Temperature 97.7 F 06/05/17 17:45 Pulse Rate 75 06/05/17 17:45 Respiratory Rate 18 06/05/17 17:45 Blood Pressure 153/87 06/05/17 17:45 O2 Sat by Pulse Oximetry 100 06/05/17 17:45 Oxygen Delivery Oxygen Delivery Room Air Chest Pain - Lab Data Result diagrams: 06/05/17 18:07 06/05/17 18:07 Lab Results 06/05/17 06/05/17 06/05/17 Range/Units 18:07 18:07 18:07 WBC 7.1 (4.3-11.1) K/mcL RBC 4.54 (3.82-4.97) M/mcL Hgb 14.4 (11.5-15.4) g/dL Hct 44.0 (35.3-44.9) % MCV 96.9 (83.0-100.0) fL MCH 31.7 (28.0-33.3) pg MCHC 32.7 (31.6-35.5) g/dL RDW 14.0 (11.5-14.5) % Plt Count 256 (140-400) K/mcL MPV 9.5 (9.4-12.4) fL Immature Gran % 0.3 (0-4) % Seg Neutrophils % 49.8 % Lymphocytes % 44.1 % Monocytes % 4.4 % Eosinophils % 1.0 % Basophils % 0.4 % Neutrophils # 3.5 (1.6-8.9) K/mcL Lymphocytes # 3.1 (0.6-4.6) K/mcL Monocytes # 0.3 (0.0-1.3) K/mcL Eosinophils # 0.1 (0.0-0.6) K/mcL Basophils # 0.0 (0.0-0.2) K/mcL PT 9.9 (9.4-12.1) Seconds INR 0.9 APTT 28.8 (26.0-36.0) Seconds Sodium 138 (136-145) mEq/L Potassium 4.2 (3.5-4.5) mEq/L Chloride 100 (98-109) mEq/L Carbon Dioxide 25 (19-29) mEq/L BUN 21 H (7-20) mg/dL Creatinine 1.10 (0.57-1.11) mg/dL Est GFR ( Amer) > 60 (> 60) Est GFR (Non-Af Amer) 52 L (> 60) BUN/Creatinine Ratio 19 (6-26) Glucose 140 H (70-99) mg/dL Calculated Osmolality 291 (280-300) Calcium 9.8 (8.6-10.8) mg/dL - Radiology Data Radiology results reviewed: Yes I reviewed the patient's radiology results. Chest X-Ray 06/05/17 17:45 IMPRESSION: No acute abnormality. D/ / Mike Reynoso MD / Mike Reynoso MD Interpreting Provider: Mike Reynoso MD - EKG Data EKG attestation: Yes I reviewed and interpreted this EKG. EKG shows normal: sinus rhythm Rate: normal Rhythm: NSR Interpretation: no acute changes Heart Score - Score History: Moderately Suspicious EKG: Normal Age: 45-65 Risk Factors: Equal/Greater than 3 risk factor or history of atherosclerotic disease Troponin: Less than normal limit HEART Score Total: 4
[2017-06-05 18:17] LABS: Basophils % 0.4 %; Eosinophils # 0.1 K/mcL (0.0-0.6); Hemoglobin 14.4 g/dL (11.5-15.4); Immature Granulocytes % 0.3 % (0-4); Lymphocytes # 3.1 K/mcL (0.6-4.6); Lymphocytes % 44.1 %; Mean Corpuscular HGB Conc 32.7 g/dL (31.6-35.5); Mean Corpuscular Hemoglobin 31.7 pg (28.0-33.3); Mean Corpuscular Volume 96.9 fL (83.0-100.0); Mean Platelet Volume 9.5 fL (9.4-12.4); Monocytes # 0.3 K/mcL (0.0-1.3); Monocytes % 4.4 %; Neutrophils # 3.5 K/mcL (1.6-8.9); Platelet Count 256 K/mcL (140-400); Red Blood Count 4.54 M/mcL (3.82-4.97); Segmented Neutrophils % 49.8 %
[2017-06-05 18:19] LABS: INR 0.9; Prothrombin Time 9.9 Seconds (9.4-12.1)
[2017-06-05 18:22] LABS: Activated Partial Thrombo Time 28.8 Seconds (26.0-36.0)
[2017-06-05 18:27] LABS: BUN/Creatinine Ratio 19 (6-26); Blood Urea Nitrogen 21 mg/dL (7-20); Calcium 9.8 mg/dL (8.6-10.8); Carbon Dioxide 25 mEq/L (19-29); Chloride 100 mEq/L (98-109); Glucose 140 mg/dL (70-99); Osmolality,Calculated 291 (280-300); Potassium 4.2 mEq/L (3.5-4.5); Sodium 138 mEq/L (136-145); eGFR For African Americans > 60 (> 60); eGFR For Non-African Americans 52 (> 60)
[2017-06-05] MEDS ORDERED: *HR* Morphine 2 MG/ML SYRINGE IVP ONE (18:50)
[2017-06-05] MEDS ORDERED: Ondansetron 4 MG/2 ML VIAL IVP ONE (18:50)
--- NOTE | 2017-06-05 20:45 | Internal Med History&Physical ---
<Sharmila Carmen - Last Filed: 06/05/17 21:57> Date of Encounter: 06/05/17 Time of Encounter: 20:34 Assessment and Plan (1) Chest pain Current visit: Yes Status: Acute Typical chest pain at rest. Retrosternal with radiation down left arm and to jaw, partially relieved with nitroglycerin. Unchanged by exertion. Admitted diaphoresis, shortness of breath, nausea. Stent placement 2012 BRITTANY score 3- (risk factors, prior stenosis, aspirin use) EKG showed normal sinus rhythm, no ST changes in no changes compared to previous EKG. Troponin 0.01 CXR demonstrated no cardio pulmonary process. Stress test December 2016 was normal. Echocardiogram March 2017- normal systolic function EF= 60%, normal diastolic function, no pulmonary hypertension. Patient reports that chest pain is still minimally present, morphine is helping. Afebrile, vital stable. Trend troponin cardiology consult in morning Nitroglycerin PRN Zofran PRN cardiac monitoring cardiac diet Qualifiers: Chest pain type: unspecified Qualified Code(s): R07.9 - Chest pain, unspecified (2) CAD (coronary artery disease) Current visit: No Status: Chronic Stent placement [address] Del Rio home medications of Plavix, atorvastatin, atenolol, aspirin, nitro Qualifiers: Coronary Disease-Associated Artery/Lesion type: [place] artery [place] vs. 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 use: with computer terminal operator use Qualified Code(s): E11.59 - Type 2 diabetes mellitus with other circulatory complications; Z79.4 - senior living (current) use of insulin (4) GERD (gastroesophageal reflux disease) Current visit: No Status: Acute History of GERD taking Prilosec Qualifiers: Esophagitis presence: without esophagitis Qualified Code(s): K21.9 - Gastro -esophageal reflux disease without esophagitis (5) DVT prophylaxis Current visit: No Status: Acute Ambulatory TID Internal Medicine - H&P: HPI Chief complaint: Chest pain Admitted From: Home Plans for Post Hospital Care: Home History of present illness: Ms. Maldonado is a 52 year old female with past medical history of CHD, stent placement 2012, diabetes, hypertension, hyperlipidemia, hyperthyroidism presented to the hospital complaining of chest pain that began at 3 PM. She stated that she was driving at the time that started and was partially relieved by nitroglycerin. She stated that exerting herself did not worsen the pain. She stated that the pain radiated from her chest down her left arm and up her neck to her jaw. She described the pain as a pressure and squeezing. She said that the pain lasted from 3 PM until she got to the hospital. She admitted cough, diaphoresis, shortness of breath, nausea. She denied syncope, headache, fever, chills, change in vision, wheezing, vomiting, abdominal pain, and hematemesis. She states that she has been under a tremendous amount of stress lately in relation to family matters. She stated that the last time she has had chest pain like this before and came to the ED was earlier this year in July, [place] was ruled out. Last stress test was in December 2016, it was normal. Echocardiogram in March 2017 showed normal systolic function EF= 60%, normal diastolic function, no pulmonary hypertension. Last heart cath was in 2014. Her centrifugal station operator is Dr. Del Rio. She denies ever having a [place] or recent travel. She stated that she had an upper respiratory infection last week. EKG in ED showed normal sinus rhythm no ST changes in no changes compared to previous EKG. Troponin 0.01. She was given aspirin, morphine, Zofran in ED. Upon examining the patient she is resting comfortably in bed in no acute distress. She is alongside a friend. She stated that the pain is still minimally present in her chest. She stated that the morphine has helped. She is also requesting dinner. She is a full code Past Med Surg Social Fam HX - Past Medical History Medical history: arthritis, asthma, diabetes, GERD, hyperlipidemia, hypertension , migraine, RA, seizures, thyroid disease Psychiatric history: anxiety, bipolar, depression - Past Surgical History Surgical History: angioplasty/stent, breast surgery, cholecystectomy, herniorrhaphy, hip replacement, hysterectomy, orthopedic, other - Social History Smoking Status: Never smoker Smokeless Tobacco Status: No Alcohol use: none Drug use: none Occupational status: disabled Current living situation: Home - Family History Mother Living Status: Hx Family Cardiac Disorders: Yes (HTN, CHF) Hx Family Respiratory Disorders: Yes (copd) Hx Family Cancer: Yes (leukemia) Hx Family GI Disorders: No Hx Family Endocrine Disorder: Yes (dm) Hx Family Neuromuscular Disorders: No Hx Family Neurologic Disorders: No Hx Family HEENT Disorders: No Hx Family Autoimmune Disorders: No Father Living Status: Still Living Hx Family Cardiac Disorders: Yes (HTN) Hx Family Respiratory Disorders: Yes (copd, emphysema) Hx Family Cancer: Yes (prostate cancer) Hx Family GI Disorders: No Hx Family Endocrine Disorder: No Hx Family Neuromuscular Disorders: No Hx Family Neurologic Disorders: No Hx Family HEENT Disorders: No Hx Family Autoimmune Disorders: No Internal Medicine - H&P: Meds Atenolol [Tenormin] 25 mg PO DAILY 04/23/15 [History] Escitalopram [Lexapro] 20 mg PO HS 04/23/15 [History] Lamotrigine [Lamictal] 100 mg PO HS 04/23/15 [History] Levothyroxine [Synthroid] 25 mcg PO QAM 04/23/15 [History] Liraglutide [Victoza 2-Aravind] 1.8 mg SQ DAILY 04/23/15 [History] Loxapine Succinate [Loxapine] 10 mg PO HS 04/23/15 [History] Trospium Chloride 20 mg PO HS 04/23/15 [History] Etanercept [Enbrel] 50 mg SQ MO 03/08/16 [History] Folic Acid 1 mg PO DAILY 03/08/16 [History] Pioglitazone [Actos] 45 mg PO DAILY 07/06/16 [History] LORazepam [Ativan] 0.5 mg PO DAILY PRN 10/14/16 [History] Loratadine [Claritin] 10 mg PO DAILY 10/14/16 [History] Multivitamin [Multi-Day Vitamins] 1 each PO DAILY 10/14/16 [History] Nitroglycerin [Nitrostat] 0.4 mg SL Q5M PRN 10/14/16 [History] Cholecalciferol (Vitamin D3) [Vitamin D3] 4,000 unit PO DAILY 12/25/16 [History] Methotrexate [Otrexup] 15 mg PO TH 12/25/16 [History] Orphenadrine Citrate 100 mg PO HS 04/07/17 [History] SUMAtriptan succinate [Imitrex] 6 mg SQ DAILY PRN 04/07/17 [History] Aspirin [Lo-Dose Aspirin EC] 81 mg PO DAILY 06/05/17 [History] Atorvastatin [Lipitor] 10 mg PO HS 06/05/17 [History] Benztropine [Cogentin] 0.5 mg PO BID 06/05/17 [History] Clopidogrel [Plavix] 75 mg PO DAILY 06/05/17 [History] Famotidine [Pepcid] 40 mg PO BID 06/05/17 [History] 3 Allergy/AdvReac Type Severity Reaction Status Date / Time diltiazem Allergy See Verified 06/05/17 17:52 Comments adenosine [From Adenocard] AdvReac Hypertensio Verified 06/05/17 17:52 n azithromycin AdvReac Nausea, Verified 06/05/17 17:52 rash diazepam AdvReac See Verified 06/05/17 17:52 Comments duloxetine [From Cymbalta] AdvReac See Verified 06/05/17 17:52 Comments Erythromycin Base AdvReac See Verified 06/05/17 17:52 [From Rolando-Tab] Comments isosorbide [From Imdur] AdvReac Headache Verified 06/05/17 17:52 metformin AdvReac flu like Verified 06/05/17 17:52 symptoms sertraline [From Zoloft] AdvReac "makes me Verified 06/05/17 17:52 cry" Verapamil AdvReac Hypertensio Verified 06/05/17 17:52 n All Systems PM: A 10-system review of systems was performed and is negative for pertinent findings except as documented above in the HPI. - Constitutional Constitutional: no chills, no fever(s), no falls - EENT Eyes: no blurry vision, no change in vision - Cardiovascular Cardiovascular ROS IM: chest pain, diaphoresis, dyspnea, edema, no lightheadedness, no syncope - Respiratory Respiratory: cough, dyspnea, no hemoptysis, no wheezing, no excessive phlegm production - Gastrointestinal Gastrointestinal: nausea, no abdominal pain, no hematemesis, no vomiting - Musculoskeletal Musculoskeletal ROS IM: no back pain - Integumentary Integumentary IM: no rash - Neurological Neurological ROS: no dizziness, no frequent falls, no headache(s) - Psychiatric Psychiatric: anxiety, other (stress) - Constitutional Vitals: Temp Pulse Resp BP Pulse Ox 98.1 F 76 15 128/78 98 06/05/17 19:48 06/05/17 19:48 06/05/17 19:48 06/05/17 19:48 06/05/17 19:48 General appearance: Present: A&O X 3, pleasant, no acute distress - Head Head exam: Present: atraumatic, normocephalic - Eye Eye exam: Present: normal appearance, conjuntiva pink. Absent: scleral icterus - ENT ENT exam: Present: mucous membranes moist - Respiratory Respiratory exam: Present: CTAB. Absent: rales, rhonchi, wheezes - Cardiovascular Cardiovascular exam: Present: RRR, +S1, +S2. Absent: clicks - GI/Abdominal GI/Abdominal exam: Present: normal bowel sounds, soft. Absent: firm, guarding, tenderness - Extremities Exam Extremities exam: Present: normal inspection, radial pulses palpable and symmetrical. Absent: tenderness - Back Exam Back exam: Present: normal inspection. Absent: tenderness - Neurological Exam Neurological exam: Present: alert, oriented X3. Absent: facial droop - Psychiatric Psychiatric exam: Present: normal affect, normal mood - Skin Skin exam: Present: dry, intact Internal Med - H&P Results - Labs CBC & Chem 7: 06/05/17 18:07 06/05/17 18:07 <Collin Batista - Last Filed: 06/05/17 22:20> Date of Encounter: 06/05/17 Internal Medicine - H&P: HPI History of present illness: Ms. Maldonado is a 52 year old female All Systems PM: A 10-system review of systems was performed and is negative for pertinent findings except as documented above in the HPI. - Constitutional Vitals: Temp Pulse Resp BP Pulse Ox 98.1 F 76 15 128/78 98 06/05/17 19:48 06/05/17 19:48 06/05/17 19:48 06/05/17 19:48 06/05/17 19:48 Internal Med - H&P Results - Labs CBC & Chem 7: 06/05/17 18:07 06/05/17 18:07 - Attending Attestation I conducted a face to face diagnostic evaluation of this patient and my medical decision-making was reviewed with the Resident Physician, Dr. Sharmila Carmen. I agree with the documented findings, disposition and treatment plan as described except to the extent set forth below: Chest pain suggestive of unstable angina in a patient with known history of coronary artery disease. We will trend troponin, monitor on telemetry, consult cardiology in the morning. Echocardiogram from 04/08/2017 reviewed her records shows LVEF of 60%, normal diastolic dysfunction no valvular disease. Pulmonary embolism also enters the differential says the patient reports chest pain and shortness of breath as well as leg swelling. I will order d-dimer. She is at high risk for morbidity and complications due to treatment with IV opiates for pain.
[2017-06-05] MEDS ORDERED: Naloxone 0.4 MG/ML INJ IVP PRN (20:50)
[2017-06-05] MEDS ORDERED: Nitroglycerin 0.4 MG TAB.SUBL SL PRN (21:53)
[2017-06-05] MEDS ORDERED: Orphenadrine 100 MG TABLET.ER PO ONE (23:53)
[2017-06-05] MEDS: *HR* Morphine 2 MG/ML SYRINGE IVP PRN (23:54)
[2017-06-06] MEDS: LOXAPINE 10 MG PO SCH ×2 (00:49→09:33)
[2017-06-06] MEDS: TROSPIUM 20 MG PO SCH ×2 (00:49→21:19)
[2017-06-06] MEDS: lamoTRIgine 100 MG TABLET PO SCH ×2 (00:49→21:18)
[2017-06-06] MEDS: Aspirin Enteric Coated 81 MG Tablet PO SCH (09:33)
[2017-06-06] MEDS: Famotidine 20 MG TABLET PO SCH ×2 (09:33→21:18)
[2017-06-06] MEDS: *HR* Morphine 2 MG/ML SYRINGE IVP PRN ×2 (13:52→22:13)
[2017-06-06] MEDS: Ondansetron ODT 4 MG TAB.RAPDIS SL PRN ×2 (14:08→22:16)
--- NOTE | 2017-06-06 18:24 | Internal Med Progress Note ---
Date of Encounter: 06/06/17 Time of Encounter: 18:16 - Assessment and plan (1) Chest pain Current Visit: Yes Status: Acute Assessment and plan: Typical chest pain with history of CAD. Continue ASA, morphine, nitro. Cardiology consulted, recommendations appreciated. Qualifiers: Chest pain type: unspecified Qualified Code(s): R07.9 - Chest pain, unspecified (2) Asthma Current Visit: No Status: Acute Assessment and plan: Aerosol treatment as needed. Qualifiers: Asthma severity: mild intermittent Qualified Code(s): J45.20 - Mild intermittent asthma, uncomplicated (3) DVT prophylaxis Current Visit: No Status: Acute (4) Diabetes Current Visit: No Status: Acute Assessment and plan: Labs show glucose levels 130-140 which is acceptable in the inpatient setting. May need to change diet to diabetic + cardiac and add sliding scale if needed. 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 (5) GERD (gastroesophageal reflux disease) Current Visit: No Status: Acute Assessment and plan: Pepcid BID Qualifiers: Esophagitis presence: without esophagitis Qualified Code(s): K21.9 - Gastro -esophageal reflux disease without esophagitis (6) Hypertension Current Visit: No Status: Acute Assessment and plan: Atenolol Qualifiers: Hypertension type: essential hypertension Qualified Code(s): I10 - Essential (primary) hypertension (7) Migraine headache without aura Current Visit: No Status: Acute Qualifiers: Status migrainosus presence: without status migrainosus Intractability: not intractable Qualified Code(s): G43.009 - Migraine without aura, not intractable, without status migrainosus (8) CAD (coronary artery disease) Current Visit: No Status: Chronic Assessment and plan: Aspirin, Plavix, Lipitor Qualifiers: Coronary Disease-Associated Artery/Lesion type: [place] artery [place] vs. transplanted heart: [place] heart Associated angina: with unstable angina Qualified Code(s): I25.110 - Atherosclerotic heart disease of [place] coronary artery with unstable angina pectoris (9) CKD (chronic kidney disease) stage 3, GFR 30-59 ml/min Current Visit: No Status: Chronic Assessment and plan: Renally dose all medications. - Subjective Interval history: States earlier she had another episode of midsternal chest pain, lasted for 20 minutes and lingers with pain radiating to arms, back, and abdomen. - Constitutional Vitals: Temp Pulse Resp BP Pulse Ox 98.4 F 80 16 112/75 94 06/06/17 15:10 06/06/17 15:10 06/06/17 15:10 06/06/17 15:10 06/06/17 15:10 General appearance: Present: A&O X 3, pleasant, no acute distress Exam: - Head Head exam: Present: atraumatic, normocephalic - Eye Eye exam: Present: normal appearance, conjuntiva pink. Absent: scleral icterus - ENT ENT exam: Present: mucous membranes moist - Respiratory Respiratory exam: Present: CTAB. Absent: rales, rhonchi, wheezes - Cardiovascular Cardiovascular exam: Present: RRR, +S1, +S2. Absent: clicks - GI/Abdominal GI/Abdominal exam: Present: normal bowel sounds, soft. Absent: firm, guarding, tenderness - Extremities Exam Extremities exam: Present: normal inspection, radial pulses palpable and symmetrical. Absent: tenderness - Back Exam Back exam: Present: normal inspection. Absent: tenderness - Neurological Exam Neurological exam: Present: alert, oriented X3. Absent: facial droop - Psychiatric Psychiatric exam: Present: normal affect, normal mood - Skin Skin exam: Present: dry, intact Internal Medicine: Result - Labs CBC & Chem 7: 06/05/17 18:07 06/05/17 18:07 Labs: Cardiac Enzymes 06/05/17 Range/Units 22:36 Troponin I 0.00 (0-0.03) ng/mL - ABG Interpretation ABG results: PT/INR, D-dimer PT 9.9 Seconds (9.4-12.1) 06/05/17 18:07 D-Dimer 248 ng/mLFEU (0-500) 06/05/17 22:36 Consult Discharge Plan - Plan Referrals: Gonzalo Jones DO [Primary Care Provider] -
--- NOTE | 2017-06-06 21:00 | Cardiology Consult Note ---
Date of Encounter: 06/06/17 Time of Encounter: 20:10 Assessment and Plan (1) Unstable angina pectoris due to coronary arteriosclerosis Current Visit: Yes Status: Acute Pt with known moderate CAD having increased chest pain lasting longer, provoked by lower levels of exercise, relieved with rest or sublinqual ntg. Discussed options for continued medical tx versus LHC/Poss, my recommendations for invasive strategy due to her decreased exercise tolerance, she elects to proceed with LHC in AM. (2) CAD (coronary artery disease) Current Visit: No Status: Chronic Moderate disease in all three vessels with patent stents in LAD in 2014, will await results of LHC in am. Qualifiers: Coronary Disease-Associated Artery/Lesion type: [place] artery [place] vs. transplanted heart: [place] heart Associated angina: with unstable angina Qualified Code(s): I25.110 - Atherosclerotic heart disease of [place] coronary artery with unstable angina pectoris Discussion w patient/family: The assessment and plan as outlined above was discussed with the patient and/or family members who expressed understanding and agreement. All questions were answered. Thank you for involving us in the care of your patient. Please call with any questions. History of Present Illness Consult date: 06/06/17 Requesting physician: Kylah Torres Consult reason: chest pain Chief complaint: chest pain History of present illness: Ms. Maldonado is a 52 year old female who presented to the ER with complaint of recurrent mid sternal chest pain, squeezing sensation, 8/10 at most severe, provoked by exercise, lasting up to ten minutes, relieved with rest, associated with shortness of breath and diaphoresis during the chest pain. Pain is the same as she experienced before she had a INÉS placed in OM2 in 2012. She notes feeling weak and tired for several hours after an episode of chest pain. These episodes are occurring more frequently and with greater intensity over last two weeks. Past Med Surg Social Fam HX - Past Medical History Medical history: arthritis, asthma, diabetes, GERD, hyperlipidemia, hypertension , migraine, RA, seizures, thyroid disease Psychiatric history: anxiety, bipolar, depression - Past Surgical History Surgical History: angioplasty/stent, breast surgery, cholecystectomy, herniorrhaphy, hip replacement, hysterectomy, orthopedic, other - Social History Smoking Status: Never smoker Smokeless Tobacco Status: No Alcohol use: none Drug use: none - Family History Mother Living Status: Hx Family Cardiac Disorders: Yes (HTN, CHF) Hx Family Respiratory Disorders: Yes (copd) Hx Family Cancer: Yes (leukemia) Hx Family GI Disorders: No Hx Family Endocrine Disorder: Yes (dm) Hx Family Neuromuscular Disorders: No Hx Family Neurologic Disorders: No Hx Family HEENT Disorders: No Hx Family Autoimmune Disorders: No Father Living Status: Still Living Hx Family Cardiac Disorders: Yes (HTN) Hx Family Respiratory Disorders: Yes (copd, emphysema) Hx Family Cancer: Yes (prostate cancer) Hx Family GI Disorders: No Hx Family Endocrine Disorder: No Hx Family Neuromuscular Disorders: No Hx Family Neurologic Disorders: No Hx Family HEENT Disorders: No Hx Family Autoimmune Disorders: No Medications and Allergies Atenolol [Tenormin] 25 mg PO DAILY 04/23/15 [History] Escitalopram [Lexapro] 20 mg PO HS 04/23/15 [History] Lamotrigine [Lamictal] 100 mg PO HS 04/23/15 [History] Levothyroxine [Synthroid] 25 mcg PO QAM 04/23/15 [History] Liraglutide [Victoza 2-Aravind] 1.2 mg SQ DAILY 04/23/15 [History] Loxapine Succinate [Loxapine] 10 mg PO HS 04/23/15 [History] Trospium Chloride 20 mg PO HS 04/23/15 [History] Etanercept [Enbrel] 50 mg SQ MO 03/08/16 [History] Folic Acid 1 mg PO DAILY 03/08/16 [History] Pioglitazone [Actos] 45 mg PO DAILY 07/06/16 [History] LORazepam [Ativan] 0.5 mg PO DAILY PRN 10/14/16 [History] Loratadine [Claritin] 10 mg PO DAILY 10/14/16 [History] Multivitamin [Multi-Day Vitamins] 1 tab PO DAILY 10/14/16 [History] Nitroglycerin [Nitrostat] 0.4 mg SL Q5M PRN 10/14/16 [History] Cholecalciferol (Vitamin D3) [Vitamin D3] 4,000 unit PO DAILY 12/25/16 [History] Methotrexate [Otrexup] 15 mg PO TH 12/25/16 [History] Orphenadrine Citrate 100 mg PO HS 04/07/17 [History] SUMAtriptan succinate [Imitrex] 6 mg SQ DAILY PRN 04/07/17 [History] Aspirin [Lo-Dose Aspirin EC] 81 mg PO DAILY 06/05/17 [History] Atorvastatin [Lipitor] 10 mg PO HS 06/05/17 [History] Benztropine [Cogentin] 0.5 mg PO BID 06/05/17 [History] Clopidogrel [Plavix] 75 mg PO DAILY 06/05/17 [History] Famotidine [Pepcid] 40 mg PO BID 06/05/17 [History] Adalimumab [Humira] 40 mg SQ Q2W 06/06/17 [History] Fenofibrate [Tricor] 108 mg PO DAILY 06/06/17 [History] Insulin ASPART [Novolog Flexpen] 2 - 12 unit SQ TIDWM 06/06/17 [History] Insulin Glargine,Hum.rec.anlog [Lantus Solostar] 30 unit SQ HS 06/06/17 [History ] Meloxicam [Mobic] 15 mg PO DAILY 06/06/17 [History] 3 Allergy/AdvReac Type Severity Reaction Status Date / Time diltiazem Allergy See Verified 06/05/17 17:52 Comments adenosine [From Adenocard] AdvReac Hypertensio Verified 06/05/17 17:52 n azithromycin AdvReac Nausea, Verified 06/05/17 17:52 rash diazepam AdvReac See Verified 06/05/17 17:52 Comments duloxetine [From Cymbalta] AdvReac See Verified 06/05/17 17:52 Comments Erythromycin Base AdvReac See Verified 06/05/17 17:52 [From Rolando-Tab] Comments isosorbide [From Imdur] AdvReac Headache Verified 06/05/17 17:52 metformin AdvReac flu like Verified 06/05/17 17:52 symptoms sertraline [From Zoloft] AdvReac "makes me Verified 06/05/17 17:52 cry" Verapamil AdvReac Hypertensio Verified 06/05/17 17:52 n All Systems Review: A 10-system review of systems was performed and is negative for pertinent findings except as documented above in the HPI. - Constitutional Constitutional: fatigue - Cardiovascular Cardiovascular: chest pain with exertion, diaphoresis, irregular heart rhythm, rapid heart rate Physical Examination Vital Signs, Last 4 Hours Temp Pulse Resp BP Pulse Ox 06/06/17 19:16 98.2 F 82 15 121/83 97 06/06/17 19:15 98.7 F 80 15 134/79 95 General: Conversant, No Apparent Distress HEENT: Atraumatic, Normocephaly, Mucus Membranes Moist Neck: No JVD, Normal carotid pulses Cardiac: Reg Rate and Rhythm, Normal S1 and S2, No Murmur Lungs: Normal Breath Sounds, No Wheeze, Rales, Rhonchi Neuro: Alert and responsive, No focal deficits noted Abdomen: Non-Tender (morbidly obese) Skin: No rashes noted on visualized skin Musculoskeletal: No Chest Wall Tenderness Extremities: No Clubbing, No Cyanosis, No Edema Results 06/05/17 18:07 06/05/17 18:07 Lab Results 06/05/17 06/05/17 22:36 22:36 D-Dimer 248 Troponin I 0.00 Consult Discharge Plan - Plan Referrals: Gonzalo Jones DO [Primary Care Provider] -
[2017-06-06] MEDS ORDERED: LOXAPINE 10 MG PO SCH (21:30)
[2017-06-07 04:25] LABS: Basophils % 0.2 %; Eosinophils # 0.2 K/mcL (0.0-0.6); Eosinophils % 2.1 %; Hematocrit 40.9 % (35.3-44.9); Hemoglobin 13.6 g/dL (11.5-15.4); Immature Granulocytes % 0.2 % (0-4); Immature Platelets 2.6 % (1.1-6.1); Lymphocytes # 3.3 K/mcL (0.6-4.6); Lymphocytes % 38.7 %; Mean Corpuscular HGB Conc 33.3 g/dL (31.6-35.5); Mean Corpuscular Hemoglobin 31.5 pg (28.0-33.3); Mean Corpuscular Volume 94.7 fL (83.0-100.0); Mean Platelet Volume 10.2 fL (9.4-12.4); Monocytes # 0.6 K/mcL (0.0-1.3); Monocytes % 7.2 %; Neutrophils # 4.3 K/mcL (1.6-8.9); Platelet Count 177 K/mcL (140-400); Red Blood Count 4.32 M/mcL (3.82-4.97); Red Cell Distribution Width 13.9 % (11.5-14.5); Segmented Neutrophils % 51.6 %
[2017-06-07 04:53] LABS: BUN/Creatinine Ratio 21 (6-26); Blood Urea Nitrogen 22 mg/dL (7-20); Calcium 9.5 mg/dL (8.6-10.8); Carbon Dioxide 19 mEq/L (19-29); Chloride 107 mEq/L (98-109); Glucose 128 mg/dL (70-99); Osmolality,Calculated 291 (280-300); Platelet Estimate Normal (Normal); Potassium 4.7 mEq/L (3.5-4.5); Sodium 138 mEq/L (136-145); eGFR For African Americans > 60 (> 60); eGFR For Non-African Americans 56 (> 60)
[2017-06-07] MEDS: Aspirin Enteric Coated 81 MG Tablet PO SCH (09:17)
[2017-06-07] MEDS: Famotidine 20 MG TABLET PO SCH (09:17)
[2017-06-07] MEDS ORDERED: Verapamil 5 MG/2 ML VIAL ONE (10:17)
[2017-06-07] MEDS ORDERED: Nitroglycerin 1,000 MCG/10 ML VIAL IV ONE (10:18)
[2017-06-07] MEDS ORDERED: Heparin 1,000 UNITS/500 mL NS 500 ML ONE (10:18)
[2017-06-07] MEDS ORDERED: *HR* Heparin 10,000 UNIT/10 ML VIAL ONE (10:18)
[2017-06-07] MEDS ORDERED: 0.9 % Sodium Chloride 1,000 ML ONE ×2 (10:18→15:51)
[2017-06-07] MEDS ORDERED: Acetaminophen 325 MG TABLET PO PRN (10:32)
[2017-06-07] MEDS ORDERED: *HR* FentaNYL (PF) 100 MCG/2 ML VIAL ONE (15:51)
[2017-06-07] MEDS ORDERED: *HR* Midazolam HCl 2 MG/2 ML VIAL ONE (15:51)
--- NOTE | 2017-06-07 16:12 | Pre-Sedation Evaluation ---
Pre-sedation evaluation - Pre-sedation checklist Date of procedure: 06/07/17 Procedure: [facility] Recent Vitals: Last Vital Signs Temp 98.3 F 06/07/17 12:21 Pulse 76 06/07/17 12:21 Resp 15 06/07/17 12:21 BP 112/67 06/07/17 12:21 Pulse Ox 93 06/07/17 12:21 H&P (including ROS) documented in medical record: Yes Previous reaction to sedatives/anesthetics: No Dietary Status: NPO after Midnight Dentition: No loose teeth or bridges, full dentition ASA Classification *see protocol: CLASS II-Mild systemic disease Plan of Care: Pt appropriate candidate for procedure/moderate/conscious sedation , Risks/benefits of procedure/sedation discussed w/ patient/family
[2017-06-07] MEDS ORDERED: *HR* Adenosine 6 MG/2 ML VIAL IVP ONE (16:30)
--- NOTE | 2017-06-07 16:47 | Event Note ---
Date of Encounter: 06/07/17 Time of Encounter: 16:46 - Cardiology Event Note Per discussion with , [facility] with no intervention necessary. Cardiology will sign off and will follow in outpatient setting. Follow up set.
--- NOTE | 2017-06-07 17:03 | Invasive Diagnostic Lab Proc ---
Name: Jose Antonio Maldonado Date of Study: 06/07/2017 Date: 1965 Ht: 63.0in Medical Record#: [id number] Age: 52 Wt: 205.47lb Gender: Female BSA: 1.96 Order #: [id number] BMI: 36.41 Physicians Procedure Physician: Fili Moran MD, [facility] Referring MD: Referring MD: Staff Name Position Time In Sites, Joanna RT (R) Monitor 04:01 PM Navdeep Nolasco RT (R) Scrub 04:01 PM Andreina Celeste RN Barrel Cutter 04:01 PM Indications Indication Unstable Angina Procedures Performed Procedure L HRT ARTERY/VENTRICLE ANGIO IV Doppler BLD Flow 1st Vessel Pre-Procedure Checklist Informed consent is complete signed and on chart. H&P is on chart. ID band is on and ID verified with patient. Patient NPO for procedure The procedure was described for the patient and questions were answered. Blood Pressure: 116/76 ECG is on chart. Rhythm: NSR Plan of Care Patient will tolerate the procedure without complications. Adequate level of comfort will be maintained. Hemodynamics will remain stable Patient will recover from procedure without complications. Respiratory function will be maintained. Cardiac rhythm will remain stable. Patient temperature will be maintained. Patient and/or family have verbalized understanding of the procedure. Patient Education Chief Complaint/Reason for Test: Cardiac Cath Developmental Category: Adult (18-64 years) Developmentally Appropriate for Age: Yes Learning Barriers: None Education Needs: Procedure Education Method: Verbal Information Taught: Cardiac Cath Educational Evaluation: Able to repeat information Intravenous Access Time IV Size Location DC'd Fluid/Drip Rate Units RN 22g 1" Patent On Arrival Rt Arm 0.9NaCl ml/hr 20g 1 1/4" Patent On Arrival Rt Antecubital Allergies metformin Erythromycin Base isosorbide diazepam adenosine Verapamil azithromycin diltiazem Vital Signs Time BP (mmHg) HR (bpm) O2 Sat. RR (bpm) LOC 04:03 PM / % 5 = Fully awake and oriented or at pre-proc level 04:03 PM / % 4 = Oriented but drowsy 04:19 PM / % 4 = Oriented but drowsy 04:21 PM 135 / 74 68 96 % 11 04:26 PM 137 / 87 70 100 % 22 04:31 PM 142 / 82 79 100 % 04:36 PM 154 / 90 81 100 % 27 04:41 PM 141 / 84 72 98 % 22 04:46 PM 139 / 86 70 100 % 04:11 PM 149 / 89 64 96 % 21 04:16 PM 149 / 81 69 100 % 18 04:34 PM / % 5 = Fully awake and oriented or at pre-proc level Procedural Medications Time Medication Dose Units Method Given By 04:17 PM Versed 2 mg Intravenous Andreina Celeste RN 04:17 PM Fentanyl 50 mcg Intravenous Andreina Celeste RN 04:23 PM Lidocaine 2% 19 ml Subcutaneous Fili Moran MD, [facility] 04:32 PM Heparin 4000 units Intravenous Andreina Celeste RN 04:34 PM Nitroglycerin 200 mcg Intracoronary Fili Moran MD 04:39 PM Adenosine 400 mcg Intracoronary Fili Moran MD, [facility] ASA Classification: CLASS II- Mild systemic disease (i.e. well-controlled diabetes, hypertension, asthma, cigarette smoking) Denise Score Preprocedure Postprocedure Activity 2- Moves 4 extremities sustained head lift Activity 2- Moves 4 extremities sustained head lift Circulation 2- SBP +/= 20 points of pre-anesthetic level Circulation 2- SBP +/= 20 points of pre-anesthetic level Consciousness 2- Awake and alert oriented x 3 Consciousness 2- Awake and alert oriented x 3 O2 Saturation 2- Able to maintain O2 satruation of 92% on room air O2 Saturation 2- Able to maintain O2 satruation of 92% on room air Respiratory 2- Able to deep breathe and cough well Respiratory 2- Able to deep breathe and cough well Total Score 10 Total Score 10 Contrast Agent: Isovue Diagnostic Contrast: 72 ml Total Contrast: 72 ml Fluoro Dose: 221 mGy Procedure Log Time Note Enter By 03:55 PM CathStat 04:01 PM Pt arrived to laboratory technician 2 at 16:01 tsites 04:01 PM Joanna Grady RT (R) Position: Monitor Time in: 16:01 tsites 04:01 PM Navdeep Nolasco RT (R) Position: Scrub Time in: 16:01 tsites 04:01 PM Andreina Celeste RN Position: Barrel Cutter Time in: 16:01 tsites 04:01 PM Patient charges- Angio tray pack, Navilyst 3mm J, Pulse Oximetry and ACIST tubing and transducer tsites 04:01 PM Physician arrived 16:01 tsites 04:02 PM Meet and greet completed tsites 04:02 PM Sign in performed according to hospital policy. tsites 04:02 PM Procedure start 16:02 tsites 04:02 PM Case Delayed No tsites 04:03 PM Time: 16:03 Patient comfortable and pain free: Yes tsites 04:03 PM Time: 16:03LOC: 5 = Fully awake and oriented or at pre-proc level tsites 04:03 PM Clinical Presentation: Unstable angina tsites 04:10 PM Vitals capture started with the following parameters, Patient=Adult, Interval=5 min, Initial Ptugugvo=483 mmHg, Deflation Rate=5 mmHg, Cuff placed on Right Arm 04:11 PM HR=64 bpm, TIVG=523/89 mmhg, SpO2=96.0 %, Resp=21 B/min 04:15 PM Recorded ECG: HR=66 Condition=Condition 1 04:16 PM HR=69 bpm, JEBU=713/81 mmhg, DxX9=818.0 %, Resp=18 B/min 04:17 PM Hair removed from procedure site in holding area using clippers. Bilateral groin prepped with Chloraprep by Miguel A, Joanna RT (R), safety strap applied then patient was draped. Skin intact. tsites 04:17 PM Time: 16:17 Versed 2 mg Intravenous Given by Andreina Celeste RN tsites 04:17 PM Time: 16:17 Fentanyl 50 mcg Intravenous Given by Andreina Celeste RN tsites 04:19 PM Pressure channel 1 zeroed. 04:19 PM Time: 16:03LOC: 4 = Oriented but drowsy tsites 04:19 PM Time: 16:03 Patient comfortable and pain free: Yes tsites 04:21 PM HR=68 bpm, NPNP=935/74 mmhg, SpO2=96.0 %, Resp=11 B/min 04:23 PM Time out performed according to hospital policy tsites 04:25 PM Time: 16:23 19 ml Lidocaine 2% to right groin Subcutaneous Given by Fili Moran MD, [facility] tsites 04:25 PM Access obtained by percutaneous puncture. 5Fr 10cm Terumo [place] sheath placed in Femoral artery. [id number] tsites 04:25 PM 5Fr FR 4 catheter inserted over the wire [facility] tsites 04:25 PM 0.035 145cm Navilyst 3mmJ wire [id number] tsites 04:26 PM LCA angiography performed in multiple views. tsites 04:26 PM Recorded Pressure: Ao, HR=72, Condition=Condition 1 (Aorta) Ao 133/87/107 04:26 PM HR=70 bpm, LEWY=342/87 mmhg, FsQ1=099.0 %, Resp=22 B/min 04:27 PM Lesion found in Mid LAD. Pre Stenosis: 15 Pre BRITTANY Flow: tsites 04:27 PM wire reinserted catheter removed tsites 04:28 PM 5Fr FR 4 catheter inserted over the wire DN tsites 04:30 PM RCA angiography performed in multiple views. tsites 04:30 PM wire reinserted catheter removed tsites 04:30 PM Recorded Pressure: LV, HR=78, Condition=Condition 1 (Left Ventricle) LV 160/0/17 04:31 PM 5Fr Pigtail catheter inserted over the wire DN tsites 04:31 PM Catheter selectively placed in left ventricle tsites 04:31 PM Bolus angiogram of left Ventricle complete: 10 ml/sec for a total of 20 mls tsites 04:31 PM HR=79 bpm, VGUT=328/82 mmhg, YgP6=869.0 % 04:31 PM Recorded Pressure: LV, Ao, HR=81, Condition=Condition 1 (Left Ventricle) LV 151/4/53, (Aorta) Ao 154/81/112 04:31 PM Lesion found in Mid Circumflex. Pre Stenosis: 60 Pre BRITTANY Flow: tsites 04:32 PM Sheath exchanged for a 6 Fr 11 cm Terumo [place] sheath [id number] tsites 04:32 PM Time: 16:32 Heparin 4000 units Intravenous Given by Andreina Celeste RN tsites 04:33 PM 6Fr CLS 3.0 Runway guide catheter was used to cannulate the PCI vessel successfully. reused? No tsites 04:34 PM Time: 16:19 Patient comfortable and pain free: Yes tsites 04:34 PM Time: 16:19LOC: 4 = Oriented but drowsy tsites 04:35 PM Time: 16:34 Nitroglycerin 200 mcg Intracoronary Given by Fili Moran MD tsites 04:36 PM HR=81 bpm, IMJO=721/90 mmhg, GkM4=264.0 %, Resp=27 B/min 04:37 PM .014 [place] 180cm guide wire across target lesion- successful. reused? No tsites 04:37 PM Inflation device was opened. tsites 04:38 PM ACIST FFR catheter advanced to target lesion. tsites 04:39 PM Time: 16:39 Adenosine 400 mcg administered Intracoronary by Fili Moran MD, FACC tsites 04:40 PM FFR Measurement: 0.99 tsites 04:40 PM Flow Wire/catheter removed removed intact tsites 04:40 PM wire reinserted catheter removed tsites 04:41 PM HR=72 bpm, LYVT=946/84 mmhg, SpO2=98.0 %, Resp=22 B/min 04:41 PM Bolus angiogram of right Femoral complete: 2 ml/sec for a total of 4 mls tsites 04:43 PM Procedure completed at 16:43 tsites 04:44 PM Sign out completed: Radiation Dose 221 mGy Fluoro Time: 3.1 Isovue 370 - 500ml contrast 72 ml given by Fili Moran MD, FAC. Complications: NoneCardiac Rehab Consult needed: NoConfirmed administered medications: Yes tsites 04:44 PM Isovue 370 - 500ml,1 Bottle(s) used. tsites 04:44 PM Arterial sheath pulled, Mynx closure device used and was Successful S/N. tsites 04:44 PM Estimated Blood Loss: minimal tsites 04:44 PM Post ECG NSR tsites 04:45 PM Post Blood Pressure 141/84 tsites 04:45 PM 16:45 Post Pulses Bilateral DP & PT 1+ tsites 04:45 PM Information taught Cardiac Cath and Mynx tsites 04:45 PM Education needs Procedure, Plan of Care, and Responsibilities of Patient in Care tsites 04:45 PM Learning barriers :None tsites 04:45 PM Education Methods Verbal tsites 04:45 PM Education evaluation Able to repeat information tsites 04:46 PM Site status No bleeding/hematoma - Rt Groin as reported by Navdeep Nolasco RT (R) at 16:45 tsites 04:46 PM Opsite applied tsites 04:46 PM HR=70 bpm, HOBO=947/86 mmhg, AyK6=051.0 % 04:47 PM Vitals capture stopped. 04:50 PM Time: 16:34LOC: 5 = Fully awake and oriented or at pre-proc level tsites 04:50 PM Time: 16:34 Patient comfortable and pain free: Yes tsites 04:50 PM Report given to laina CRYSTAL Pt taken to 3B Room #49. 16:50 tsites 04:51 PM Delay to floor No tsites 04:51 PM Patient out of room: 16:51 tsites 04:51 PM Family placed in holding area family wanted to stay there during procedure tsites Complications Complication None Hemodynamics Pressures Site Systolic/A Wave Diastolic/V Wave Mean AO 133 87 107 LV 160 0 17 LV 151 4 53 AO 154 81 112 Post Procedure Information Blood Pressure: 141/84 mmHg Rhythm: NSR Post procedural instructions were given Closure Device Time Device Success/Fail 06/07/2017 4:52:00 PM MynxGrip Successful Site Checks Time Location Status Staff Sheath In? Note 04:45 PM Rt Groin No bleeding/hematoma Navdeep Nolasco RT (R) Pulses Time Site Pre-Procedure Post-Procedure Note Bilateral DP & PT 2+ Bilateral radial 2+ 4:45:00 PM Bilateral DP & PT 1+ Updated by Joanna Grady RT (R) on 06/07/2017 4:58:14 PM Joanna Miguel A RT electronically signed on 06/07/2017 4:59:24 PM with status of Final
--- NOTE | 2017-06-07 19:22 | Discharge Summary ---
Date of Encounter: 06/07/17 Time of Encounter: 19:19 - Discharge Diagnosis (1) Chest pain Priority: Primary Status: Acute Qualifiers: Chest pain type: unspecified Qualified Code(s): R07.9 - Chest pain, unspecified (2) Asthma Priority: Secondary Status: Acute Qualifiers: Asthma severity: unspecified severity Asthma persistence: unspecified Asthma complication type: uncomplicated Qualified Code(s): J45.909 - Unspecified asthma, uncomplicated (3) DVT prophylaxis Priority: Secondary Status: Acute (4) Diabetes Priority: Secondary Status: Acute Qualifiers: Diabetes mellitus type: type 2 Diabetes mellitus complication status: with circulatory complication Diabetes mellitus complication detail: with other circulatory complications Diabetes mellitus bed bug exterminator insulin use: with bed bug exterminator use Qualified Code(s): E11.59 - Type 2 diabetes mellitus with other circulatory complications; Z79.4 - senior living (current) use of insulin (5) GERD (gastroesophageal reflux disease) Priority: Secondary Status: Acute Qualifiers: Esophagitis presence: without esophagitis Qualified Code(s): K21.9 - Gastro -esophageal reflux disease without esophagitis (6) Hypertension Priority: Secondary Status: Acute Qualifiers: Hypertension type: essential hypertension Qualified Code(s): I10 - Essential (primary) hypertension (7) Migraine headache without aura Priority: Secondary Status: Acute Qualifiers: Status migrainosus presence: without status migrainosus Intractability: not intractable Qualified Code(s): G43.009 - Migraine without aura, not intractable, without status migrainosus (8) CAD (coronary artery disease) Priority: Secondary Status: Chronic Qualifiers: Coronary Disease-Associated Artery/Lesion type: [place] artery [place] vs. transplanted heart: [place] heart Associated angina: with unstable angina Qualified Code(s): I25.110 - Atherosclerotic heart disease of [place] coronary artery with unstable angina pectoris (9) CKD (chronic kidney disease) stage 3, GFR 30-59 ml/min Priority: Secondary Status: Chronic - Discharge Medications Home Medications: Atenolol [Tenormin] 25 mg PO DAILY 04/23/15 [History] Escitalopram [Lexapro] 20 mg PO HS 04/23/15 [History] Lamotrigine [Lamictal] 100 mg PO HS 04/23/15 [History] Levothyroxine [Synthroid] 25 mcg PO QAM 04/23/15 [History] Liraglutide [Victoza 2-Aravind] 1.2 mg SQ DAILY 04/23/15 [History] Loxapine Succinate [Loxapine] 10 mg PO HS 04/23/15 [History] Trospium Chloride 20 mg PO HS 04/23/15 [History] Etanercept [Enbrel] 50 mg SQ MO 03/08/16 [History] Folic Acid 1 mg PO DAILY 03/08/16 [History] Pioglitazone [Actos] 45 mg PO DAILY 07/06/16 [History] LORazepam [Ativan] 0.5 mg PO DAILY PRN 10/14/16 [History] Loratadine [Claritin] 10 mg PO DAILY 10/14/16 [History] Multivitamin [Multi-Day Vitamins] 1 tab PO DAILY 10/14/16 [History] Nitroglycerin [Nitrostat] 0.4 mg SL Q5M PRN 10/14/16 [History] Cholecalciferol (Vitamin D3) [Vitamin D3] 4,000 unit PO DAILY 12/25/16 [History] Methotrexate [Otrexup] 15 mg PO TH 12/25/16 [History] Orphenadrine Citrate 100 mg PO HS 04/07/17 [History] SUMAtriptan succinate [Imitrex] 6 mg SQ DAILY PRN 04/07/17 [History] Aspirin [Lo-Dose Aspirin EC] 81 mg PO DAILY 06/05/17 [History] Atorvastatin [Lipitor] 10 mg PO HS 06/05/17 [History] Benztropine [Cogentin] 0.5 mg PO BID 06/05/17 [History] Clopidogrel [Plavix] 75 mg PO DAILY 06/05/17 [History] Famotidine [Pepcid] 40 mg PO BID 06/05/17 [History] Adalimumab [Humira] 40 mg SQ Q2W 06/06/17 [History] Fenofibrate [Tricor] 108 mg PO DAILY 06/06/17 [History] Insulin ASPART [Novolog Flexpen] 2 - 12 unit SQ TIDWM 06/06/17 [History] Insulin Glargine,Hum.rec.anlog [Lantus Solostar] 30 unit SQ HS 06/06/17 [History ] Meloxicam [Mobic] 15 mg PO DAILY 06/06/17 [History] Allergies/Adverse Reactions: 3 Allergy/AdvReac Type Severity Reaction Status Date / Time diltiazem Allergy See Verified 06/05/17 17:52 Comments adenosine [From Adenocard] AdvReac Hypertensio Verified 06/05/17 17:52 n azithromycin AdvReac Nausea, Verified 06/05/17 17:52 rash diazepam AdvReac See Verified 06/05/17 17:52 Comments duloxetine [From Cymbalta] AdvReac See Verified 06/05/17 17:52 Comments Erythromycin Base AdvReac See Verified 06/05/17 17:52 [From Rolando-Tab] Comments isosorbide [From Imdur] AdvReac Headache Verified 06/05/17 17:52 metformin AdvReac flu like Verified 06/05/17 17:52 symptoms sertraline [From Zoloft] AdvReac "makes me Verified 06/05/17 17:52 cry" Verapamil AdvReac Hypertensio Verified 06/05/17 17:52 n Procedures/tests Complete & Pending: Procedures Performed prior 72 hours Category Date Time Status CL Cardiac Catheterization [CL] Routine Travel Specialist 06/07/17 08:54 Ordered Date of admission: 06/05/17 19:10 Primary care physician: Gonzalo Jones DO Consults: 06/05/17 21:53 Consult to Cardiology [CONS] Routine Comment: Consulting Provider: Cardiology Yue Reason for Consult: chest pain- unstable angina, stent placement 2012 Call Completed: No Discharging clinician: Thelma Inman - Patient Status Disposition: Home, Self-Care Condition: Good Functional capacity at discharge: independent ambulation Overall status at discharge: patient is back to baseline - Discharge Instructions Instructions: Chest Pain (DC), Heart Healthy Diet (DC) Follow Up With: Gonzalo Jones DO [Primary Care Provider] - Forms: ED Satisfaction Letter Additional Instructions: RISK FACTORS: STOP SMOKING: If you smoke, STOP. Smoking or tobacco use significantly increases your risk of heart disease because nicotine causes the arteries to narrow or constrict. It also causes fats to stick to the artery. Your chances of having a heart attack are greatly increased if you continue to smoke. For more information, call the education line for smoking cessation 1-273-WTWONJO EAT A LOW FAT/CHOLESTEROL/SODIUM DIET: This diet may help reduce your chances of having a heart attack. LIFTING: Avoid lifting anything more than 10 pounds for 5-7 days Prior to straining, laughing, sneezing and/or coughing, apply manual pressure directly over insertion site. ACTIVITY: You may walk or climb stairs as tolerated You can resume sexual activity as tolerated In general, you are encouraged to engage in a minimum of 30 minutes or more of moderate intensity physical activity, such as brisk walking, daily or at least 3 -4 times weekly BATHING Do not submerge the site into water (bath tub, hot tub, swimming pool) for 1 week. This can be a source for infection into the blood stream. You may shower after 24 hours SITE CARE: After 24 hours, you may remove the dressing and leave the site open to air. Keep the site clean and dry. Clean gently and pat dry. You can expect bruising and tenderness that gradually resolve within a week or two. Return to work as instructed per your physician Resume driving as instructed per physician Keep all scheduled follow up appointments Resume medications as instructed IMPORTANT: If prescribed a Platelet Aggregation Inhibitor such as, Plavix, Brilinta or Effient: Duration of therapy is minimum one year These medications are often used in combination with Aspirin in prevention of future heart attacks Never discontinue unless consult with your Property Man STROKE (CVA) Risk factors for a stroke are: Age, cigarette smoking, diabetes, excessive alcohol consumption, family history, high blood pressure, overweight, physical inactivity, prior stroke, heart attack, diagnosis of carotid artery stenosis or other artery disease. Warning signs: Sudden numbness or weakness of the face, arm or leg; especially on one side of the body, sudden confusion, trouble speaking or understanding, sudden trouble seeing in one or both eyes, sudden trouble walking, dizziness, loss of balance or coordination, sudden severe headache with no cause. Call 911 or go to the Emergency Room. CONGESTIVE HEART FAILURE: If you have been diagnosed with Congestive Heart Failure (CHF) and your symptoms return, make an appointment with your physician Weigh yourself daily. Notify your physician if you have a weight gain of two or more pounds in one day or five or more pounds in one week. If you experience any difficulty breathing, please call 911 BLEEDING: Although the risk of bleeding is minimal, it can happen. If you have any bleeding from the site, apply firm pressure above the puncture site for 10-15 minutes. If the bleeding does not stop, continue manual pressure and call 911 Contact your physician if: You develop a fever greater than 101 degrees Fahrenheit Your site becomes reddened or has any drainage You have an increase in pain or burning at the site or if a large knot forms at the site. If you experience chest pain, shortness of breath, dizziness, or extreme tiredness, stop the activity and rest. Please notify your physicians office if you experience any of these symptoms and they are not relieved by rest please call 911! Follow-up appointments: If there is not an appointment listed below, please call your physician and schedule a follow-up appointment. If you have congestive heart failure and your symptoms return, make an appointment with your physician. Medication List: Carry an up to date list of medications you are taking at all time. We have given you an updated medication list including any new medications that you have been prescribed. Please provide that list to your primary provider Symptoms: If your condition changes or you experience any of the following symptoms, notify your physician immediately: Unusual or worsening pain, fever, persistent nausea and vomiting, bleeding, increase in swelling (especially in your legs), sudden weight gain, extreme dizziness, chest pain, increased drainage or redness from a wound or incision. Go to the emergency department if you experience a problem with breathing. Weights: If you have a history of swelling or shortness of breath, weigh yourself daily and notify your physician if you have a weight gain of two or more pounds in one day or 5 or more pounds in a week. If you experience any of the warning signs for stroke: Sudden numbness or weakness of the face, arm or leg; especially on one side of the body, sudden confusion, trouble speaking or understanding, sudden trouble seeing in one or both eyes, sudden trouble walking, dizziness, loss of balance or coordination, sudden sever headache with no cause; Call 911 or go to the emergency room. Stroke is a medical emergency. Some risk factors for stroke: Age, cigarette smoking, diabetes, excessive alcohol consumption, family history , high blood pressure, overweight, physical inactivity, prior stroke, heart attack, diagnosis of carotid artery stenosis or other artery disease. If you smoke, STOP: Smoking or tobacco use significantly increases your risk of heart and lung disease. Your chance of disease greatly increases if you continue to smoke. For more information, call the [place] tobacco quit line for smoking cessation 1-800- QUIT-NOW ( ) - Diet and Activity Activity: increase activity as tolerated Diet: advance to your usual diet Hospital course: Ms. Maldonado is a 52 year old female with past medical history of CHD, stent placement 2012, diabetes, hypertension, hyperlipidemia, hyperthyroidism presented to the hospital complaining of chest pain that began at 3 PM. She stated that she was driving at the time that started and was partially relieved by nitroglycerin. She stated that exerting herself did not worsen the pain. She stated that the pain radiated from her chest down her left arm and up her neck to her jaw. She described the pain as a pressure and squeezing. She said that the pain lasted from 3 PM until she got to the hospital. She admitted cough, diaphoresis, shortness of breath, nausea. She denied syncope, headache, fever, chills, change in vision, wheezing, vomiting, abdominal pain, and hematemesis. She states that she has been under a tremendous amount of stress lately in relation to family matters. She stated that the last time she has had chest pain like this before and came to the ED was earlier this year in July, [place] was ruled out. Last stress test was in December 2016, it was normal. Echocardiogram in March 2017 showed normal systolic function EF= 60%, normal diastolic function, no pulmonary hypertension. Last heart cath was in 2014. She stated that she had an upper respiratory infection last week. EKG in ED showed normal sinus rhythm no ST changes in no changes compared to previous EKG. Troponin 0.01. Chest x-ray showed no acute process. She was given aspirin, morphine, Zofran in ED. Patient was brought in for observation and workup. Cardiology was consulted. Aspirin, lipitor, and nitro prn were given. A LHC was done on 06/07. No intervention was necessary. Patient was discharged home in stable condition. A follow-up appointment was set for patient. - Time Spent with Patient Total time spent providing and/or coordinating discharge services: - Constitutional Vitals: Temp Pulse Resp BP Pulse Ox 98.3 F 72 16 119/66 90 06/07/17 12:21 06/07/17 18:02 06/07/17 18:02 06/07/17 18:02 06/07/17 18:02 General appearance: Present: A&O X 3, pleasant, no acute distress Exam: CVS: RRR, ns1/s2 Lungs: CTAB Abd; NT/ND Ext: no edema.
--- NOTE | 2017-06-07 19:57 | Electrocardiograph Report ---
[place] [id number] Test Date: 2017-06-05 Pat Name: Jose Antonio Maldonado Department: 104 Room: 3B Gender: F Residency Program Coordinator: : 1965 Requested By: Everardo Chopra Order Number: [id number] Reading MD: Fili Moran MD Measurements Intervals [place] Rate: 76 P: 37 NV: 178 QRS: 37 QRSD: 84 T: 51 QT: 374 QTc: 404 Interpretive Statements SINUS RHYTHM Electronically Signed On 06-07-2017 19:55:59 EST by Fili Moran MD
[2017-06-07 20:05] VITALS: BP 138/78
== END 2017-06-07 20:25 | disposition home or self-care (01) ==
LOC: EMEROO 17:42 → 3BNU 17:42
PROVIDERS: ADMIT Internal Medicine; ATTEND Registered Nurse

== ENCOUNTER 2017-06-07 23:10 | Observation (INO) ==
[2017-06-07] MEDS ORDERED: *HR* Morphine 2 MG/ML SYRINGE IVP ONE (23:35)
--- NOTE | 2017-06-07 23:37 | Emergency Department Note ---
Disposition Clinical Impression: Hematoma Post-operative complication Qualifiers: Surgical complication system/body Area: circulatory system Surgical complication type: hematoma Procedure type: cardiac catheterization Qualified Code(s): I97.630 - Postprocedural hematoma of a circulatory system organ or structure following a cardiac catheterization Disposition: Admitted As Inpatient Condition: Fair Time of Disposition: 07:08 General Adult HPI - General Chief complaint: ED Recheck/Abnormal Lab/Rx Stated complaint: SP LHC/ hematoma Time Seen by Provider: 06/07/17 23:34 Source: patient, family Limitations: no limitations Nursing Notes Reviewed: Yes Vital Signs Reviewed: Yes - History of Present Illness HPI Narrative: Mrs. Maldonado, 52-year-old female, presents from home for evaluation of pain in her right groin. Patient had a left heart catheter performed this evening (17: 000) at this facility. Was discharged at 20:00. Patient followed protocol home and lay down. She spontaneously began experiencing her right groin pain. She has no other complaints at this time. Pain Scale: 7 - Related Data Home Medications Medication Instructions Recorded Confirmed Atenolol [Tenormin] 25 mg PO DAILY 04/23/15 06/06/17 Escitalopram [Lexapro] 20 mg PO HS 04/23/15 06/06/17 Lamotrigine [Lamictal] 100 mg PO HS 04/23/15 06/06/17 Levothyroxine [Synthroid] 25 mcg PO QAM 04/23/15 06/06/17 Liraglutide [Victoza 2-Aravind] 1.2 mg SQ DAILY 04/23/15 06/06/17 Loxapine Succinate [Loxapine] 10 mg PO HS 04/23/15 06/06/17 Trospium Chloride 20 mg PO HS 04/23/15 06/06/17 Etanercept [Enbrel] 50 mg SQ MO 03/08/16 06/06/17 Folic Acid 1 mg PO DAILY 03/08/16 06/06/17 Pioglitazone [Actos] 45 mg PO DAILY 07/06/16 06/06/17 LORazepam [Ativan] 0.5 mg PO DAILY PRN 10/14/16 06/06/17 Loratadine [Claritin] 10 mg PO DAILY 10/14/16 06/06/17 Multivitamin [Multi-Day Vitamins] 1 tab PO DAILY 10/14/16 06/06/17 Nitroglycerin [Nitrostat] 0.4 mg SL Q5M PRN 10/14/16 06/06/17 Cholecalciferol (Vitamin D3) 4,000 unit PO DAILY 12/25/16 06/06/17 [Vitamin D3] Methotrexate [Otrexup] 15 mg PO TH 12/25/16 06/06/17 Orphenadrine Citrate 100 mg PO HS 04/07/17 06/06/17 SUMAtriptan succinate [Imitrex] 6 mg SQ DAILY PRN 04/07/17 06/06/17 Aspirin [Lo-Dose Aspirin EC] 81 mg PO DAILY 06/05/17 06/06/17 Atorvastatin [Lipitor] 10 mg PO HS 06/05/17 06/06/17 Benztropine [Cogentin] 0.5 mg PO BID 06/05/17 06/06/17 Clopidogrel [Plavix] 75 mg PO DAILY 06/05/17 06/06/17 Famotidine [Pepcid] 40 mg PO BID 06/05/17 06/06/17 Adalimumab [Humira] 40 mg SQ Q2W 06/06/17 06/06/17 Fenofibrate [Tricor] 108 mg PO DAILY 06/06/17 06/06/17 Insulin ASPART [Novolog Flexpen] 2 - 12 unit SQ TIDWM 06/06/17 06/06/17 Insulin Glargine,Hum.rec.anlog 30 unit SQ HS 06/06/17 06/06/17 [Lantus Solostar] Meloxicam [Mobic] 15 mg PO DAILY 06/06/17 06/06/17 Allergies Allergy/AdvReac Type Severity Reaction Status Date / Time diltiazem Allergy See Verified 06/05/17 17:52 Comments adenosine [From Adenocard] AdvReac Hypertensio Verified 06/05/17 17:52 n azithromycin AdvReac Nausea, Verified 06/05/17 17:52 rash diazepam AdvReac See Verified 06/05/17 17:52 Comments duloxetine [From Cymbalta] AdvReac See Verified 06/05/17 17:52 Comments Erythromycin Base AdvReac See Verified 06/05/17 17:52 [From Rolando-Tab] Comments isosorbide [From Imdur] AdvReac Headache Verified 06/05/17 17:52 metformin AdvReac flu like Verified 06/05/17 17:52 symptoms sertraline [From Zoloft] AdvReac "makes me Verified 06/05/17 17:52 cry" Verapamil AdvReac Hypertensio Verified 06/05/17 17:52 n All systems ED: reviewed and negative except as stated. 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 HEENT: No facial asymmetry. Head is normocephalic and atraumatic. PERRLA, EOMI. oral mucosa moist. Trachea midline. Cardiovascular: Heart regular rate and rhythm without clicks, rubs, gallops, or murmurs. No JVD. PMI nondisplaced. Respiratory: Symmetric chest rise with good respiratory effort. Bilateral breath sounds are clear without wheezing, crackles, or rhonchi. Abdomen: Obese. Bowel sounds present normoactive x-4 quadrants. Abdomen is soft, nondistended, and nontender. Musculoskeletal: Spontaneously moving all extremities. Neuro: GCS 15. Alert and oriented 4. Skin: Subcutaneous hematoma with ecchymosis overlying patient's right groin, just proximal to the inguinal ligament. This extends medially over the mons pubis as well as laterally to the anterior axillary line. Patient is tender over this region as well as in her posterior right flank Psych: Patient's affect is appropriate for situation. - General Limitations: no limitations General appearance: alert, in no apparent distress Course Course Narrative: presents with a surgical complication from interventional cardiology. CT pelvis shows right inguinal hemorrhage and edema without active arterial extravasation or retroperitoneal extension. Despite no active extravasation, there is clinical concern and that the patient had her heart At 5 PM, was discharged at 8 PM, and was back in the hospital less than 4 hours later with hematoma. Placed ice pack for vasoconstriction and large Antonio wrap around the patient's hips to provide light pressure. I discussed the patient with on-call interventional cardiology, Dr. Hernandez. I discussed the patient's clinical picture in CTA findings. I requested he admit the patient given she is having a postoperative complication from a left heart catheter. He recommended the patient born in emergency department until his arrival in the morning. We discussed the lack of visibility of this plan. Because the patient had no active extravasation on CTA, he was hesitant to come into the hospital for admission. I discussed the patient with the admitting hospitalist, Dr. Subramanian, who is amenable to accepting the patient to his service for continued evaluation and management. Abdomen/Pelvis CTA 06/08/17 23:35 IMPRESSION: There is hemorrhage and edema in the right inguinal region without active arterial extravasation or extension into the retroperitoneum. D/ / Orion Magallon MD / Orion Magallon MD Interpreting Provider: Orion Magallon MD Vital Signs Temperature 97.5 F L 06/07/17 23:11 Pulse Rate 78 06/07/17 23:11 Respiratory Rate 16 06/07/17 23:11 Blood Pressure 130/85 06/07/17 23:11 O2 Sat by Pulse Oximetry 100 06/07/17 23:11 Temperature 97.5 F L 06/08/17 03:47 Pulse Rate 71 06/08/17 03:47 Respiratory Rate 16 06/08/17 03:47 Blood Pressure 150/100 06/08/17 03:47 O2 Sat by Pulse Oximetry 99 06/08/17 03:47 Oxygen Delivery Oxygen Delivery Room Air Medical Decision Making - Lab Data Result diagrams: 06/08/17 00:15 06/08/17 00:15 Lab Results 06/08/17 06/08/17 Range/Units 00:15 00:15 WBC 9.1 (4.3-11.1) K/mcL RBC 4.02 (3.82-4.97) M/mcL Hgb 12.7 (11.5-15.4) g/dL Hct 39.1 (35.3-44.9) % MCV 97.3 (83.0-100.0) fL MCH 31.6 (28.0-33.3) pg MCHC 32.5 (31.6-35.5) g/dL RDW 13.8 (11.5-14.5) % Plt Count 228 (140-400) K/mcL MPV 9.8 (9.4-12.4) fL Immature Gran % 0.4 (0-4) % Seg Neutrophils % 65.2 % Lymphocytes % 26.4 % Monocytes % 5.8 % Eosinophils % 1.8 % Basophils % 0.4 % Neutrophils # 5.9 (1.6-8.9) K/mcL Lymphocytes # 2.4 (0.6-4.6) K/mcL Monocytes # 0.5 (0.0-1.3) K/mcL Eosinophils # 0.2 (0.0-0.6) K/mcL Basophils # 0.0 (0.0-0.2) K/mcL Immature Plt Fraction 2.8 (1.1-6.1) % Sodium 136 (136-145) mEq/L Potassium 3.9 (3.5-4.5) mEq/L Chloride 104 (98-109) mEq/L Carbon Dioxide 23 (19-29) mEq/L BUN 21 H (7-20) mg/dL Creatinine 1.10 (0.57-1.11) mg/dL Est GFR ( Amer) > 60 (> 60) Est GFR (Non-Af Amer) 52 L (> 60) BUN/Creatinine Ratio 19 (6-26) Glucose 175 H (70-99) mg/dL Calculated Osmolality 289 (280-300) Calcium 8.7 (8.6-10.8) mg/dL Attestation Statement - Attestation Attestation: I examined this patient and my medical decision-making was reviewed with the Resident Physician. I agree with the documented findings, disposition and treatment plan as described except to the extent set forth below. Findings consistent with a groin hematoma. I would recommend admission for serial groin exams. Discussed case with on-call hospitalist who recommends admission to service the performed the procedure. Unfortunately they are not willing to accept the patient for admission. The hospitalist is agreeable to take the patient for serial groin exams, monitoring of groin hematoma. No contrast extravasation suggest aneurysm.
[2017-06-08 00:27] LABS: Basophils % 0.4 %; Eosinophils # 0.2 K/mcL (0.0-0.6); Eosinophils % 1.8 %; Hematocrit 39.1 % (35.3-44.9); Hemoglobin 12.7 g/dL (11.5-15.4); Immature Granulocytes % 0.4 % (0-4); Immature Platelets 2.8 % (1.1-6.1); Lymphocytes # 2.4 K/mcL (0.6-4.6); Lymphocytes % 26.4 %; Mean Corpuscular HGB Conc 32.5 g/dL (31.6-35.5); Mean Corpuscular Hemoglobin 31.6 pg (28.0-33.3); Mean Corpuscular Volume 97.3 fL (83.0-100.0); Mean Platelet Volume 9.8 fL (9.4-12.4); Monocytes # 0.5 K/mcL (0.0-1.3); Monocytes % 5.8 %; Neutrophils # 5.9 K/mcL (1.6-8.9); Platelet Count 228 K/mcL (140-400); Red Blood Count 4.02 M/mcL (3.82-4.97); Red Cell Distribution Width 13.8 % (11.5-14.5); Segmented Neutrophils % 65.2 %
[2017-06-08 00:37] LABS: BUN/Creatinine Ratio 19 (6-26); Blood Urea Nitrogen 21 mg/dL (7-20); Calcium 8.7 mg/dL (8.6-10.8); Carbon Dioxide 23 mEq/L (19-29); Chloride 104 mEq/L (98-109); Glucose 175 mg/dL (70-99); Osmolality,Calculated 289 (280-300); Potassium 3.9 mEq/L (3.5-4.5); Sodium 136 mEq/L (136-145); eGFR For African Americans > 60 (> 60); eGFR For Non-African Americans 52 (> 60)
[2017-06-08] MEDS ORDERED: *HR* Morphine 2 MG/ML SYRINGE IVP ONE (02:59)
--- NOTE | 2017-06-08 04:21 | Internal Med History&Physical ---
Date of Encounter: 06/08/17 Time of Encounter: 04:18 Assessment and Plan (1) Groin hematoma Current visit: Yes Status: Acute Groin hematoma at the femoral access site. No evidence of pseudoaneurysm and no not currently extravasating. No bleeding. Plan: Bedrest. Frequent groin checks. Cardiology consult. Tylenol for pain. Local cold compresses. Does not need pressure dressing or FemoStop. Qualifiers: Encounter type: initial encounter Qualified Code(s): S30.1XXA - Contusion of abdominal wall, initial encounter (2) Hypertension Current visit: No Status: Acute Continue with atenolol. Qualifiers: Hypertension type: essential hypertension Qualified Code(s): I10 - Essential (primary) hypertension (3) CAD (coronary artery disease) Current visit: No Status: Chronic Continue with aspirin and Plavix and statin. Qualifiers: Coronary Disease-Associated Artery/Lesion type: [place] artery [place] vs. transplanted heart: [place] heart Associated angina: with unstable angina Qualified Code(s): I25.110 - Atherosclerotic heart disease of [place] coronary artery with unstable angina pectoris (4) Diabetes Current visit: No Status: Acute Resumed oral antidiabetic medication and insulin. 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 Maldonado is a 52 year old female who presents to the hospital for evaluation of right groin pain. She had a left heart catheterization with right groin access performed yesterday. She was discharged home and followed the instructions. Yesterday evening she started noticing a swelling in the right groin and she had increasing pain which became severe, sharp, radiating to the right thigh. She denied any numbness or weakness associated with it. A CT of the abdomen and pelvis showed evidence of hematoma. No pseudoaneurysm. A 10 point review of systems was negative except as above. Family history was reviewed and found to be noncontributory to this presentation given the specifics of it. Past Med Surg Social Fam HX - Past Medical History Medical history: arthritis, asthma, diabetes, GERD, hyperlipidemia, hypertension , migraine, RA, seizures, thyroid disease Psychiatric history: anxiety, bipolar, depression - Past Surgical History Surgical History: angioplasty/stent, breast surgery, cholecystectomy, herniorrhaphy, hip replacement, hysterectomy, orthopedic, other - Social History Smoking Status: Never smoker Smokeless Tobacco Status: No Alcohol use: none Drug use: none - Family History Mother Living Status: Hx Family Cardiac Disorders: Yes (HTN, CHF) Hx Family Respiratory Disorders: Yes (COPD) Hx Family Cancer: Yes (Leukemia) Hx Family GI Disorders: No Hx Family Endocrine Disorder: Yes (Dm2) Hx Family Neuromuscular Disorders: No Hx Family Neurologic Disorders: Yes (CVA) Hx Family HEENT Disorders: No Hx Family Autoimmune Disorders: No Father Living Status: Still Living Hx Family Cardiac Disorders: Yes (HTN) Hx Family Respiratory Disorders: Yes (COPD, emphysema) Hx Family Cancer: Yes (Prostate) Hx Family GI Disorders: No Hx Family Endocrine Disorder: No Hx Family Neuromuscular Disorders: No Hx Family Neurologic Disorders: No Hx Family HEENT Disorders: No Hx Family Autoimmune Disorders: No Internal Medicine - H&P: Meds Atenolol [Tenormin] 25 mg PO DAILY 04/23/15 [History] Escitalopram [Lexapro] 20 mg PO HS 04/23/15 [History] Lamotrigine [Lamictal] 100 mg PO HS 04/23/15 [History] Levothyroxine [Synthroid] 25 mcg PO QAM 04/23/15 [History] Liraglutide [Victoza 2-Aravind] 1.2 mg SQ DAILY 04/23/15 [History] Loxapine Succinate [Loxapine] 10 mg PO HS 04/23/15 [History] Trospium Chloride 20 mg PO HS 04/23/15 [History] Etanercept [Enbrel] 50 mg SQ MO 03/08/16 [History] Folic Acid 1 mg PO DAILY 03/08/16 [History] Pioglitazone [Actos] 45 mg PO DAILY 07/06/16 [History] LORazepam [Ativan] 0.5 mg PO DAILY PRN 10/14/16 [History] Loratadine [Claritin] 10 mg PO DAILY 10/14/16 [History] Multivitamin [Multi-Day Vitamins] 1 tab PO DAILY 10/14/16 [History] Nitroglycerin [Nitrostat] 0.4 mg SL Q5M PRN 10/14/16 [History] Cholecalciferol (Vitamin D3) [Vitamin D3] 4,000 unit PO DAILY 12/25/16 [History] Methotrexate [Otrexup] 15 mg PO TH 12/25/16 [History] Orphenadrine Citrate 100 mg PO HS 04/07/17 [History] SUMAtriptan succinate [Imitrex] 6 mg SQ DAILY PRN 04/07/17 [History] Aspirin [Lo-Dose Aspirin EC] 81 mg PO DAILY 06/05/17 [History] Atorvastatin [Lipitor] 10 mg PO HS 06/05/17 [History] Benztropine [Cogentin] 0.5 mg PO BID 06/05/17 [History] Clopidogrel [Plavix] 75 mg PO DAILY 06/05/17 [History] Famotidine [Pepcid] 40 mg PO BID 06/05/17 [History] Adalimumab [Humira] 40 mg SQ Q2W 06/06/17 [History] Fenofibrate [Tricor] 108 mg PO DAILY 06/06/17 [History] Insulin ASPART [Novolog Flexpen] 2 - 12 unit SQ TIDWM 06/06/17 [History] Insulin Glargine,Hum.rec.anlog [Lantus Solostar] 30 unit SQ HS 06/06/17 [History ] Meloxicam [Mobic] 15 mg PO DAILY 06/06/17 [History] 3 Allergy/AdvReac Type Severity Reaction Status Date / Time diltiazem Allergy See Verified 06/05/17 17:52 Comments adenosine [From Adenocard] AdvReac Hypertensio Verified 06/05/17 17:52 n azithromycin AdvReac Nausea, Verified 06/05/17 17:52 rash diazepam AdvReac See Verified 06/05/17 17:52 Comments duloxetine [From Cymbalta] AdvReac See Verified 06/05/17 17:52 Comments Erythromycin Base AdvReac See Verified 06/05/17 17:52 [From Rolando-Tab] Comments isosorbide [From Imdur] AdvReac Headache Verified 06/05/17 17:52 metformin AdvReac flu like Verified 06/05/17 17:52 symptoms sertraline [From Zoloft] AdvReac "makes me Verified 06/05/17 17:52 cry" Verapamil AdvReac Hypertensio Verified 06/05/17 17:52 n All Systems PM: A 10-system review of systems was performed and is negative for pertinent findings except as documented above in the HPI. - Constitutional Vitals: Temp Pulse Resp BP Pulse Ox 97.5 F L 71 16 150/100 99 06/08/17 03:47 06/08/17 03:47 06/08/17 03:47 06/08/17 03:47 06/08/17 03:47 General appearance: Present: A&O X 3 - Respiratory Respiratory exam: Present: CTAB. Absent: accessory muscle use, rales, rhonchi, wheezes - Cardiovascular Cardiovascular exam: Present: RRR, +S1, +S2. Absent: diastolic murmur, gallop, rubs, systolic murmur - GI/Abdominal GI/Abdominal exam: Present: normal bowel sounds, soft, no peritoneal signs. Absent: distended, tenderness - Extremities Exam Extremities exam: Present: warm, radial pulses palpable and symmetrical. Absent : calf tenderness, cyanotic, pedal edema Additional comments: Right groin area of fullness and and duration tender to palpation. femoral popliteal and dorsalis pedis pulses are strong bilaterally. - Skin Skin exam: Present: dry, intact Internal Med - H&P Results - Labs CBC & Chem 7: 06/08/17 00:15 06/08/17 00:15 - Impressions ITS Impressions Abdomen/Pelvis CTA 06/08/17 23:35 IMPRESSION: There is hemorrhage and edema in the right inguinal region without active arterial extravasation or extension into the retroperitoneum. D/ / Orion Magallon MD / Orion Magallon MD Interpreting Provider: Orion Magallon MD
[2017-06-08] MEDS ORDERED: Nitroglycerin 0.4 MG TAB.SUBL SL PRN (04:29)
[2017-06-08] MEDS ORDERED: *HR* LORazepam 0.5 MG TABLET PO PRN (04:29)
[2017-06-08] MEDS ORDERED: Acetaminophen 325 MG TABLET PO PRN (04:31)
[2017-06-08] MEDS ORDERED: Naloxone 0.4 MG/ML INJ IVP PRN (04:31)
[2017-06-08] MEDS ORDERED: Ondansetron 4 MG/2 ML VIAL IVP PRN (04:31)
[2017-06-08] MEDS ORDERED: *HR* OxyCODONE Immed Rel 5 MG TABLET PO PRN (04:31)
[2017-06-08] MEDS ORDERED: *HR* Dextrose 50 % in Water (Syg) 50 ML SYRINGE IVP PRN (04:34)
[2017-06-08] MEDS ORDERED: D5% in Water 1,000 ML IVC PRN (04:34)
[2017-06-08] MEDS ORDERED: Dextrose Gel 15 GM PO PRN ×2 (04:34)
[2017-06-08] MEDS: *HR* Morphine 2 MG/ML SYRINGE IVP PRN ×3 (05:40→19:02)
[2017-06-08] MEDS: Insulin LISPRO 300 UNITS/3 ML VIAL SQ SCH ×3 (07:30→19:00)
[2017-06-08] MEDS ORDERED: SUMAtriptan 6 MG/0.5 ML SQ PRN (08:44)
--- NOTE | 2017-06-08 09:03 | Cardiology Consult Note ---
<Kiran Berumen - Last Filed: 06/08/17 10:10> Date of Encounter: 06/08/17 Time of Encounter: 09:00 Assessment and Plan (1) Groin hematoma Current Visit: Yes Status: Acute Per Cardiology: S/p C yesterday as outpatient. Discussed with Dr. Hernandez and Dr. Moran, no intervention performed. Presented with R groin hematoma. CT showed: IMPRESSION: There is hemorrhage and edema in the right inguinal region without active arterial extravasation or extension into the retroperitoneum. H&H stable, VSS. Hematoma appears improved after R femoral hematoma massage by parking lot laborer RN. Pain improved. Right DP and PT pulses 2+ palp. No further recs. F/ u with cardiology in 5-7 days, continue with pain management and monitoring. Will s/o, re-consult PRN. Qualifiers: Encounter type: initial encounter Qualified Code(s): S30.1XXA - Contusion of abdominal wall, initial encounter Discussion w patient/family: The assessment and plan as outlined above was discussed with the patient and/or family members who expressed understanding and agreement. All questions were answered. Thank you for involving us in the care of your patient. Please call with any questions. History of Present Illness Consult date: 06/08/17 Requesting physician: Collin Batista Consult reason: R groin hematoma Chief complaint: R groin swelling, soreness History of present illness: Ms. Maldonado is a 52 year old female with a relevant past medical history of hyperlipidemia, hypertension, SVT, hypothyroidism, GERD, DM 2, CAD. Cardiology consult for right groin hematoma status post catheterization yesterday. Patient seen with at bedside. She denies any chest pain, shortness of breath, palpitations. Reports right groin tenderness improved-- reports catheter lab nurse this morning performed massage of hematoma with improvement. She reports she takes aspirin and Plavix at home. Denies any active bleeding or blood loss. Denies any other concerns or complaints at this time. Past Med Surg Social Fam HX - Past Medical History Attestation: Yes The following information was validated with the patient. Source: patient, old records reviewed, obtained from family Medical history: arthritis, asthma, diabetes, GERD, hyperlipidemia, hypertension , migraine, RA, seizures, thyroid disease Psychiatric history: anxiety, bipolar, depression - Past Surgical History Surgical History: angioplasty/stent, breast surgery, cholecystectomy, herniorrhaphy, hip replacement, hysterectomy, orthopedic, other - Social History Smoking Status: Never smoker Smokeless Tobacco Status: No Alcohol use: none Drug use: none - Family History Mother Living Status: Hx Family Cardiac Disorders: Yes (HTN, CHF) Hx Family Respiratory Disorders: Yes (COPD) Hx Family Cancer: Yes (Leukemia) Hx Family GI Disorders: No Hx Family Endocrine Disorder: Yes (Dm2) Hx Family Neuromuscular Disorders: No Hx Family Neurologic Disorders: Yes (CVA) Hx Family HEENT Disorders: No Hx Family Autoimmune Disorders: No Father Living Status: Still Living Hx Family Cardiac Disorders: Yes (HTN) Hx Family Respiratory Disorders: Yes (COPD, emphysema) Hx Family Cancer: Yes (Prostate) Hx Family GI Disorders: No Hx Family Endocrine Disorder: No Hx Family Neuromuscular Disorders: No Hx Family Neurologic Disorders: No Hx Family HEENT Disorders: No Hx Family Autoimmune Disorders: No Medications and Allergies Atenolol [Tenormin] 25 mg PO DAILY 04/23/15 [History] Escitalopram [Lexapro] 20 mg PO HS 04/23/15 [History] Lamotrigine [Lamictal] 100 mg PO HS 04/23/15 [History] Levothyroxine [Synthroid] 25 mcg PO QAM 04/23/15 [History] Liraglutide [Victoza 2-Aravind] 1.2 mg SQ DAILY 04/23/15 [History] Loxapine Succinate [Loxapine] 10 mg PO HS 04/23/15 [History] Trospium Chloride 20 mg PO HS 04/23/15 [History] Etanercept [Enbrel] 50 mg SQ MO 03/08/16 [History] Folic Acid 1 mg PO DAILY 03/08/16 [History] Pioglitazone [Actos] 45 mg PO DAILY 07/06/16 [History] LORazepam [Ativan] 0.5 mg PO DAILY PRN 10/14/16 [History] Loratadine [Claritin] 10 mg PO DAILY 10/14/16 [History] Multivitamin [Multi-Day Vitamins] 1 tab PO DAILY 10/14/16 [History] Nitroglycerin [Nitrostat] 0.4 mg SL Q5M PRN 10/14/16 [History] Cholecalciferol (Vitamin D3) [Vitamin D3] 4,000 unit PO DAILY 12/25/16 [History] Methotrexate [Otrexup] 15 mg PO TH 12/25/16 [History] Orphenadrine Citrate 100 mg PO HS 04/07/17 [History] SUMAtriptan succinate [Imitrex] 6 mg SQ DAILY PRN 04/07/17 [History] Aspirin [Lo-Dose Aspirin EC] 81 mg PO DAILY 06/05/17 [History] Atorvastatin [Lipitor] 10 mg PO HS 06/05/17 [History] Benztropine [Cogentin] 0.5 mg PO BID 06/05/17 [History] Famotidine [Pepcid] 40 mg PO BID 06/05/17 [History] Adalimumab [Humira] 40 mg SQ Q2W 06/06/17 [History] Insulin ASPART [Novolog Flexpen] 2 - 12 unit SQ TIDWM 06/06/17 [History] Insulin Glargine,Hum.rec.anlog [Lantus Solostar] 30 unit SQ HS 06/06/17 [History ] Meloxicam [Mobic] 15 mg PO DAILY 06/06/17 [History] 3 Allergy/AdvReac Type Severity Reaction Status Date / Time diltiazem Allergy See Verified 06/05/17 17:52 Comments adenosine [From Adenocard] AdvReac Hypertensio Verified 06/05/17 17:52 n azithromycin AdvReac Nausea, Verified 06/05/17 17:52 rash diazepam AdvReac See Verified 06/05/17 17:52 Comments duloxetine [From Cymbalta] AdvReac See Verified 06/05/17 17:52 Comments Erythromycin Base AdvReac See Verified 06/05/17 17:52 [From Rolando-Tab] Comments isosorbide [From Imdur] AdvReac Headache Verified 06/05/17 17:52 metformin AdvReac flu like Verified 06/05/17 17:52 symptoms sertraline [From Zoloft] AdvReac "makes me Verified 06/05/17 17:52 cry" Verapamil AdvReac Hypertensio Verified 06/05/17 17:52 n All Systems Review: A 10-system review of systems was performed and is negative for pertinent findings except as documented above in the HPI. - Cardiovascular Cardiovascular: as per HPI - Musculoskeletal Musculoskeletal: other (R groin swelling andf bruising) Physical Examination Vital Signs, Last 4 Hours Pulse Resp BP Pulse Ox 06/08/17 07:00 106 17 148/81 98 General: Conversant, No Apparent Distress HEENT: Atraumatic, Normocephaly, Mucus Membranes Moist Cardiac: Reg Rate and Rhythm, Normal S1 and S2, No Murmur Lungs: Normal Breath Sounds, No Wheeze, Rales, Rhonchi Neuro: Alert and responsive, No focal deficits noted Abdomen: Soft, Non-Tender Skin: No rashes noted on visualized skin Musculoskeletal: No Chest Wall Tenderness Extremities: No Edema, Normal Pulses, Other (Right groin site with no bleeding, mild-moderate ecchymosis, soft hematoma approximately golf-ball sized-- s/p recent hematoma massage by cath RN, does not appear to be enlarged from baseline ) Results 06/08/17 00:15 06/08/17 00:15 Laboratory Tests 06/08/17 00:15 Hgb 12.7 Hct 39.1 Plt Count 228 ITS Impressions Abdomen/Pelvis CTA 06/08/17 23:35 D/ / Orion Magallon MD / Orion Magallon MD Interpreting Provider: Orion Magallon MD Electronically signed by Orion Blount Medications Acetaminophen (Tylenol) 650 mg PO Q6HR PRN PRN Reason: Mild Pain (1-3) Stop: 12/08/17 04:32 Aspirin (Aspirin Ec) 81 mg PO DAILY REJI Stop: 12/08/17 09:01 Atenolol (Tenormin) 25 mg PO DAILY REJI Stop: 12/08/17 09:01 Atorvastatin Calcium (Lipitor) 10 mg PO HS REJI Stop: 12/08/17 21:01 Benztropine Mesylate (Cogentin) 0.5 mg PO BID REJI Stop: 12/08/17 09:01 Dextrose/Water (Dextrose 50% (Syg)) 25 ml IVP AD PRN PRN Reason: Hypoglycemia Stop: 12/08/17 04:35 Escitalopram Oxalate (Lexapro) 20 mg PO HS REJI Stop: 12/08/17 21:01 Famotidine (Pepcid) 40 mg PO BID REJI Stop: 12/08/17 09:01 Glucagon (Glucagen) 1 mg IM ONCE PRN PRN Reason: Hypoglycemia Stop: 12/08/17 04:35 Glucose (Gluctose) 15 gm PO ONCE PRN PRN Reason: Hypoglycemia Stop: 12/08/17 04:35 Glucose (Gluctose) 30 gm PO ONCE PRN PRN Reason: Hypoglycemia Stop: 12/08/17 04:35 Dextrose (Dextrose 5%) 1,000 mls @ 100 mls/hr IVC .Q10H PRN PRN Reason: HYPOGLYCEMIA Stop: 12/08/17 04:35 Insulin Detemir (Levemir) 15 unit SQ BID [facility] Stop: 12/08/17 09:01 Insulin Human Lispro (Humalog) 0 units SQ TIDAC [facility] PRN Reason: Protocol Stop: 12/08/17 07:31 Insulin Human Lispro (Humalog) 0 units SQ HS [facility] PRN Reason: Protocol Stop: 12/08/17 21:01 Lamotrigine (Lamictal) 100 mg PO HS [facility] Stop: 12/08/17 21:01 Levothyroxine Sodium (Synthroid) 25 mcg PO 0630 [facility] Stop: 12/08/17 09:01 Loratadine (Claritin) 10 mg PO DAILY [facility] PRN Reason: Protocol Stop: 12/08/17 09:01 Lorazepam (Ativan) 0.5 mg PO DAILY PRN PRN Reason: Anxiety Stop: 12/08/17 04:30 Morphine Sulfate (Morphine Sulfate) 2 mg IVP Q4HR PRN PRN Reason: Severe Pain (7-10) Stop: 12/08/17 04:32 Last Admin: 06/08/17 05:40 Dose: 2 mg Naloxone HCl (Narcan) 0.4 mg IVP Q2MIN PRN PRN Reason: Opioid Reversal Stop: 12/08/17 04:32 Nitroglycerin (Nitroglycerin) 0.4 mg SL Q5M PRN PRN Reason: Chest Pain Stop: 12/08/17 04:30 Ondansetron HCl (Zofran) 4 mg IVP Q8HR PRN PRN Reason: Nausea And Vomiting Stop: 12/08/17 04:32 Orphenadrine Citrate (Norflex) 100 mg PO HS [facility] Stop: 12/08/17 21:01 Oxybutynin Chloride (Ditropan) 5 mg PO BID [facility] Stop: 12/08/17 21:01 Oxycodone HCl (Roxicodone) 5 mg PO Q6HR PRN PRN Reason: Moderate Pain (4-6) Stop: 12/08/17 04:32 Last Admin: 06/08/17 07:45 Dose: 5 mg Pharmacy Profile Note (Patient Taking Own Medication) 10 each PO HS REJI Stop: 12/08/17 21:01 Sumatriptan Succinate (Imitrex) 6 mg SQ DAILY PRN PRN Reason: Migraine Headache Stop: 12/08/17 08:45 Vitamin D (Vitamin D) 4,000 unit PO DAILY REJI Stop: 12/08/17 09:01 MD jewels on 06/08/2017 00:52:03 - EKG Interpretation EKG results cardiology: personally reviewed, normal ECG, sinus rhythm Consult Discharge Plan - Plan Referrals: Gonzalo Jones DO [Primary Care Provider] - <Loi Hernandez - Last Filed: 06/08/17 11:56> Date of Encounter: 06/08/17 - Attending Attestation I have personally performed a face to face evaluation on this patient. I have reviewed and agree with the care plan. History and Exam by me shows: 52-year- old female status post left heart catheter should any presents with hematoma with no RPH active bleeding on CT scan. Currently improved stable hemodynamics and H&H. Patient follow-up as an outpatient with cardiology in 1-2 weeks. Assessment and Plan Discussion w patient/family: The assessment and plan as outlined above was discussed with the patient and/or family members who expressed understanding and agreement. All questions were answered. Thank you for involving us in the care of your patient. Please call with any questions. History of Present Illness History of present illness: Ms. Maldonado is a 52 year old female All Systems Review: A 10-system review of systems was performed and is negative for pertinent findings except as documented above in the HPI. Physical Examination Vital Signs, Last 4 Hours Temp Pulse Resp BP Pulse Ox 06/08/17 10:51 98.2 F 85 16 146/80 95 Results 06/08/17 00:15 06/08/17 00:15
[2017-06-08] MEDS: Famotidine 20 MG TABLET PO SCH ×2 (10:16→21:07)
[2017-06-08] MEDS: Loratadine 10 MG TABLET PO SCH (10:16)
[2017-06-08] MEDS: Insulin DETEMIR 100 UNIT/ML X5UNITS SQ SCH ×2 (10:24→21:08)
[2017-06-08] MEDS: Levothyroxine 25 MCG TABLET PO SCH (11:38)
[2017-06-08] MEDS: Aspirin Enteric Coated 81 MG Tablet PO SCH (11:39)
[2017-06-08] MEDS: Cholecalciferol (D-3) 1,000 UNIT TABLET PO SCH (11:40)
--- NOTE | 2017-06-08 12:53 | Discharge Summary ---
Date of Encounter: 06/08/17 Time of Encounter: 12:52 - Discharge Diagnosis (1) Groin hematoma Priority: Primary Status: Acute Qualifiers: Encounter type: initial encounter Qualified Code(s): S30.1XXA - Contusion of abdominal wall, initial encounter (2) CAD (coronary artery disease) Priority: Secondary Status: Chronic Qualifiers: Coronary Disease-Associated Artery/Lesion type: [place] artery [place] vs. transplanted heart: [place] heart Associated angina: with unstable angina Qualified Code(s): I25.110 - Atherosclerotic heart disease of [place] coronary artery with unstable angina pectoris (3) Diabetes Priority: Secondary Status: Chronic Qualifiers: Diabetes mellitus type: type 2 Diabetes mellitus complication status: with circulatory complication Diabetes mellitus complication detail: with other circulatory complications Diabetes mellitus watermelon inspector insulin use: with watermelon inspector use Qualified Code(s): E11.59 - Type 2 diabetes mellitus with other circulatory complications; Z79.4 - terminal gauger (current) use of insulin (4) Hypertension Priority: Secondary Status: Acute Qualifiers: Hypertension type: essential hypertension Qualified Code(s): I10 - Essential (primary) hypertension - Discharge Medications Prescriptions: OxyCODONE Immed Rel [Roxicodone 5 MG] 5 mg PO Q6HR PRN #10 tablet PRN Reason: Moderate Pain (4-6) Home Medications: Atenolol [Tenormin] 25 mg PO DAILY 04/23/15 [History] Escitalopram [Lexapro] 20 mg PO HS 04/23/15 [History] Lamotrigine [Lamictal] 100 mg PO HS 04/23/15 [History] Levothyroxine [Synthroid] 25 mcg PO QAM 04/23/15 [History] Liraglutide [Victoza 2-Aravind] 1.2 mg SQ DAILY 04/23/15 [History] Loxapine Succinate [Loxapine] 10 mg PO HS 04/23/15 [History] Trospium Chloride 20 mg PO HS 04/23/15 [History] Etanercept [Enbrel] 50 mg SQ MO 03/08/16 [History] Folic Acid 1 mg PO DAILY 03/08/16 [History] Pioglitazone [Actos] 45 mg PO DAILY 07/06/16 [History] LORazepam [Ativan] 0.5 mg PO DAILY PRN 10/14/16 [History] Loratadine [Claritin] 10 mg PO DAILY 10/14/16 [History] Multivitamin [Multi-Day Vitamins] 1 tab PO DAILY 10/14/16 [History] Nitroglycerin [Nitrostat] 0.4 mg SL Q5M PRN 10/14/16 [History] Cholecalciferol (Vitamin D3) [Vitamin D3] 4,000 unit PO DAILY 12/25/16 [History] Methotrexate [Otrexup] 15 mg PO TH 12/25/16 [History] Orphenadrine Citrate 100 mg PO HS 04/07/17 [History] SUMAtriptan succinate [Imitrex] 6 mg SQ DAILY PRN 04/07/17 [History] Aspirin [Lo-Dose Aspirin EC] 81 mg PO DAILY 06/05/17 [History] Atorvastatin [Lipitor] 10 mg PO HS 06/05/17 [History] Benztropine [Cogentin] 0.5 mg PO BID 06/05/17 [History] Famotidine [Pepcid] 40 mg PO BID 06/05/17 [History] Adalimumab [Humira] 40 mg SQ Q2W 06/06/17 [History] Insulin ASPART [Novolog Flexpen] 2 - 12 unit SQ TIDWM 06/06/17 [History] Insulin Glargine,Hum.rec.anlog [Lantus Solostar] 30 unit SQ HS 06/06/17 [History ] Meloxicam [Mobic] 15 mg PO DAILY 06/06/17 [History] OxyCODONE Immed Rel [Roxicodone 5 MG] 5 mg PO Q6HR PRN #10 tablet 06/08/17 [Rx] Allergies/Adverse Reactions: 3 Allergy/AdvReac Type Severity Reaction Status Date / Time diltiazem Allergy See Verified 06/05/17 17:52 Comments adenosine [From Adenocard] AdvReac Hypertensio Verified 06/05/17 17:52 n azithromycin AdvReac Nausea, Verified 06/05/17 17:52 rash diazepam AdvReac See Verified 06/05/17 17:52 Comments duloxetine [From Cymbalta] AdvReac See Verified 06/05/17 17:52 Comments Erythromycin Base AdvReac See Verified 06/05/17 17:52 [From Rolando-Tab] Comments isosorbide [From Imdur] AdvReac Headache Verified 06/05/17 17:52 metformin AdvReac flu like Verified 06/05/17 17:52 symptoms sertraline [From Zoloft] AdvReac "makes me Verified 06/05/17 17:52 cry" Verapamil AdvReac Hypertensio Verified 06/05/17 17:52 n Date of admission: 06/08/17 02:30 Primary care physician: Gonzalo Jones DO Consults: 06/08/17 04:33 Consult to Physician [CONS] Routine Consulting Provider: Fili Moran Reason for Consult: right groin hematoma Call Completed: Yes Discharging clinician: Eitan Walton Anticipated date of discharge: 06/08/17 - Patient Status Disposition: Home, Self-Care Condition: Good Functional capacity at discharge: independent ambulation Overall status at discharge: patient is progressing back to baseline - Discharge Instructions Instructions: Oxycodone/Acetaminophen (By mouth), Chest Pain (DC), Left Heart Catheterization (DC), Right Heart Catheterization (DC), Diabetes Mellitus Type 2 in Adults (DC), Chronic Hypertension (DC) Follow Up With: Gonzalo Jones DO [Primary Care Provider] - (In 1-2 weeks) Brady Fernández DO [Partnered Physician] - (in 1-2 weeks) - Diet and Activity Activity: increase activity as tolerated Diet: diabetic diet, low fat, low cholesterol, low salt diet Hospital course: Ms. Maldonado is a 52 year old female who recently underwent left heart catheterization came to the ER with complaints of right groin pain. Pain was located at the site of femoral access for her procedure. She said that the pain became very severe and was increasingly sharp and stabbing in nature and radiating to the right thigh. She was evaluated in the ER with a CT angiogram which showed hemorrhage and edema in the right inguinal region without active arterial extravasation or extension into the retroperitoneum. However as the patient continued to have severe pain, she was observed in the hospital. She was treated with intravenous narcotic pain medications and oxycodone to treat her pain. Cardiology evaluated the patient and recommended monitoring her tissue felt better and then discharging her. Her hematoma does not appear to be increasing in size. Cardiac catheterization lab nurse has evaluated the patient and will place a Femstop. She will be discharged once her pain is under control and cardiology clears her discharge. - Time Spent with Patient Total time spent providing and/or coordinating discharge services: Less than 30 minutes (20 min) - Constitutional Vitals: Temp Pulse Resp BP Pulse Ox 98.2 F 85 16 146/80 95 06/08/17 10:51 06/08/17 10:51 06/08/17 10:51 06/08/17 10:51 06/08/17 10:51 General appearance: Present: cooperative, A&O X 3, pleasant, obese, answers questions appropriately - Neck Neck exam general surgery: Present: supple, trachea midline. Absent: lymphadenopathy - Respiratory Respiratory exam: Present: CTAB. Absent: accessory muscle use, rales, rhonchi, wheezes - Cardiovascular Cardiovascular exam: Present: RRR, +S1, +S2. Absent: diastolic murmur, gallop, rubs, systolic murmur - GI/Abdominal GI/Abdominal exam: Present: normal bowel sounds, soft, no peritoneal signs. Absent: distended, tenderness - Extremities Exam Extremities exam: Present: warm, radial pulses palpable and symmetrical. Absent : calf tenderness, cyanotic, pedal edema Additional comments: Ecchymosis noted at right inguinal region at site of recent femoral access. Tender to palpation. Pressure bandage in place. - Skin Skin exam: Present: dry, intact
[2017-06-08] MEDS ORDERED: Loxapine Succinate [Loxapine] 10 MG PO SCH (21:00)
[2017-06-08] MEDS ORDERED: Insulin LISPRO 300 UNITS/3 ML VIAL SQ SCH (21:00)
[2017-06-08] MEDS ORDERED: lamoTRIgine 100 MG TABLET PO SCH (21:00)
[2017-06-08] MEDS ORDERED: Orphenadrine 100 MG TABLET.ER PO SCH (21:00)
[2017-06-09] MEDS: *HR* Morphine 2 MG/ML SYRINGE IVP PRN (00:15)
[2017-06-09 04:31] LABS: Basophils % 0.2 %; Eosinophils # 0.2 K/mcL (0.0-0.6); Eosinophils % 3.5 %; Hematocrit 36.6 % (35.3-44.9); Hemoglobin 11.6 g/dL (11.5-15.4); Immature Granulocytes % 0.3 % (0-4); Lymphocytes # 2.1 K/mcL (0.6-4.6); Mean Corpuscular HGB Conc 31.7 g/dL (31.6-35.5); Mean Corpuscular Hemoglobin 31.4 pg (28.0-33.3); Mean Corpuscular Volume 99.2 fL (83.0-100.0); Mean Platelet Volume 9.7 fL (9.4-12.4); Monocytes # 0.5 K/mcL (0.0-1.3); Monocytes % 8.1 %; Neutrophils # 3.2 K/mcL (1.6-8.9); Platelet Count 183 K/mcL (140-400); Red Blood Count 3.69 M/mcL (3.82-4.97); Red Cell Distribution Width 14.2 % (11.5-14.5); Segmented Neutrophils % 52.9 %
[2017-06-09 04:46] LABS: BUN/Creatinine Ratio 15 (6-26); Blood Urea Nitrogen 13 mg/dL (7-20); Calcium 8.8 mg/dL (8.6-10.8); Carbon Dioxide 22 mEq/L (19-29); Chloride 106 mEq/L (98-109); Glucose 168 mg/dL (70-99); Osmolality,Calculated 290 (280-300); Potassium 3.9 mEq/L (3.5-4.5); Sodium 138 mEq/L (136-145); eGFR For African Americans > 60 (> 60); eGFR For Non-African Americans > 60 (> 60)
[2017-06-09] MEDS: Levothyroxine 25 MCG TABLET PO SCH (05:54)
--- NOTE | 2017-06-09 07:51 | Event Note ---
Date of Encounter: 06/09/17 Time of Encounter: 07:45 (late entry for 06/08/17 at 530pm) - Cardiology Event Note Patient seen yesterday evening with increased right groin pain. Travel Clerk nurse at bedside providing massage and pressure. Patient discussed with primary service and Dr. Hernandez, per Dr. Hernandez, recs to delay DC and monitor overnight. R groain with moderate ecchymosis, no active bleeding, pulses 2+ palp.
[2017-06-09] MEDS: Cholecalciferol (D-3) 1,000 UNIT TABLET PO SCH (09:24)
[2017-06-09] MEDS: Loratadine 10 MG TABLET PO SCH (09:25)
[2017-06-09] MEDS: Aspirin Enteric Coated 81 MG Tablet PO SCH (09:25)
[2017-06-09] MEDS: Famotidine 20 MG TABLET PO SCH (09:25)
[2017-06-09] MEDS: Insulin DETEMIR 100 UNIT/ML X5UNITS SQ SCH (09:33)
[2017-06-09] MEDS: Insulin LISPRO 300 UNITS/3 ML VIAL SQ SCH (09:33)
[2017-06-09 11:49] VITALS: BP 137/54
== END 2017-06-09 13:19 | disposition home or self-care (01) ==
LOC: EMEROO 23:10 → 2NENU 23:10 → SUATTDRO 06-08 02:30 → 2NENU 06-08 03:13
PROVIDERS: ADMIT Internal Medicine; ATTEND Internal Medicine

== ENCOUNTER 2020-02-03 20:47 | Inpatient (IN) ==
[2020-02-03] MEDS ORDERED: *HR* LORazepam 1 MG TABLET PO ONE (21:09)
[2020-02-03 21:22] LABS: Bacteria,Urine Few per hpf (None-Few); Bilirubin,Urine Negative (Negative); Blood,Urine Negative (Negative); Clarity,Urine Clear (Clear); Color,Urine Colorless (Yellow); Glucose,Urine (UA) 70 mg/dL (Normal); Ketones,Urine Negative (Negative); Leukocyte Esterase,Urine Small (Negative); Mucus,Urine Few per lpf (None-Few); Nitrite,Urine Negative (Negative); Protein,Urine Negative (Neg-Trace); RBC,Urine 0-3 per hpf (0-3); Renal Epithelial Cells,Urine Few per hpf (None-Few); Specific Gravity,Urine < 1.005 (1.010-1.025); Urobilinogen,Urine Normal (Normal); WBC,Urine 0-3 per hpf (0-3)
[2020-02-03 21:29] LABS: Amphetamine Screen,Urine Negative ng/mL (Cutoff=1000); Barbiturate Screen,Urine Negative ng/mL (Cutoff=200); Benzodiazepines Screen,Urine Negative ng/mL (Cutoff=200); Cannabinoid Screen,Urine Negative ng/mL (Cutoff = 50); Cocaine Screen,Urine Negative ng/mL (Cutoff= 300); Opiate Screen,Urine Negative ng/mL (Cutoff=300); Phencyclidine Screen,Urine Negative ng/mL (Cutoff=25)
[2020-02-03 21:37] LABS: Basophils % 0.5 %; Eosinophils # 0.2 K/mcL (0.0-0.6); Hematocrit 41.7 % (35.3-44.9); Hemoglobin 12.8 g/dL (11.5-15.4); Immature Granulocytes % 0.2 % (0-4); Lymphocytes # 3.2 K/mcL (0.6-4.6); Lymphocytes % 53.7 %; Mean Corpuscular HGB Conc 30.7 g/dL (31.6-35.5); Mean Corpuscular Hemoglobin 27.6 pg (28.0-33.3); Mean Corpuscular Volume 89.9 fL (83.0-100.0); Monocytes # 0.4 K/mcL (0.0-1.3); Neutrophils # 2.2 K/mcL (1.6-8.9); Platelet Count 248 K/mcL (140-400); Red Blood Count 4.64 M/mcL (3.82-4.97); Red Cell Distribution Width 14.2 % (11.5-14.5); Segmented Neutrophils % 35.6 %
[2020-02-03 21:42] LABS: Estimated Average Glucose 154 mg/dl
[2020-02-03] MEDS ORDERED: HydrOXYzine 100 MG/2 ML VIAL IM ONE (22:47)
[2020-02-03 22:59] LABS: Thyroid Stimulating Hormone 1.216 mcIU/mL (0.340-5.600)
[2020-02-03 23:09] LABS: Acetaminophen < 10 mcg/mL (10-20); BUN/Creatinine Ratio 16 (6-26); Blood Urea Nitrogen 14 mg/dL (6-20); Calcium 8.7 mg/dL (8.6-10.3); Carbon Dioxide 18 mEq/L (23-29); Chloride 111 mEq/L (98-107); Chol/HDL Ratio 2.6 (0-4.9); Cholesterol 134 mg/dL (< 200); Ethanol < 10 mg/dL (Less than 10); Glucose 57 mg/dL (70-105); HDL Cholesterol 52 mg/dL (40-59); LDL Cholesterol,Calculated 45 mg/dL (< 100); Osmolality,Calculated 292 (280-300); Potassium 3.5 mEq/L (3.5-5.1); Salicylate < 2.5 mg/dL (15.0-30.0); Sodium 142 mEq/L (136-145); Triglycerides 184 mg/dL (< 150); eGFR For African Americans > 60 (> 60); eGFR For Non-African Americans > 60 (> 60)
[2020-02-04] MEDS ORDERED: Haloperidol Lactate 5 MG/ML VIAL IM PRN (01:25)
[2020-02-04] MEDS ORDERED: haloperidoL 5 MG TABLET PO PRN (01:25)
[2020-02-04] MEDS ORDERED: MOM Conc 10 ML UD.LIQ PO PRN (01:25)
[2020-02-04] MEDS ORDERED: *HR* LORazepam 1 MG TABLET PO PRN (01:25)
[2020-02-04] MEDS ORDERED: Mag Hydrox/Al Hydrox/Simeth 30 ML UDC PO PRN (01:25)
[2020-02-04] MEDS ORDERED: *HR* LORazepam 2 MG/ML VIAL IM PRN (01:25)
[2020-02-04] MEDS ORDERED: Nitroglycerin 0.4 MG TAB.SUBL SL PRN (01:51)
[2020-02-04] MEDS ORDERED: tiZANidine 4 MG TABLET PO PRN (01:56)
[2020-02-04] MEDS: traZODone 50 MG TABLET PO PRN ×3 (03:01→23:39)
[2020-02-04] MEDS: hydrOXYzine pamoate 25 MG CAPSULE PO PRN ×3 (03:01→23:39)
[2020-02-04] MEDS: lamoTRIgine 100 MG TABLET PO SCH ×2 (03:01→20:34)
[2020-02-04] MEDS: carvediloL 6.25 MG TABLET PO SCH ×2 (09:00→16:55)
[2020-02-04] MEDS: Aspirin 81 MG TAB.CHEW PO SCH (09:00)
[2020-02-04] MEDS: Gabapentin 300 MG CAPSULE PO SCH ×3 (09:00→20:33)
[2020-02-04] MEDS ORDERED: Celecoxib 200 MG CAPSULE PO SCH (09:00)
[2020-02-04] MEDS: Ranolazine 500 MG TAB.ER.12H PO SCH ×2 (09:45→20:33)
[2020-02-04] MEDS: Isosorbide MONOnitrate (24 HR) 60 MG TAB.ER.24H PO SCH (09:45)
[2020-02-04] MEDS: *HR* Ticagrelor 90 MG TABLET PO SCH ×2 (09:45→20:34)
[2020-02-04] MEDS: *HR* Glimepiride 2 MG TABLET PO SCH (09:45)
[2020-02-04] MEDS: BuPROPion XL (24 HR) 150 MG TABLET PO SCH (12:57)
[2020-02-04] MEDS: Acetaminophen 325 MG TABLET PO PRN (16:56)
[2020-02-04] MEDS ORDERED: lamoTRIgine 100 MG TABLET PO SCH (21:00)
[2020-02-05] MEDS: carvediloL 6.25 MG TABLET PO SCH ×2 (07:54→17:07)
[2020-02-05] MEDS: *HR* Glimepiride 2 MG TABLET PO SCH (07:54)
[2020-02-05] MEDS: Aspirin 81 MG TAB.CHEW PO SCH (08:37)
[2020-02-05] MEDS: Isosorbide MONOnitrate (24 HR) 60 MG TAB.ER.24H PO SCH (08:38)
[2020-02-05] MEDS: BuPROPion XL (24 HR) 150 MG TABLET PO SCH (08:38)
[2020-02-05] MEDS: Gabapentin 300 MG CAPSULE PO SCH (08:38)
[2020-02-05] MEDS: Ranolazine 500 MG TAB.ER.12H PO SCH ×2 (08:38→20:42)
[2020-02-05] MEDS: *HR* Ticagrelor 90 MG TABLET PO SCH ×2 (08:39→20:42)
[2020-02-05] MEDS ORDERED: Gabapentin 300 MG CAPSULE PO SCH (10:00)
[2020-02-05] MEDS: hydrOXYzine pamoate 25 MG CAPSULE PO PRN (12:39)
[2020-02-05] MEDS: Acetaminophen 325 MG TABLET PO PRN ×2 (13:48→20:41)
[2020-02-05] MEDS: Gabapentin 100 MG CAPSULE PO SCH ×2 (15:01→20:42)
[2020-02-05] MEDS: lamoTRIgine 100 MG TABLET PO SCH (20:42)
[2020-02-05] MEDS ORDERED: traZODone 50 MG TABLET PO SCH (21:00)
[2020-02-06] MEDS: miSOPROStoL 100 MCG TABLET PO SCH ×2 (00:40→08:42)
[2020-02-06] MEDS: carvediloL 6.25 MG TABLET PO SCH (08:42)
[2020-02-06] MEDS: Isosorbide MONOnitrate (24 HR) 60 MG TAB.ER.24H PO SCH (08:42)
[2020-02-06] MEDS: Aspirin 81 MG TAB.CHEW PO SCH (08:43)
[2020-02-06] MEDS: *HR* Ticagrelor 90 MG TABLET PO SCH (08:43)
[2020-02-06] MEDS: BuPROPion XL (24 HR) 150 MG TABLET PO SCH (08:43)
[2020-02-06] MEDS: Ranolazine 500 MG TAB.ER.12H PO SCH (08:43)
[2020-02-06] MEDS: Gabapentin 100 MG CAPSULE PO SCH (08:44)
[2020-02-06] MEDS: *HR* Glimepiride 2 MG TABLET PO SCH (08:44)
[2020-02-06 09:38] VITALS: BP 88/52
== END 2020-02-06 11:05 | disposition home or self-care (01) | DRG 885 ==
LOC: EMEROOARM 20:47 → SUATTDRO 02-04 00:55 → 1ANU 02-04 00:55
PROVIDERS: ADMIT Psychiatry & Neurology Psychiatry; ATTEND Psychiatry & Neurology Psychiatry

== ENCOUNTER 2020-10-28 16:38 | Observation (INO) ==
[2020-10-28] MEDS ORDERED: *HR* FentaNYL (PF) 100 MCG/2 ML VIAL IVP ONE (18:01)
[2020-10-28 18:16] LABS: Red Cell Distribution Width 17.2 % (11.5-14.5)
[2020-10-28 18:18] LABS: Basophils % 0.3 %; Eosinophils # 0.1 K/mcL (0.0-0.6); Eosinophils % 1.9 %; Hematocrit 35.7 % (35.3-44.9); Immature Granulocytes % 0.3 % (0-4); Lymphocytes # 2.3 K/mcL (0.6-4.6); Lymphocytes % 31.4 %; Mean Corpuscular Hemoglobin 21.9 pg (28.0-33.3); Mean Corpuscular Volume 78.1 fL (83.0-100.0); Mean Platelet Volume 9.7 fL (9.4-12.4); Monocytes # 0.4 K/mcL (0.0-1.3); Monocytes % 6.1 %; Nucleated Red Blood Cells 0.3 /100 WBC (0); Platelet Count 357 K/mcL (140-400); Red Blood Count 4.57 M/mcL (3.82-4.97); White Blood Count 7.2 K/mcL (4.3-11.1)
[2020-10-28 18:21] LABS: Neutrophils # 4.3 K/mcL (1.6-8.9)
[2020-10-28 18:34] LABS: Anisocytosis 1+ (Not Present); Hypochromasia Present (Not Present); Platelet Estimate Normal (Normal)
[2020-10-28 18:36] LABS: BUN/Creatinine Ratio 23 (6-26); Blood Urea Nitrogen 23 mg/dL (6-20); C-Reactive Protein < 5 mg/L (Less than 10); Carbon Dioxide 22 mEq/L (23-29); Chloride 104 mEq/L (98-107); Glucose 168 mg/dL (70-105); Osmolality,Calculated 296 (280-300); Potassium 3.2 mEq/L (3.5-5.1); Sodium 139 mEq/L (136-145); eGFR For African Americans > 60 (> 60); eGFR For Non-African Americans 59 (> 60)
[2020-10-28] MEDS ORDERED: *HR* LORazepam 2 MG/ML VIAL IVP ONE (20:20)
[2020-10-28] MEDS ORDERED: Morphine Sulfate 2 MG/ML SYRINGE IVP ONE (21:29)
[2020-10-28] MEDS ORDERED: Melatonin 3 MG TABLET PO PRN (23:30)
[2020-10-28] MEDS ORDERED: Ondansetron 4 MG/2 ML VIAL IVP PRN (23:30)
[2020-10-28] MEDS ORDERED: Naloxone 0.4 MG/ML INJ IVP PRN (23:30)
[2020-10-29] MEDS ORDERED: Dextrose Gel 15 GM/37.5 ML TUBE PO PRN ×2 (00:12)
[2020-10-29] MEDS ORDERED: D5% in Water 1,000 ML IVC PRN (00:12)
[2020-10-29] MEDS ORDERED: *HR* Dextrose 50 % in Water (Vial) 50 ML VIAL IVP PRN (00:12)
[2020-10-29] MEDS: Gabapentin 300 MG CAPSULE PO SCH ×4 (00:35→19:38)
[2020-10-29] MEDS: lamoTRIgine 100 MG TABLET PO SCH ×2 (00:35→19:38)
[2020-10-29] MEDS: tiZANidine 4 MG TABLET PO PRN ×2 (00:35→15:06)
[2020-10-29] MEDS: Morphine Sulfate 2 MG/ML SYRINGE IVP PRN ×4 (00:36→08:30)
[2020-10-29] MEDS ORDERED: Potassium Chloride 40 MEQ, Lidocaine 1% 2 ML in 0.9 % Sodium Chloride 500 ML IVPB ONE (05:45)
[2020-10-29 06:08] LABS: Basophils % 0.4 %; Eosinophils # 0.1 K/mcL (0.0-0.6); Eosinophils % 2.3 %; Hematocrit 29.3 % (35.3-44.9); Hemoglobin 8.3 g/dL (11.5-15.4); Immature Granulocytes % 0.4 % (0-4); Lymphocytes # 2.1 K/mcL (0.6-4.6); Lymphocytes % 36.2 %; Mean Corpuscular HGB Conc 28.3 g/dL (31.6-35.5); Mean Corpuscular Volume 77.7 fL (83.0-100.0); Mean Platelet Volume 9.4 fL (9.4-12.4); Monocytes # 0.4 K/mcL (0.0-1.3); Monocytes % 6.5 %; Neutrophils # 3.1 K/mcL (1.6-8.9); Platelet Count 255 K/mcL (140-400); Red Blood Count 3.77 M/mcL (3.82-4.97); Red Cell Distribution Width 17.2 % (11.5-14.5); Segmented Neutrophils % 54.2 %; White Blood Count 5.7 K/mcL (4.3-11.1)
[2020-10-29 06:36] LABS: Alanine Aminotransferase 22 Units/L (7-52); Albumin 3.7 g/dL (3.5-5.7); Albumin/Globulin Ratio 1.5 (1.1-2.2); Alkaline Phosphatase 177 Units/L (34-104); Aspartate Amino Transferase 44 Units/L (13-39); BUN/Creatinine Ratio 24 (6-26); Bilirubin,Total 0.3 mg/dL (0.3-1.0); Blood Urea Nitrogen 18 mg/dL (6-20); Calcium 8.5 mg/dL (8.6-10.3); Carbon Dioxide 24 mEq/L (23-29); Chloride 105 mEq/L (98-107); Globulin 2.5 g/dL (2.4-3.5); Glucose 211 mg/dL (70-105); Osmolality,Calculated 292 (280-300); Potassium 3.6 mEq/L (3.5-5.1); Sodium 137 mEq/L (136-145); Total Protein 6.2 g/dL (6.4-8.9); eGFR For African Americans > 60 (> 60); eGFR For Non-African Americans > 60 (> 60)
[2020-10-29 06:45] LABS: Anisocytosis 1+ (Not Present); Platelet Estimate Normal (Normal); Polychromasia 1+ (Not Present)
[2020-10-29] MEDS: miSOPROStoL 100 MCG TABLET PO SCH ×4 (08:29→19:38)
[2020-10-29] MEDS: Insulin LISPRO 300 UNITS/3 ML VIAL SUBQ SCH ×3 (08:31→16:05)
[2020-10-29] MEDS: amLODIPine 5 MG TABLET PO SCH (10:06)
[2020-10-29] MEDS: carvediloL 25 MG TABLET PO SCH ×2 (10:06→16:01)
[2020-10-29] MEDS: Acetaminophen 325 MG TABLET PO PRN ×2 (10:06→21:38)
[2020-10-29] MEDS: *HR* Ticagrelor 90 MG TABLET PO SCH ×2 (10:06→19:39)
[2020-10-29] MEDS: Aspirin 81 MG TAB.CHEW PO SCH ×2 (10:06→19:38)
[2020-10-29] MEDS ORDERED: Isovue-370 500 ML BOTTLE IVP ONE (10:39)
[2020-10-29 11:18] LABS: Hematocrit 34.2 % (35.3-44.9); Hemoglobin 9.7 g/dL (11.5-15.4)
[2020-10-29] MEDS ORDERED: *HR* OxyCODONE Immed Rel 5 MG TABLET PO PRN (11:35)
[2020-10-29 11:45] LABS: % Iron Saturation 6 % (15-50); Iron 29 mcg/dL (50-170); Transferrin 373 mg/dL (203-362)
[2020-10-29 11:57] LABS: Ferritin 12 ng/mL (10-120)
[2020-10-29 12:03] LABS: Folate 14.1 ng/mL (3.0-16.0)
[2020-10-29] MEDS ORDERED: Iron Sucrose Complex 400 MG in 0.9 % Sodium Chloride 250 ML IVPB ONE (12:07)
[2020-10-29] MEDS ORDERED: Cyanocobalamin (B-12) 1,000 MCG/ML VIAL SQ ONE (12:08)
[2020-10-29] MEDS ORDERED: Morphine Sulfate 2 MG/ML SYRINGE IVP PRN (12:10)
[2020-10-29] MEDS: Sennosides/Docusate Sodium TABLET PO SCH ×2 (13:33→19:37)
[2020-10-29] MEDS: *HR* OxyCODONE Immed Rel 5 MG TABLET PO PRN ×2 (16:01→20:15)
[2020-10-29] MEDS: *HR* Heparin 5,000 UNIT/ML VIAL SQ SCH (16:05)
[2020-10-29] MEDS ORDERED: Insulin LISPRO 300 UNITS/3 ML VIAL SUBQ SCH (21:00)
[2020-10-30] MEDS: *HR* OxyCODONE Immed Rel 5 MG TABLET PO PRN ×2 (02:32→08:57)
[2020-10-30] MEDS: *HR* Heparin 5,000 UNIT/ML VIAL SQ SCH (05:12)
[2020-10-30 06:18] LABS: Basophils % 0.4 %; Mean Corpuscular HGB Conc 28.5 g/dL (31.6-35.5); Mean Platelet Volume 9.8 fL (9.4-12.4)
[2020-10-30 06:20] LABS: Eosinophils # 0.2 K/mcL (0.0-0.6); Eosinophils % 3.2 %; Hematocrit 28.4 % (35.3-44.9); Hemoglobin 8.1 g/dL (11.5-15.4); Immature Granulocytes % 0.6 % (0-4); Lymphocytes # 1.6 K/mcL (0.6-4.6); Lymphocytes % 29.6 %; Mean Corpuscular Hemoglobin 21.5 pg (28.0-33.3); Mean Corpuscular Volume 75.3 fL (83.0-100.0); Monocytes # 0.5 K/mcL (0.0-1.3); Monocytes % 8.4 %; Neutrophils # 3.1 K/mcL (1.6-8.9); Platelet Count 283 K/mcL (140-400); Red Blood Count 3.77 M/mcL (3.82-4.97); Red Cell Distribution Width 17.2 % (11.5-14.5); Segmented Neutrophils % 57.8 %; White Blood Count 5.4 K/mcL (4.3-11.1)
[2020-10-30 06:46] LABS: BUN/Creatinine Ratio 18 (6-26); Blood Urea Nitrogen 13 mg/dL (6-20); Calcium 8.6 mg/dL (8.6-10.3); Carbon Dioxide 24 mEq/L (23-29); Chloride 108 mEq/L (98-107); Glucose 118 mg/dL (70-105); Magnesium 1.9 mg/dL (1.6-2.6); Osmolality,Calculated 289 (280-300); Phosphorous 4.3 mg/dL (2.7-4.5); Potassium 3.8 mEq/L (3.5-5.1); Sodium 139 mEq/L (136-145); eGFR For African Americans > 60 (> 60); eGFR For Non-African Americans > 60 (> 60)
[2020-10-30 07:10] LABS: Anisocytosis 1+ (Not Present); Hypochromasia Present (Not Present); Platelet Estimate Normal (Normal)
[2020-10-30] MEDS: Insulin LISPRO 300 UNITS/3 ML VIAL SUBQ SCH (07:56)
[2020-10-30] MEDS ORDERED: Levothyroxine 25 MCG TABLET PO SCH (08:33)
[2020-10-30] MEDS ORDERED: Cyanocobalamin (B-12) 1,000 MCG/ML VIAL SQ ONE (08:34)
[2020-10-30] MEDS: Gabapentin 300 MG CAPSULE PO SCH (08:55)
[2020-10-30] MEDS: Sennosides/Docusate Sodium TABLET PO SCH (08:56)
[2020-10-30] MEDS: Aspirin 81 MG TAB.CHEW PO SCH (08:56)
[2020-10-30] MEDS: carvediloL 25 MG TABLET PO SCH (08:56)
[2020-10-30] MEDS: *HR* Ticagrelor 90 MG TABLET PO SCH (08:56)
[2020-10-30] MEDS: amLODIPine 5 MG TABLET PO SCH (08:57)
[2020-10-30] MEDS: miSOPROStoL 100 MCG TABLET PO SCH (08:57)
[2020-10-30] MEDS ORDERED: Cyanocobalamin (B-12) 1,000 MCG TABLET PO SCH (09:00)
[2020-10-30] MEDS ORDERED: Furosemide 40 MG TABLET PO SCH (09:00)
[2020-10-30 10:15] LABS: Hematocrit 30.5 % (35.3-44.9); Hemoglobin 8.5 g/dL (11.5-15.4)
[2020-10-30 10:29] VITALS: BP 118/72
[2020-10-31] MEDS ORDERED: Cyanocobalamin (B-12) 1,000 MCG TABLET PO SCH (09:00)
== END 2020-10-30 11:53 | disposition home or self-care (01) ==
LOC: 3BNU 16:38 → EMEROOARM 16:38 → SUATTDRO 22:53 → 3BNU 23:30
PROVIDERS: ADMIT Internal Medicine; ATTEND Internal Medicine

== ENCOUNTER 2021-01-20 05:21 | Observation (INO) ==
[2021-01-20] MEDS ORDERED: *HR* FentaNYL (PF) 100 MCG/2 ML VIAL IVP ONE ×2 (06:02→07:34)
[2021-01-20 06:03] LABS: Basophils % 0.6 %; Eosinophils # 0.1 K/mcL (0.0-0.6); Eosinophils % 1.7 %; Hematocrit 42.4 % (35.3-44.9); Immature Granulocytes % 0.4 % (0-4); Lymphocytes # 2.7 K/mcL (0.6-4.6); Lymphocytes % 50.8 %; Mean Corpuscular HGB Conc 30.7 g/dL (31.6-35.5); Mean Corpuscular Hemoglobin 26.8 pg (28.0-33.3); Mean Corpuscular Volume 87.4 fL (83.0-100.0); Mean Platelet Volume 9.8 fL (9.4-12.4); Monocytes # 0.4 K/mcL (0.0-1.3); Monocytes % 7.2 %; Neutrophils # 2.1 K/mcL (1.6-8.9); Platelet Count 209 K/mcL (140-400); Red Blood Count 4.85 M/mcL (3.82-4.97); Red Cell Distribution Width 16.8 % (11.5-14.5); Segmented Neutrophils % 39.3 %; White Blood Count 5.3 K/mcL (4.3-11.1)
[2021-01-20 06:30] LABS: INR 0.9; Prothrombin Time 10.8 Seconds (9.4-12.1)
[2021-01-20 06:32] LABS: Activated Partial Thrombo Time 29.1 Seconds (26.0-36.0)
[2021-01-20 06:35] LABS: BUN/Creatinine Ratio 13 (6-26); Blood Urea Nitrogen 11 mg/dL (6-20); Calcium 9.2 mg/dL (8.6-10.3); Carbon Dioxide 24 mEq/L (23-29); Chloride 108 mEq/L (98-107); Glucose 190 mg/dL (70-105); Osmolality,Calculated 296 (280-300); Sodium 141 mEq/L (136-145); Troponin I < 0.03 ng/mL (< 0.04); eGFR For African Americans > 60 (> 60); eGFR For Non-African Americans > 60 (> 60)
[2021-01-20] MEDS ORDERED: Acetaminophen 325 MG TABLET PO PRN (08:18)
[2021-01-20] MEDS ORDERED: Naloxone 0.4 MG/ML INJ IVP PRN (08:18)
[2021-01-20] MEDS ORDERED: Melatonin 3 MG TABLET PO PRN (08:18)
[2021-01-20] MEDS ORDERED: Ondansetron 4 MG/2 ML VIAL IVP PRN (08:18)
[2021-01-20] MEDS ORDERED: *HR* Dextrose 50 % in Water (Vial) 50 ML VIAL IVP PRN (08:21)
[2021-01-20] MEDS ORDERED: D5% in Water 1,000 ML IVC PRN (08:21)
[2021-01-20] MEDS ORDERED: Dextrose Gel 15 GM/37.5 ML TUBE PO PRN ×2 (08:21)
[2021-01-20] MEDS ORDERED: Nitroglycerin 0.4 MG TAB.SUBL SL PRN (08:32)
[2021-01-20] MEDS: Furosemide 40 MG TABLET PO SCH ×2 (10:18→21:15)
[2021-01-20] MEDS: Aspirin 81 MG TAB.CHEW PO SCH ×2 (10:18→21:15)
[2021-01-20] MEDS: Gabapentin 300 MG CAPSULE PO SCH ×3 (10:18→21:15)
[2021-01-20] MEDS: carvediloL 25 MG TABLET PO SCH ×2 (10:19→21:15)
[2021-01-20] MEDS: *HR* Ticagrelor 90 MG TABLET PO SCH ×2 (10:22→21:15)
[2021-01-20] MEDS: Insulin LISPRO 300 UNITS/3 ML VIAL SUBQ SCH ×2 (12:14→16:27)
[2021-01-20] MEDS: *HR* OxyCODONE Immed Rel 5 MG TABLET PO PRN ×2 (13:13→18:51)
[2021-01-20] MEDS ORDERED: Morphine Sulfate 2 MG/ML SYRINGE IVP ONE (19:54)
[2021-01-20] MEDS ORDERED: Nitroglycerin 1 INCH/GM PACKET TP ONE (20:59)
[2021-01-20] MEDS ORDERED: tiZANidine 4 MG TABLET PO SCH (21:00)
[2021-01-20] MEDS ORDERED: Insulin LISPRO 300 UNITS/3 ML VIAL SUBQ SCH (21:00)
[2021-01-20] MEDS ORDERED: lamoTRIgine 100 MG TABLET PO SCH (21:00)
[2021-01-20] MEDS ORDERED: 0.9 % Sodium Chloride 500 ML IVC ONE (22:10)
[2021-01-20] MEDS ORDERED: 0.9 % Sodium Chloride 500 ML ONE (22:13)
[2021-01-21] MEDS ORDERED: Regadenoson 0.4 MG/5 ML SYRINGE IVP ONE (06:24)
[2021-01-21] MEDS ORDERED: Levothyroxine 25 MCG TABLET PO SCH (06:30)
[2021-01-21 07:05] LABS: Hematocrit 42.6 % (35.3-44.9); Hemoglobin 13.2 g/dL (11.5-15.4); Mean Corpuscular Hemoglobin 26.6 pg (28.0-33.3); Mean Corpuscular Volume 85.9 fL (83.0-100.0); Mean Platelet Volume 9.6 fL (9.4-12.4); Platelet Count 202 K/mcL (140-400); Red Blood Count 4.96 M/mcL (3.82-4.97); Red Cell Distribution Width 16.6 % (11.5-14.5); White Blood Count 4.4 K/mcL (4.3-11.1)
[2021-01-21 08:21] LABS: BUN/Creatinine Ratio 18 (6-26); Blood Urea Nitrogen 16 mg/dL (6-20); Calcium 8.5 mg/dL (8.6-10.3); Carbon Dioxide 27 mEq/L (23-29); Chloride 99 mEq/L (98-107); Glucose 205 mg/dL (70-105); Osmolality,Calculated 293 (280-300); Potassium 3.6 mEq/L (3.5-5.1); Sodium 138 mEq/L (136-145); Troponin I < 0.03 ng/mL (< 0.04); eGFR For African Americans > 60 (> 60); eGFR For Non-African Americans > 60 (> 60)
[2021-01-21] MEDS ORDERED: amLODIPine 5 MG TABLET PO SCH (09:00)
[2021-01-21] MEDS ORDERED: *HR* OxyCODONE Immed Rel 5 MG TABLET PO PRN (09:10)
[2021-01-21 09:17] LABS: Chol/HDL Ratio 2.8 (0-4.9); Cholesterol 164 mg/dL (< 200); HDL Cholesterol 58 mg/dL (40-59); LDL Cholesterol,Calculated 83 mg/dL (< 100); Triglycerides 114 mg/dL (< 150)
[2021-01-21] MEDS: Aspirin 81 MG TAB.CHEW PO SCH (09:41)
[2021-01-21] MEDS: *HR* Ticagrelor 90 MG TABLET PO SCH (09:41)
[2021-01-21] MEDS: Furosemide 40 MG TABLET PO SCH (09:42)
[2021-01-21] MEDS: carvediloL 25 MG TABLET PO SCH (09:43)
[2021-01-21] MEDS: Gabapentin 300 MG CAPSULE PO SCH (09:43)
[2021-01-21] MEDS: Insulin LISPRO 300 UNITS/3 ML VIAL SUBQ SCH ×3 (09:44→12:03)
[2021-01-21 10:40] LABS: Estimated Average Glucose 235 mg/dl; Hemoglobin A1C 9.8 %
[2021-01-21 11:46] VITALS: BP 124/83; PULSE 85; TEMP 98.5; O2SAT 95
[2021-01-21] MEDS ORDERED: Ranolazine 500 MG TAB.ER.12H PO SCH (13:00)
[2021-01-22] MEDS ORDERED: amLODIPine 5 MG TABLET PO SCH (09:00)
== END 2021-01-21 13:55 | disposition home or self-care (01) ==
LOC: 3BNU 05:21 → EMEROOARM 05:21 → SUATTDRO 08:26 → 3BNU 10:03
PROVIDERS: ADMIT Internal Medicine; ATTEND Internal Medicine